=== PATIENT | male | born 1990 | race Caucasian/White ===

== ENCOUNTER 2025-02-03 13:24 | Outpatient (CLI) | payer OTHER, SELFPAY ==
[2025-02-03 14:08] LABS: Absolute Lymphocyte Count 1.48 X10^3/uL (0.83-4.51); Absolute Neutrophil Count 2.7 X10^3/uL (2.0-7.7); Basophil# 0.06 X10^3/uL; Basophil% 1.2 % (0-1); Eosinophil# 0.31 X10^3/uL; Eosinophils% 6.1 % (0-5); Hematocrit 35.1 % (40-54); Hemoglobin 11.8 g/dL (13.0-16.5); Lymphocyte # 1.48 X10^3/ul (0.83-4.51); Lymphocyte % 29.1 % (19-41); Mean Corp Hgb Conc 33.6 g/dL (32-36); Mean Corpuscular Hgb 31.1 pg (27.0-32.0); Mean Corpuscular Volume 92.4 fL (80-94); Mean Platelet Vol. 11.6 fl (6.2-12.0); Monocyte# 0.49 X10^3/uL; Monocyte% 9.6 % (0-10); NRBC Flagged by Analyzer 0 % (0-5); Neutrophil # 2.73 X10^3/uL (2.7-7.7); Neutrophil % 53.8 % (47-70); Platelet Count 243 K/mm3 (150-450); RBC Distribution Width CV 12.7 % (11.6-14.6); RBC Distribution Width SD 42.9 fl (35.1-43.9); White Blood Count 5.1 K/mm3 (4.4-11.0)
[2025-02-03 14:39] LABS: ALB/GLOB Ratio 1.9 RATIO (0.9-2.4); AST(SGOT) 17 U/L (<=37); Alanine Aminotransfer ALT/SGPT < 5 U/L (<=46); Albumin, Serum 4.1 g/dL (3.5-5.0); Alkaline Phosphatase 46 U/L (40-129); Anion Gap 9 (5-15); BUN 15 mg/dL (4-19); BUN/Creat Ratio 15.1 RATIO (10-20); Carbon Dioxide 25.5 mmol/L (21.0-32.0); Chloride 105 mmol/L (98-108); Creatinine, Serum 1.02 mg/dL (0.70-1.20); EST Glomerular Filtration Rate 98 (>60); Globulin 2.2 g/dL (2.2-4.2); Glucose 95 mg/dL (70-99); Potassium 4.3 mmol/L (3.3-5.1); Protein, Total 6.3 g/dL (5.9-8.4); Sodium Level 139 mmol/L (133-145)
[2025-02-03 22:06] LABS: Xtra Tube EP Lab EXTRA TUBE
== END 2025-02-03 23:59 | disposition home or self-care (01) ==
PROVIDERS: PCP Internal Medicine; Referring Provider Internal Medicine Infectious Disease; Visit Provider Internal Medicine Infectious Disease
DX: A49.02 Methicillin resistant Staphylococcus aureus infection, unspecified site (principal)
CPT/HCPCS: 36592; 80053; 85025; A4216

== ENCOUNTER 2025-02-10 10:18 | Outpatient (CLI) | payer OTHER, SELFPAY ==
[2025-02-10] MEDS: 0.9% NaCl PICC Flush IV (10:42)
[2025-02-10 11:03] LABS: Basophil# 0.03 X10^3/uL; Basophil% 0.6 % (0-1); Eosinophil# 0.12 X10^3/uL; Eosinophils% 2.4 % (0-5); Hematocrit 39.1 % (40-54); Hemoglobin 13.4 g/dL (13.0-16.5); Lymphocyte % 31.5 % (19-41); Mean Corp Hgb Conc 34.3 g/dL (32-36); Mean Corpuscular Hgb 31.4 pg (27.0-32.0); Mean Corpuscular Volume 91.6 fL (80-94); Mean Platelet Vol. 11.9 fl (6.2-12.0); Monocyte# 0.37 X10^3/uL; Monocyte% 7.3 % (0-10); NRBC Flagged by Analyzer 0 % (0-5); Neutrophil # 2.95 X10^3/uL (2.7-7.7); Platelet Count 250 K/mm3 (150-450); RBC Distribution Width CV 12.4 % (11.6-14.6); Red Blood Count 4.27 M/mm3 (4.6-6.2); White Blood Count 5.1 K/mm3 (4.4-11.0)
[2025-02-10 11:43] LABS: ALB/GLOB Ratio 1.7 RATIO (0.9-2.4); AST(SGOT) 16 U/L (<=37); Alanine Aminotransfer ALT/SGPT < 5 U/L (<=46); Albumin, Serum 4.4 g/dL (3.5-5.0); Alkaline Phosphatase 50 U/L (40-129); Anion Gap 10 (5-15); BUN 14 mg/dL (4-19); Calcium,Total 9.7 mg/dL (7.6-11.0); Carbon Dioxide 26.3 mmol/L (21.0-32.0); Chloride 102 mmol/L (98-108); Creatinine, Serum 0.96 mg/dL (0.70-1.20); EST Glomerular Filtration Rate 106 (>60); Globulin 2.6 g/dL (2.2-4.2); Glucose 122 mg/dL (70-99); Potassium 4.3 mmol/L (3.3-5.1); Sodium Level 138 mmol/L (133-145); Total Bilirubin 0.44 mg/dL (0.00-1.30)
[2025-02-10 18:56] LABS: Xtra Tube EP Lab EXTRA TUBE
--- OUTSIDE RECORDS SUMMARY | 2025-02-10 22:02 | XMS RPT_ITS | CCD ---
Author Organization [facility] Inform ion Partnership [facility] Care Team Providers Care Fiscal Manager Name Role Phone SAMUEL, NATALIE C Unavailable Unavaila ble SAMUEL, NATALIE C Unavailable Unavaila ble NINA FERNANDES Unavailable Unavailabl e Samuel DO, Natalie Unavailable Unavail able Samuel, Natalie C Unavailable Unavaila ble Physicians, [facility] Provide r Phan SOUZA, Dr. Forbes Primary Care Provider Dr. Rio Means MD Attending Provider Dr. Rio Means MD Referring Provider [phone] SALVATORE MAIER Other Provider Andrei Chisholm Primary Care Unavailable DOLLY DAMON Consulting Unavailable Rio Means Referring Unavailable Rio Means Attending Unavailable Andrei Chisholm Primary Care Unavailable Rio Means Referring Unavailable Rio Means Attending Unavailable DAVID CABAN Admitting Unavailable DAVID CABAN Attending Unavailable SALVATORE MAIER Consulting Unavailable SEDA BELLO Referring Unavailable MAIER, SALVATORE A Attending Unavailable MAIER, SALVATORE A Referring Unavailable MAIER, SALVATORE A Attending Unavailable MAIER, SALVATORE A Referring Unavailable SEDA BELLO Referring Unavailable SEDA BELLO D Referring Unavailable MAIER, SALVATORE A Attending Unavailable MAIER, SALVATORE A Admitting Unavailable MAIER, SALVATORE A Attending Unavailable JADA MEANS Consulting ZHANNA Maier Attending Unavailable MAIER, SALVATORE A Referring Unavailable Allergies Allergy Classification Reported Allergen(s) Allergy Type Date of Onset Reaction(s) Facility Opioid Agonists (1 source) Morphine Drug Allergy Hives [facility] Work Phone: (18 sources) amoxicillin; Translations: [AMOXICILLIN] Drug Allergy 6 [facility] Repository Comment on above: too young to remembe r (18 sources) morphine; Translations: [MORPHINE] Drug Allergy 1 [facility] (1 source) OTHER; Translations: [OTHER] Propensity to adverse reactions (disorder) 1 [facility] Medications Current Medications Medication Drug Class(es) Dates Sig (Normalized) Sig (Original) doxycycline hyclate 100 mg oral tablet (5 sources) Tetracycline-class Drug Start: 01-19-2025 End: 01-29-2025 take 1 tablet by mouth twice daily at mealtime doxycycline (VIBRA-TABS) 100 mg tablet Take 1 tablet by mouth two times a day with meals for 10 days. 20 tablet 01/19/2025 01/29/2025 Active gabapentin 300 mg oral capsule (13 sources) Anti-epileptic Agent Start: 12-14-2024 take 1 capsule by mouth once daily gabapentin (NEURONTIN) 300 mg capsule Take 1 capsule by mouth once daily for 5 doses. 5 capsule 12/14/2024 Active ibuprofen 800 mg oral tablet (14 sources) Nonsteroidal Anti-inflammatory Drug Start: 01-25-2025 take 1 tablet by mouth every eight hours as needed ibuprofen (MOTRIN) 800 mg tablet Take 1 tablet by mouth every 8 hours as needed for pain. 30 tablet 1 01/25/2025 Active take 1 tablet by stefani th every six hours as needed ibuprofen (MOTRIN IB) 200 mg tablet Take 200 mg by mouth every 6 hours as needed for pain. Last dose 01/22/25. Active multivit-min/ferrous fumarate (MULTI VITAMIN ORAL) (13 sources) multivit-min/martín darline fumarate (MULTI VITAMIN ORAL) Take by mouth. Active predniSONE 10 mg oral tablet (8 sources) Start: 2024 predniSONE (DELTASONE) 10 mg tablet Take 1 tablet by mouth once daily. TID x 3 days, BID x 3 days, Daily x 3 days. 18 tablet 01/07/2025 Active traMADol hydrochloride 100 mg oral tablet (1 source) Opioid Agonist take 1 tablet by mouth every six hours as needed traMADol 100 mg tablet Take 100 mg by mouth every 6 hours as needed for pain. Active Completed/Discontinued Medications Medication Drug Class(es) Dates Sig (Normalized) Sig (Original) [id number] 200 actuat albuterol 0.09 mg/actuat metered dose inhaler (1 source) beta2-Adrenergic Agonist Start: 07-28-2017 take 2 puff(s) by inhalation every four to six hours as needed ProAir HFA 108 (90 Base) MCG/ACT Inhalation Aerosol Solution INHALE 2 PUFFS EVERY 4-6 HOURS NEEDED. Quantity: 1 Refills: 0 [place] DONatalie Start : 28-Jul-2017 Active 8.5 GM Inhaler docusate sodium 50 mg / sennosides, fci 8.6 mg oral tablet (2 sources) Start: 12-14-2024 End: 12-23-2024 take 1 tablet by mouth once daily senna-docusate (SENNA-S) 8.6-50 mg per tablet Take 1 tablet by mouth once daily. 7 tablet 12/14/2024 12/23/2024 Discontinued Multivitamins TABS (1 source) Multivitamins TA BS Refills: 0 Active Problems Active Problems Problem Classification Problem Date Documented Date Episodic/Chronic Bacterial infection; unspecified site (1 source) Methicillin resistant Staphylococcus aureus infection, unspecified site; Translations: [Methicillin resistant Staphylococcus aureus infection, unspecified site] Onset: 02-06-2025 Episodic Complications of surgical procedures or medical care (2 sources) Postoperative wound infection; Translations: [Infection following a procedure, other surgical site, initial encounter] 01-20-2025 Episodic Fracture of upper limb (20 sources) Closed fracture of olecranon process of left ulna; Translations: [Displaced fracture of olecranon process without intraarticular extension of left ulna, initial encounter for closed fracture] Onset: 12-12-2024 12-13-2024 Episodic Joint disorders and dislocations; trauma-related (14 sources) Chondromalacia of patella; Translations: [Chondromalacia patellae, unspecified knee] Onset: 08-09-2006 12-17-2024 Chronic Other acquired deformities (1 source) Spondylolisthesis, lumbar region; Translations: [Anterolisthesis of lumbar spine] Onset: 12-12-2024 Episodic Other connective tissue disease (1 source) Hand pain; Translations: [Pain in limb] Episodic Other injuries and conditions due to external causes (14 sources) Traumatic injury; Translations: [Injury, unspecified, initial encounter] Onset: 12-12-2024 12-12-2024 Episodic Other lower respiratory disease (3 sources) Shortness of breath; Translations: [Cough] Onset: 07-28-2017 Episodic Other lower respiratory disease (1 source) Cough; Translations: [Cough] Episodic Other nervous system disorders (1 source) Skin sensation disturbance; Translations: [Disturbance of skin sensation] Episodic Other non-traumatic joint disorders (1 source) Pain in elbow; Translations: [Pain in left elbow] 02-07-2025 Episodic Other non-traumatic joint disorders (1 source) Effusion, unspecified knee; Translations: [Suprapatellar effusion of knee] Onset: 12-12-2024 Episodic Residual codes; unclassified (1 source) History finding; Translations: [Other specified conditions influencing health status] Episodic Residual codes; unclassified (1 source) History of operation on musculoskeletal system; Translations: [Other specified postprocedural states] 02-07-2025 Episodic Residual codes; unclassified (1 source) Other specified postprocedural states; Translations: [Status post surgery] Onset: 02-07-2025 Episodic Unclassified (2 sources) Cough / R05(ICD-10) Onset: 07-28-2017 Unclassified (2 sources) Shortness of breath / R06.02(ICD-10) Onset: 07-28-2017 Unclassified (2 sources) Pain in left hand / M79.642(ICD-10) Onset: 07-28-2017 Unclassified (2 sources) Unspecified disturbances of skin sensation / R20.9(ICD-10) Onset: 07-28-2017 Unclassified (2 sources) Pain in right hand / M79.641(ICD-10) Onset: 07-28-2017 Past or Other Problems Problem Classification Problem Date Documented Da te Episodic/Chronic Biliary tract disease (14 sources) Acute cholecystitis; Translations: [Acute cholecystitis] Onset: 01-15-2011 01-15-2011 Episodic Other nervous system disorders (1 source) Unspecified disturbances of skin sensation; Translations: [Unspecified disturbances of skin sensation] Onset: 07-28-2017 Episodic Other non-traumatic joint disorders (14 sources) Arthralgia of the pelvic region and thigh; Translations: [Pain in unspecified hip] Onset: 08-09-2006 12-17-2024 Episodic Other nutritional; endocrine; and metabolic disorders (14 sources) Body mass index 25-29 - overweight; Translations: [Overweight] Onset: 03-19-2014 03-19-2014 Episodic Spondylosis; intervertebral disc disorders; other back problems (14 sources) Low back pain; Translations: [Lumbago] Onset: 08-09-2006 12-17-2024 Episodic Suicide and intentional self-inflicted injury (1 source) Suicidal ideations; Translations: [Suicidal ideations] Onset: 10-21-2017 Episodic Unclassified (1 source) Pain in right hand; Translations: [Pain in right hand] Onset: 07-28-2017 Unclassified (1 source) Pain in left hand; Translations: [Pain in left hand] Onset: 07-28-2017 Unclassified (4 sources) Closed fracture of olecranon process of left ulna 12-23-2024 NEGATED: Highlighted row has not occurred!Residual codes; unclassified (1 source) Disease Episodic Results Test Name Value Interpretation Reference Range Facility [facility] 02-07-2025 CNOV Office Visit ([facility] ) DAVID MUNOZ ([id number]) 1990 M Date Time Provider Department 02/07/25 8:45 AM ZHANNA CHRISTY [facility] During your visit today, we recorded the following information about you: Pulse Weight Height 78/minute 89.8 kg 1.829 m Zhanna Christy APRN.CNP 02/07/2025 9:57 AM Signed SERVICE DATE: February 07, 2025 PCP: [facility] Subjective Patient ID: Davidjayne Munoz is a 35-year-old male presenting for follow-up of a left elbow wound. Left Elbow Wound: - Wound is healing well, but machine tender at times. - Not weight-bearing; moving the elbow more but avoiding lifting. - Concerned about previous infection. - Noticed finger tremors post-surgery; describes difficulty keeping fingers still. - Denies wound leakage. - Using long, [place] dressings, causing discomfort due to hair removal. - Girlfriend, a nurse, assists with wound care. -denies fever/chills Headaches: - Onset pre-infection; occurring every other day. Now less often, in temples. - Located above the temples and on the top of the head. - Alleviated with ibuprofen/tylenol. Chief Complaint Left Elbow - Post Op PAIN EVALUATION 02/07/2025 0831 Pain Level: 3 Pain Location: Elbow-Left Description: Tenderness Duration Amount of Time: 12 Duration Units: Days Frequency: Intermittent HPI Review of Systems ACTIVE PROBLEM LIST Chondromalacia of Patella PAIN LOW BACK Pain in Joint, Pelvic Region and Thigh Acute Cholecystitis Overweight (Bmi 25.0-29.9) Trauma Olecranon Fracture, Left, Closed, Initial Encounter Nondisplaced Fracture of Coronoid Process of Left Ulna, Initial Encounter for Closed Fracture Left Radial Head Fracture Preop Testing Closed Comminuted Fracture of Proximal End of Left Ulna, [place] PAST MEDICAL HISTORY Diagnosis Date History of blood clotting factor deficiency grandmother and mom have factor 5 Pure hypercholesterolemia no meds PAST SURGICAL HISTORY Procedure Laterality Date LAPS SURG CHOLECYSTECTOMY W/CHOLANGIOGRAPHY 01/14/2011 Normal IOC, Acute cholecystitis TREAT ULNAR FRACTURE Left 12/13/2024 FAMILY HISTORY Problem Relation Age of Onset Cancer Other uterine Cancer Other Diabetes Maternal Grandmother other (increased chol [Other]) Other mother Social History Tobacco Use Smoking status: Former Types: Cigarettes Smokeless tobacco: Current Types: Chew Tobacco comments: Quit smoking 2017. Now uses the [employer] nicotine pouches. Vaping Use Vaping status: Former Substance Use Topics Alcohol use: No Drug use: Never ALLERGIES Allergen Reactions Amoxicillin Rash Morphine Hives MEDICATIONS: traMADol 100 mg tablet Take 100 mg by mouth every 6 hours as needed for pain. ibuprofen (MOTRIN) 800 mg tablet Take 1 tablet by mouth every 8 hours as needed for pain. ibuprofen (MOTRIN IB) 200 mg tablet Take 200 mg by mouth every 6 hours as needed for pain. Last dose 01/22/25. predniSONE (DELTASONE) 10 mg tablet Take 1 tablet by mouth once daily. TID x 3 days, BID x 3 days, Daily x 3 days. (Patient not taking: Reported on 02/07/2025) multivit-min/ferrous fumarate (MULTI VITAMIN ORAL) Take by mouth. (Patient not taking: Reported on 02/07/2025) gabapentin (NEURONTIN) 300 mg capsule Take 1 capsule by mouth once daily for 5 doses. (Patient taking differently: Take 300 mg by mouth once daily. No longer on pacc call 01/22/25) Allergies, medications, past surgical history, family history and past medical history were reviewed per this encounter. Objective Ortho Exam Musculoskeletal: (+) elbow tenderness Skin: (-) forearm rash on exam, (+) bilateral arm pruritus with antibiotic infusion, (-) wound drainage Neurological: (+) finger tremor, (-) elbow tremor, (+) headaches - Musculoskeletal: - Elbow: Wound healing well, no signs of infection, mild tenderness noted. Assessment/Plan ASSESSMENT Diagnosis (Z98.890) Status post surgery (primary encounter diagnosis) Plan: XR ELBOW GENERAL 2V AP/LAT LEFT Office Visit on 02/07/25 XR ELBOW GENERAL 2V AP/LAT LEFT Procedures PLAN Assessment AND Plan Status post surgery Pain in left elbow Wound infection after surgery Status post open reduction and internal fixation (ORIF) of fracture 1. Status post surgery (Z98.890) 2. Wound infection after surgery (T81.49XA) 3. Ulna fracture (ORIF), left, closed - Surgical site healing well; area over the elbow, typically the last to heal due to frequent movement, is progressing satisfactorily. - Sutures removed; no signs of purulent discharge or significant edema/erythema. - No need for wound dressing unless exudate is present; advised to leave the wound open to air and avoid application of lotions, creams, or ointments. - Scheduled follow-up in 2 weeks to assess wound healing and discuss progression to weight-bearing activities. (more content not included)... Normal [facility] Absolute lymphocyte countOrd ered By: Rio Means on 02-03-2025 Lymphocytes Auto (Unsp spec) [#/Vol] 1.48 10*3/uL 0.83-4.51 [facility] Absolute neutrophil countOrd ered By: Rio Means on 06-16-2025 Neutrophils (Bld) [#/Vol] 2.7 10*3/uL 2.0-7.7 [facility] Anion gap in Serum or Plasma Ordered By: Rio Means on 02-03-2025 Anion gap [Moles/Vol] 9 mmol/L 5-15 [facility] Automated blood erythrocyte countOrdered By: Rio Means on 02-03-2025 RBC (Bld) [#/Vol] 3.80 10*6/uL Low 4.6-6.2 [facility] Comment on above: Performed By: #### L 100.0100, L500.4050 #### [facility] [address] [place], [place], [id number] Automated blood hematocrit ( percentage)Ordered By: Rio Means on 02-03-2025 Hematocrit (Bld) [Volume fraction] 35.1 % Low 40-54 [facility] Comment on above: Performed By: #### L 100.0100, L500.4050 #### [facility] [address] [place], [place], [id number] Automated lymphocyte count a s percentage of total leukocytesOrdered By: Rio Means on 02-03-2025 Lymphocytes/100 WBC Auto (Unsp spec) 29.1 % 19-41 [facility] BUN/creatinine ratioOrdered By: Rio Means on 02-03-2025 Urea nitrogen/Creatinine [Mass ratio] 15.1 mg/mg 10-20 [facility] Basophil percentageOrdered B y: Rio Means on 02-03-2025 Basophils/100 WBC (Bld) 1.2 % High 0-1 [facility] Comment on above: Performed By: #### L 100.0100, L500.4050 #### [facility] [address] [place], [place], [id number] Bilirubin, totalOrdered By: Rio Means on 02-03-2025 Bilirubin [Mass/Vol] 0.30 mg/dL Normal 0.00-1.30 [facility] Comment on above: Performed By: #### L 100.0100, L500.4050 #### [facility] [address] [place], [address] CBC W/Diff, Automatedon 01-19 Absolute Lymph 1.48 X10 3/uL Normal 0.83-4.51 [facility] Comment on above: Performed By: #### L 100.0100, L500.4050 #### [facility] [address] [place], [address] Absolute Neut 2.7 X10 3/uL Normal 2.0-7.7 [facility] Comment on above: Performed By: #### L 100.0100, L500.4050 #### [facility] [address] [place], [address] IG% 0.200 Normal 0.0-0.9 [facility] Comment on above: Result Comment: IG% - Immature Granulocytes (promyelocytes, myelocytes and metamyelocytes) > 1% indicates that a LEFT SHIFT is Present. Performed By: #### L 100.0100, L500.4050 #### [facility] [address] [place], [address] Lymphocytes/100 WBC (Bld) 29.1 % Normal 19-41 [facility] Comment on above: Performed By: #### L 100.0100, L500.4050 #### [facility] [address] [place], [address] Nucleated RBC (Bld) [#/Vol] 0 10*3/uL Normal 0-5 [facility] Comment on above: Performed By: #### L 100.0100, L500.4050 #### [facility] [address] [place], [address] RDW SD 42.9 fl Normal 35.1-43.9 [facility] Comment on above: Performed By: #### L 100.0100, L500.4050 #### [facility] [address] [place], [address] Carbon dioxide, total [Moles /volume] in Central venous bloodOrdered By: Rio Means on 02-03-2025 CO2 [Moles/Vol] 25.5 mmol/L Normal 21.0-32.0 [facility] Comment on above: Performed By: #### L 100.0100, L500.4050 #### [facility] [address] [place], [address] Chloride assayOrdered By: Cruz Means on 02-03-2025 Chloride [Moles/Vol] 105 mmol/L Normal 98-108 [facility] Comment on above: Performed By: #### L 100.0100, L500.4050 #### [facility] [address] [place], [address] Comprehensive Metabolic Prof ilon 02-03-2025 ALK PHOS 46 U/L Normal 40-129 [facility] Comment on above: Performed By: #### L 100.0100, L500.4050 #### [facility] [address] [place], [address] BUN/CRE 15.1 RATIO Normal 10-20 [facility] Comment on above: Performed By: #### L 100.0100, L500.4050 #### [facility] [address] [place], [address] GAP 9 Normal 5-15 [facility] Comment on above: Performed By: #### L 100.0100, L500.4050 #### [facility] [address] [place], [address] Potassium [Moles/Vol] 4.3 mmol/L Normal 3.3-5.1 [facility] Comment on above: Performed By: #### L 100.0100, L500.4050 #### [facility] [address] [place], [address] T PROT 6.3 g/dL Normal 5.9-8.4 [facility] Comment on above: Performed By: #### L 100.0100, L500.4050 #### [facility] [address] [place], [address] Comprehensive Metabolic Prof ilOrdered By: Rio Means on 02-03-2025 AST [Catalytic activity/Vol] 17 U/L Normal <=37 [facility] Comment on above: Performed By: #### L 100.0100, L500.4050 #### [facility] [address] [place], [address] Eosinophil percentageOrdered By: Rio Means on 02-03-2025 Eosinophils/100 WBC (Bld) 6.1 % High 0-5 [facility] Comment on above: Performed By: #### L 100.0100, L500.4050 #### [facility] [address] [place], [address] Erythrocyte distribution wid th ratioOrdered By: Rio Means on 02-03-2025 Erythrocyte distribution width (RBC) [Ratio] 12.7 % Normal 11.6-14.6 [facility] Comment on above: Performed By: #### L 100.0100, L500.4050 #### [facility] [address] [place], [address] Erythrocyte distribution wid th standard deviationOrdered By: Rio Means on 02-03-2025 Erythrocyte distribution width (RBC) [Ratio] 42.9 fl 35.1-43.9 [facility] Glomerular filtration rate ( GFR) estimation/1.73 sq m using serum, plasma, or whole bOrdered By: Rio Means on 02-03-2025 GFR/1.73 sq M.predicted among non-blacks MDRD (S/P/Bld) [Vol rate/Area] 98 mL/min/{1.73_m2} Normal >60 [facility] Comment on above: mL/min/1.73m2 CKD-EP I Creatinine Equation (2020) Result Comment: mL/m in/1.73m2 CKD-EPI Creatinine Equation (2020) Performed By: #### L 100.0100, L500.4050 #### [facility] [address] [place], [address] Hemoglobin measurementOrdere d By: Rio Means on 02-03-2025 Hemoglobin (Bld) [Mass/Vol] 11.8 g/dL Low 13.0-16.5 [facility] Comment on above: Performed By: #### L 100.0100, L500.4050 #### [facility] [address] [facility] [place], [address] Immature granulocytes/100 WB C Auto (Bld)Ordered By: Rio Means on 02-03-2025 Immature granulocytes/100 WBC (Bld) 0.200 % 0.0-0.9 [facility] Comment on above: IG% - Immature Granu locytes (promyelocytes, myelocytes and metamyelocytes) > 1% indicates that a LEFT SHIFT is Present. MCV (mean corpuscular volume ) determinationOrdered By: Rio Means on 02-03-2025 MCV (RBC) [Entitic vol] 92.4 fL Normal 80-94 [facility] Comment on above: Performed By: #### L 100.0100, L500.4050 #### [facility] [address] [place], [address] Mean corpuscular hemoglobin (MCH) determinationOrdered By: Rio Means on 02-03-2025 MCH (RBC) [Entitic mass] 31.1 pg Normal 27.0-32.0 [facility] Comment on above: Performed By: #### L 100.0100, L500.4050 #### [facility] [address] [place], [address] Mean corpuscular hemoglobin concentration (MCHC) determinationOrdered By: Rio Means on 02-03-2025 MCHC (RBC) [Mass/Vol] 33.6 g/dL Normal 32-36 [facility] Comment on above: Performed By: #### L 100.0100, L500.4050 #### [facility] [address] [place], [address] Mean platelet volume determi nationOrdered By: Rio Means on 02-03-2025 Platelet mean volume (Bld) [Entitic vol] 11.6 fL Normal 6.2-12.0 [facility] Comment on above: Performed By: #### L 100.0100, L500.4050 #### [facility] [address] [place], [address] Monocyte percentageOrdered B y: Rio Means on 02-03-2025 Monocytes/100 WBC (Bld) 9.6 % Normal 0-10 [facility] Comment on above: Performed By: #### L 100.0100, L500.4050 #### [facility] [address] [place], [address] Neutrophil percentageOrdered By: Rio Means on 02-03-2025 Neutrophils/100 WBC (Bld) 53.8 % Normal 47-70 [facility] Comment on above: Performed By: #### L 100.0100, L500.4050 #### [facility] [address] [place], [address] Nucleated red blood cell per centageOrdered By: Rio Means on 02-03-2025 Nucleated RBC/100 WBC (Bld) [Ratio] 0 % 0-5 [facility] Platelet countOrdered By: Cruz Means on 02-03-2025 Platelets (Bld) [#/Vol] 243 10*3/uL Normal 150-450 [facility] Comment on above: Performed By: #### L 100.0100, L500.4050 #### [facility] [address] [place], [address] Potassium measurement (mass/ volume)Ordered By: Rio Means on 02-03-2025 Potassium (Unsp spec) [Mass/Vol] 4.3 mmol/L 3.3-5.1 [facility] Serum creatinine measurement (mass/volume)Ordered By: Rio Means on 02-03-2025 Creatinine [Mass/Vol] 1.02 mg/dL Normal 0.70-1.20 [facility] Comment on above: Performed By: #### L 100.0100, L500.4050 #### [facility] [address] [place], [address] Serum globulin measurementOr dered By: Rio Means on 02-03-2025 Globulin (S) [Mass/Vol] 2.2 g/dL Normal 2.2-4.2 [facility] Comment on above: Performed By: #### L 100.0100, L500.4050 #### [facility] [address] [place], [address] Serum glucose measurement (m ass/volume)Ordered By: Rio Means on 02-03-2025 Glucose [Mass/Vol] 95 mg/dL Normal 70-99 [facility] Comment on above: Performed By: #### L 100.0100, L500.4050 #### [facility] [address] [place], [address] Serum or plasma alanine kamara otransferase (ALT) measurementOrdered By: Rio Means on 02-03-2025 ALT [Catalytic activity/Vol] U/L Normal <=46 [facility] Comment on above: Performed By: #### L 100.0100, L500.4050 #### [facility] [address] [place], [address] Serum or plasma albumin maikel urement (mass/volume)Ordered By: Rio Means on 02-03-2025 Albumin [Mass/Vol] 4.1 g/dL Normal 3.5-5.0 [facility] Comment on above: Performed By: #### L 100.0100, L500.4050 #### [facility] [address] [place], [address] Serum or plasma albumin/glob ulin mass ratioOrdered By: Rio Means on 02-03-2025 Albumin/Globulin [Mass ratio] 1.9 {ratio} Normal 0.9-2.4 [facility] Comment on above: Performed By: #### L 100.0100, L500.4050 #### [facility] [address] [place] [place], [address] Serum or plasma alkaline shamar sphatase measurementOrdered By: Rio Means on 02-03-2025 ALP [Catalytic activity/Vol] 46 U/L 40-129 [facility] Serum or plasma calcium maikel urement (mass/volume)Ordered By: Rio Means on 02-03-2025 Calcium [Mass/Vol] 9.0 mg/dL Normal 7.6-11.0 [facility] Comment on above: Performed By: #### L 100.0100, L500.4050 #### [facility] [address] [place], [address] Serum or plasma urea nitroge n measurement (mass/volume)Ordered By: Rio Means on 02-03-2025 Urea nitrogen [Mass/Vol] 15 mg/dL Normal 4-19 [facility] Comment on above: Performed By: #### L 100.0100, L500.4050 #### [facility] [address] [place], [address] Sodium levelOrdered By: Rio eMans on 02-03-2025 Sodium [Moles/Vol] 139 mmol/L Normal 133-145 [facility] Comment on above: Performed By: #### L 100.0100, L500.4050 #### [facility] [address] [place], [address] Total proteinOrdered By: Rosemarie cotter Clary on 02-03-2025 Protein [Mass/Vol] 6.3 g/dL 5.9-8.4 [facility] White blood cell (WBC) count Ordered By: Rio Clary on 02-03-2025 WBC (Bld) [#/Vol] 5.1 10*3/uL Normal 4.4-11.0 [facility] Comment on above: Performed By: #### L 100.0100, L500.4050 #### [facility] [address] [place], [place], [address] CNDSon 01-28-2025 [facility] HNO ID: [id number] Author: SALVATORE MAIER MD Service: Orthopaedic Surgery Author Type: Nurse Practitioner Type: Discharge Summary Filed: 01/28/2025 11:33 Note Text: Attestation signed by Salvatore Maier MD at 01/28/2025 11:33 AM Agree DISCHARGE SUMMARY PATIENT NAME: David Munoz ADMISSION DATE: 01/24/2025 DISCHARGE DATE: 01/28/2025 ATTENDING PHYSICIAN: Salvatore Maier MD Code Status: Prior Highest Readmission Risk Score: 7 The 30 day readmissions risk score is derived from an internally validated risk model which evaluates patient level characteristics, utilization history, medication orders and lab results up until the day of discharge. Patients with a score of 39 or above are considered highest risk for readmission. Specific patient level drivers will be listed at the bottom of the summary. CONSULTING TEAMS DURING HOSPITALIZATION: Treatment Team: Attending Provider: Salvatore Maier MD Consulting: Jada Means MD REASON FOR HOSPITALIZATION: Left elbow post operative infection. FINAL DIAGNOSIS: Left elbow IANDD Active Hospital Problems Diagnosis POA Closed comminuted fracture of proximal end of left ulna, sequela Yes Preop testing Unknown Resolved Hospital Problems No resolved problems to display. OPERATIONS DURING HOSPITALIZATION: Left elbow I AND D PROCEDURES DURING HOSPITALIZATION: No procedures performed HOSPITAL COURSE: Principal Problem: Closed comminuted fracture of proximal end of left ulna, sequela Active Problems: Preop testing Resolved Problems: * No resolved hospital problems. * PATIENT CONDITION AT DISCHARGE: Stable DISCHARGE DISPOSITION: Home with Self Care Discharge Physical Exam: VITAL SIGNS: BP 107/67 Pulse 68 Temp 36.6 ?C (97.8 ?F) Resp 18 Ht 182.9 cm (6') Wt 90.2 kg (198 lb 13.7 oz) SpO2 96% BMI 26.97 kg/m? GENERAL: Alert, no distress, cooperative SKIN: Skin color, texture, turgor normal. No rashes or lesions. EXTREMITIES: Extremities normal, no deformities, edema, clubbing or skin discoloration. Good capillary refill., No ulcers NEURO: Gait normal. Reflexes normal and symmetric. Sensation grossly intact, Cranial nerves II-XII intact PULSES: 2+ radial INFORMATION PROVIDED TO PATIENT: Symptoms of an Infection to Watch for Include: Fever Swelling Increase in Redness Pus WOUND/SURGICAL SITE CARE: Wound/Surgical Site Care Do not change or remove your dressing Keep your dressing clean and dry Wash your hands frequently, especially before touching your incision, after using restroom and before eating You may change your dressing daily beginning on: Day 7 You may change your dressing daily beginning on: Please remove wound vac dressing post op day 7 or when the wound vac battery dies, whichever comes first. You may change your dressing daily beginning on Post operative day 7 DIET: Resume your pre-hospital diet ACTIVITY: Lifting is restricted to: Non weight bearing left arm ALLERGIES Allergen Reactions Amoxicillin Rash Morphine Hives DISCHARGE MEDICATION: Medication List START taking these medications traMADol 50 mg tablet Commonly known as: ULTRAM Take 1 tablet by mouth every 6 hours as needed for pain for up to 7 days. CHANGE how you take these medications gabapentin 300 mg capsule Commonly known as: NEURONTIN Take 1 capsule by mouth once daily for 5 doses. What changed: additional instructions * MOTRIN IB 200 mg tablet Generic drug: ibuprofen What changed: Another medication with the same name was added. Make sure you understand how and when to take each. * ibuprofen 800 mg tablet Commonly known as: MOTRIN Take 1 tablet by mouth every 8 hours as needed for pain. What changed: You were already taking a medication with the same name, and this prescription was added. Make sure you understand how and when to take each. * This list has 2 medication(s) that are the same as other medications prescribed for you. Read the directions carefully, and ask your doctor or other care provider to review them with you. CONTINUE taking these medications doxycycline 100 mg tablet Commonly known as: vibra-tabs Take 1 tablet by mouth two times a day with meals for 10 days. MULTI VITAMIN ORAL predniSONE 10 mg tablet Commonly known as: DELTASONE Take 1 tablet by mouth once daily. TID x 3 days, BID x 3 days, Daily x 3 days. Where to Get Your Medications These medications were sent to [facility] [address] [place] [phone] [place] [id number] ibuprofen 800 mg tablet traMADol 50 mg tablet FUTURE APPOINTMENTS: Future Appointments Date Time Provider Department Center 02/07/2025 8:45 AM Zhanna Christy APRN. (more content not included)... [facility] CONSULT PROHitesh 2025 CONSULT PROG HNO ID: [id number] Author: SENIA ADKINS RPh Service: Pharmacy Author Type: Pharmacist Type: Consult Progress Note Filed: 2025 09:10 Note Text: PHARMACY VANCOMYCIN DOSING NOTE Patient Name: David Munoz Admission Date: 01/24/2025 Date of Consult: 2025 Time of Consult: 9:10 AM RECOMMENDATIONS/PLAN: Pharmacy consulted for vancomycin dosing for David Munoz, a 35 year old male. Vancomycin therapy has been discontinued. Vancomycin level(s) have been discontinued: Not Applicable. The pharmacy vancomycin dosing service will sign off. Thank you for allowing us to participate in this patient's care. Please contact pharmacy if there are questions. Senia Adkins [facility] ESR Westergren method (Bld) [Velocity]on 01-26-2025 ESR (Bld) [Velocity] 16 mm/h High 0-15 [facility] Comment on above: Order Comment: Speci men Type: BLOOD SPECIMEN Ordering Facility: [facility] Address: [address] [place], [place] [address] [address] Performed By: #### 2 4323-8, 3040-3, 5643-2 #### [facility] CLIA [id number] [address] [place] [address] [place] ANES POSTPROC EVALon 025 ANES POSTPROC EVAL HNO ID: [id number] Author: LAURIE HOLLY DO Service: Anesthesiology Author Type: Anesthesiologist Type: Anesthesia Postprocedure Evaluation Filed: 01/25/2025 06:45 Note Text: POST ANESTHESIA EVALUATION NOTE : 1990 Procedure Summary Date: 01/24/25 Room / Location: OR 01 / OR Anesthesia Start: 1618 Anesthesia Stop: 1718 Procedure: INCISION AND DRAINAGE POST OP INFECTION UPPER EXTREMITY (Left: Elbow) Diagnosis: Olecranon fracture, left, closed, initial encounter (Olecranon fracture, left, closed, initial encounter [S52.022A]) Surgeons: Salvatore Maier MD Responsible Provider: Laurie Holly DO Anesthesia Type: general ASA Status: 2 Anesthesia Type: general Airway Type: LMA Last Vitals Vitals Value Taken Time BP 99/50 01/25/25 0307 Temp 36.8 ?C (98.2 ?F) 01/25/25 0307 HR SpO2 61 01/24/25 1818 Resp 16 01/25/25 0307 SpO2 96 % 01/25/25 0307 Vitals shown include unfiled device data. Post Anesthesia Patient Status Patient Evaluation: PACU. PACU/ICU Patient Condition: stable. Anticipated Disposition: inpatient floor planned admission. Neurological Status: aware and responsive. Pulmonary Status: breathing comfortably on room air Airway Control: returned to baseline unsupported. Cardiovascular Status: stable. Pain Management: clinically adequate - multimodal analgesia pain management approach Postoperative Hydration: acceptable. Intraoperative Events: no significant anesthesia events Recommendation: continue current plan of care. Anesthesia Observations No Documentation SIGNATURE: Laurie Holly DO PATIENT NAME: David Munoz DATE: January 25, 2025 TIME: 6:45 AM CSN: [id number] [facility] CONSULTon 01-25-2025 CONSULT HNO ID: [id number] Author: JADA MEANS MD Service: Infectious Disease Author Type: Physician Type: Consults Filed: 01/25/2025 11:28 Note Text: INFECTIOUS DISEASE INITIAL CONSULT NOTE SERVICE DATE: 01/25/2025 SERVICE TIME: 11:24 AM REASON FOR CONSULT: Postop left olecranon fracture orthopedic repair with infection Subjective Patient is seen at the request of Salvatore Davis MD for my opinion regarding postop infection left elbow. My final recommendations will be communicated back to the requesting physician by way of copy of this note or shared electronic medical record. HPI: David Munoz who is a 34 year old male suffered a traumatic fall with a left olecranon fracture in late November and underwent surgical repair of the left olecranon fracture on December 13. Patient did well postop until roughly 10 days ago when he noted increasing swelling at the surgical site and then noted drainage. Patient did have low-grade fever late last week. Noted purulent drainage that prompted administration of oral antibiotic therapy. Patient was taken to the operating room yesterday for surgical IANDD of the left elbow surgical site. Operative note reviewed. Currently on parenteral vancomycin. Does not recall the name of the oral antibiotic that he received for his girlfriend who is a nurse will easily know and the patient is reaching out to her. PAST MEDICAL HISTORY Diagnosis Date History of blood clotting factor deficiency grandmother and mom have factor 5 Pure hypercholesterolemia no meds PAST SURGICAL HISTORY Procedure Laterality Date LAPS SURG CHOLECYSTECTOMY W/CHOLANGIOGRAPHY 01/14/2011 Normal IOC, Acute cholecystitis TREAT ULNAR FRACTURE Left 12/13/2024 Social History Tobacco Use Smoking status: Former Types: Cigarettes Smokeless tobacco: Current Types: Chew Tobacco comments: Quit smoking 2017. Now uses the [employer] nicotine pouches. Vaping Use Vaping status: Former Substance Use Topics Alcohol use: No Drug use: Never FAMILY HISTORY Problem Relation Age of Onset Cancer Other uterine Cancer Other Diabetes Maternal Grandmother other (increased chol [Other]) Other mother Immunization History Administered Date(s) Administered Haemophilus influenzae b (HbOC) vaccine, 4-dose series (HIBTITER) 1990 05/23/1991 06/12/1993 04/12/1995 diphtheria tetanus pertussis (DTaP) vaccine, pediatric (INFANRIX) 1990 1990 1990 06/12/1993 04/12/1995 measles mumps rubella (MMR) vaccine (M-M-R II, PRIORIX) 05/23/1991 poliovirus (OPV) vaccine, trivalent, live, oral (ORIMUNE) 1990 1990 06/12/1993 04/12/1995 tuberculin skin test (TST-PPD), purified protein derivative, intradermal 05/23/1991 Current Facility-Administered Medications Medication Dose Route Frequency vancomycin iv piggyback 1 g in D5W 200 mL (VANCOCIN) 1 g INTRAVENOUS q 12 HR gabapentin 300 mg cap(s) (NEURONTIN) 300 mg ORAL DAILY pkjzmfe-sduyccayr-ayjxplh D3 500 mg-5 mcg (200 unit) 2 tablet 2 tablet ORAL BID lactated ringers iv infusion 75 mL/hr INTRAVENOUS CONTINUOUS traMADol 50 mg tab(s) (ULTRAM) 50 mg ORAL q 6 H PRN ondansetron (PF) 4 mg injection (ZOFRAN) 4 mg INTRAVENOUS q 6 H PRN ibuprofen 800 mg tab(s) (MOTRIN) 800 mg ORAL q 8 H PRN HYDROmorphone (PF) 0.5 mg injection (DILAUDID) 0.5 mg INTRAVENOUS q 4 H PRN Active Antimicrobials (From admission, onward) Start Stop 01/25/25 0830 vancomycin iv piggyback 1 g in D5W 200 mL (VANCOCIN) 1 g, INTRAVENOUS, EVERY 12 HOURS -- ALLERGIES Allergen Reactions Amoxicillin Rash Morphine Hives REVIEW OF SYSTEMS: See HPI As stated in history of present illness others negative Objective PHYSICAL EXAM: BP 109/64 Pulse 56 Temp (Src) 98.1 (Oral) Resp 16 Ht 6' 0 (1.83m) Wt 198 lb 13.7 oz (90.2kg) SpO2 98% BMI 26.96 kg/(m2). O2 Therapy: Room Air Alert responsive does not appear toxic head and neck exams unremarkable lungs are clear heart exam S1-S2 abdomen soft nontender. Left arm postop dressings are in place Lines, Drains, and Airways Line Duration Peripheral 01/24/25 1452 Right Antecubital 20 Gauge <1 day DATA: Diagnostic tests reviewed for today's visit: CBC, Coags, BMP, Mg, Phos Liver Function, Amylase, AND Lipase Impression/Recommendations David Munoz is a 34 year old male postop left olecranon fracture repair infection. Status post surgical IANDD of the left elbow. Will closely follow the intraoperative culture data and continue parenteral antimicrobial therapy at this time. Empirically on parenteral vancomycin. The patient will provide me with the name of the oral antibiotic that he took shortly before his surgery this week. Please feel free to call or page us with concerns or questions. Thank you for allowing us to partake in the care of your patient. SIGNATURE: Jada Means MD PATIENT NAME: David Munoz DATE: January 25 (more content not included)... [facility] ANES PRE-OPon 01-24-2025 ANES PRE-OP HNO ID: [id number] Author: DENNIS BOLAND DO Service: Anesthesiology Author Type: Anesthesiologist Type: Anesthesia Preprocedure Evaluation Filed: 01/24/2025 14:30 Note Text: ANESTHESIOLOGY DAY OF SURGERY NOTE : 1990 Procedure Information Date/Time: 01/24/25 1530 Procedure: INCISION AND DRAINAGE POST OP INFECTION UPPER EXTREMITY (Left: Elbow) Location: OR 01 / MR OR Surgeons: Salvatore Maier MD Estimated body mass index is 26.97 kg/m? as calculated from the following: Height as of this encounter: 182.9 cm (6'). Weight as of this encounter: 90.2 kg (198 lb 13.7 oz). Diagnosis: Olecranon fracture, left, closed, initial encounter [S52.022A] Pre-op diagnosis: Olecranon fracture, left, closed, initial encounter [S52.022A] Location: OR 01 / MR OR Surgeons: Salvatore Maier MD Most recent hematocrit and potassium results: Hematocrit 41.3 12/13/2024 Potassium 4.2 12/13/2024 Hemoglobin (g/dL) Date Value 12/13/2024 14.6 10/21/2017 16.7 Hematocrit (%) Date Value 12/13/2024 41.3 10/21/2017 48.8 WBC (k/uL) Date Value 12/13/2024 7.40 10/21/2017 8.60 Platelet Count (k/uL) Date Value 12/13/2024 210 10/21/2017 287 CMP: Glucose 103 12/13/2024 BUN 18 12/13/2024 Creatinine 0.97 12/13/2024 Sodium 136 12/13/2024 Potassium 4.2 12/13/2024 Chloride 105 12/13/2024 CO2 26 12/13/2024 Protein, Total 6.7 12/12/2024 Albumin 4.2 12/12/2024 Calcium 9.3 12/13/2024 Alkaline Phosphatase 48 12/12/2024 Bilirubin, Total 0.7 12/12/2024 AST 26 12/12/2024 ALT 16 12/12/2024 34yo male, exsmoker, chews tobacco. PMH: last OR 11/2024, HLD (no meds) History Comments Pure hypercholesterolemia no meds History of blood clotting factor deficiency grandmother and mom have factor 5 Relevant Problems No relevant active problems Surgical History Current as of 01/24/25 142 LAPS SURG CHOLECYSTECTOMY W/CHOLANGIOGRAPHY TREAT ULNAR FRACTURE left 12/13/2024 Substance History Current as of 01/24/25 1424 Smoking Status: Former Smokeless Tobacco Status: Current Comments: Quit smoking 2016. Now uses the [employer] nicotine pouches. Alcohol use: No Drug use: Never I - PHYSICAL EVALUATION AIRWAY Patient intubated: No. Tracheostomy tube not present Mallampati: I. TM distance: >3 FB. Neck ROM: full ROM without neurological symptoms. Mouth opening: adequate. Short neck: no. Thick neck: no Johnston present: yes Lip Bite Test: I Microretrognathia/Micronagthi a/Recessed Chin: No DENTAL Dental findings: teeth intact. Additional exam findings: yes. CARDIOVASCULAR Rhythm: regular PULMONARY Breath sounds clear to auscultation. II - ANESTHESIA PLAN ASA Score: 2 Anesthetic Plan: general Airway type: LMA The patient is not a current smoker. NPO Status: adequate Anesthetic plan additional comments: The patient admitted to chewing tobacco.. Beta Alex Monitoring Plan Monitoring plan: standard ASA. Post Procedure Analgesic Plan Postoperative analgesic plan: multimodal analgesia. Informed Consent Anesthetic risks, benefits, alternatives, personnel and consent discussed: yes. Patient / Responsible Republican agrees to proceed: yes Patient / Surrogate agrees to blood products: blood products not planned Discussed the possibility of lip / dental damage: yes Vitals Value Taken Time BP 129/61 01/24/25 1417 Pulse 63 01/24/25 1418 Resp 18 01/24/25 1414 Temp 36.6 ?C (97.9 ?F) 01/24/25 1414 SpO2 100 % 01/24/25 1418 Vitals shown include unfiled device data. Facility-Administered Medications as of 01/24/2025 Medication Dose Route Frequency lidocaine 10 mg/mL (1 %) 2 mg injection (XYLOCAINE) 0.2 mL INTRADERMAL PRN NaCl 0.9% iv infusion 30 mL/hr INTRAVENOUS CONTINUOUS NaCl 0.9% iv flush bag 20 mL INTRAVENOUS PRN Outpatient Medications as of 01/24/2025 Medication Sig doxycycline (VIBRA-TABS) 100 mg tablet Take 1 tablet by mouth two times a day with meals for 10 days. predniSONE (DELTASONE) 10 mg tablet Take 1 tablet by mouth once daily. TID x 3 days, BID x 3 days, Daily x 3 days. multivit-min/ferrous fumarate (MULTI VITAMIN ORAL) Take by mouth. ibuprofen (MOTRIN IB) 200 mg tablet Take 200 mg by mouth every 6 hours as needed for pain. Last dose 01/22/25. gabapentin (NEURONTIN) 300 mg capsule Take 1 capsule by mouth once daily for 5 doses. (Patient taking differently: Take 300 mg by mouth once daily. No longer on pacc call 01/22/25) I have interviewed and examined the patient. I have reviewed the medical record and/or the pre-anesthesia evaluation, pertinent labs, and test results. This contains updated information obtained within 48 hours of Surgery/Procedure. SIGNATURE: Dennis Boland DO PATIENT NAME: David Munoz DATE: January 24, 2025 TIME: 2:22 PM CSN: [id number] [facility] Bacteria Spec Anaerobe Culto n 01-24-2025 Bacteria identified Anaer cx Nom (Unsp spec) Negative [facility] Comment on above: Performed By: #### 2 4323-8, 3040-3, 5643-2 #### [facility] CLIA [id number] [address] [place] [address] Bacteria identified Anaer cx Nom (Unsp spec) Negative [facility] Comment on above: Performed By: #### 2 4323-8, 3040-3, 5643-2 #### [facility] CLIA [id number] [address] [place] [address] [place] Bacteria Wnd Culton 01-25-20 25 Bacteria identified Cx Nom (Wound) ORGANISM ID: 1 Many Staphylococcus aureus Refer to specimen collected on 01/24/2025 04:31 PM GRAM STAIN: Moderate Polymorphonuclear leukocytes Few Gram positive cocci [facility] Comment on above: Performed By: #### 2 4323-8, 3040-3, 5643-2 #### [facility] CLIA [id number] [address] [place] [address] [place] Bacteria identified Cx Nom (Wound) ORGANISM ID: 1 Few Staphylococcus aureus GRAM STAIN: Moderate Polymorphonuclear leukocytes Rare Gram positive cocci ORGANISM ID: 1 (STAPHYLOCOCCUS AUREUS) --- ANTIBIOTIC INTERPRETATION FAITH STATUS REFERENCE RANGE --- Oxacillin S <=0.25 F Susceptible <=2 , Intermediate >2 , Resistant >2 Oxacillin-susceptible staphylococci are susceptible to other penicilllinase-stable penicillins, beta-lactam/beta-lactamase inhibitor combinations, anti-staphylococcal cephems, and carbapenems. Gentamicin S <=2 F Susceptible <=4 , Intermediate >4 , Resistant >8 Erythromycin R >4 F Susceptible <=0.5 , Intermediate >.5 , Resistant >4 Clindamycin R <=0.5 F This isolate is presumed to be resistant based on detection of inducible Clindamycin resistance. Clindamycin may still be effective in some patients. Trimeth sulfameth S <=1 F Vancomycin S 1 F Susceptible <=2 , Intermediate >2 , Resistant >=16 Rifampin S <=0.5 F Susceptible <=1 , Intermediate >1 , Resistant >2 Rifampin should not be used alone for antimicrobial therapy. Doxycycline S <=0.5 F Susceptible <=4 , Intermediate >4 , Resistant >8 [facility] Comment on above: Performed By: #### 2 4323-8, 3040-3, 5643-2 #### [facility] CLIA [id number] [address] [place] [address] OF [facility] HISTORY PHYSICALon HISTORY PHYSICAL HNO ID: [id number] Author: SALVATORE MAIER MD Service: Orthopaedic Surgery Author Type: Physician Type: H&P Filed: 01/24/2025 15:53 Note Text: UPDATED HISTORY AND PHYSICAL EXAMINATION SERVICE DATE: 01/24/2025 SERVICE TIME: 3:53 PM PHYSICAL EXAM MUST BE COMPLETED ON ADMISSION The History and Physical (completed in the past 30 days) has been reviewed and the patient has been examined. The contents accurately reflect the patient's condition with the following additions or revisions since the HANDP was completed. Examination indicates no changes. This HANDP can be found in the Electronic Medical Record dated 01/20/25. Heart RRR Lungs NLB SIGNATURE: Salvatore Maier MD PATIENT NAME: David Munoz DATE: 01/24/2025 TIME: 3:53 PM [facility] OPERATIVE NOon 01-24-2025 OPERATIVE NO HNO ID: [id number] Author: SALVATORE MAIER MD Service: Orthopaedic Surgery Author Type: Physician Type: Operative Report Filed: 01/28/2025 13:24 Note Text: ORTHOPAEDIC OPERATIVE REPORT PATIENT NAME: David Munoz Surgery/Procedure Date: 01/24/2025 Incision/Procedure Start Time: 4:30 PM Incision Close/Procedure End Time: 5:04 PM Surgeon(s) and Tail Puller(s): Surgeons and Role: * Salvatore Maier MD - Primary Physician Tail Puller: Nayana Pires PA-C Shale Miner: Destinee Dempsey SA PRE-OPERATIVE DIAGNOSIS: Left elbow surgical site infection POST-OPERATIVE DIAGNOSIS: Left elbow surgical site infection SURGICAL PROCEDURE(S): Open excisional and incisional debridement left elbow surgical site infection down to bone and hardware, application incisional wound VAC Anesthesia: General Implantable Devices: None Complications: None Specimens: Culture swabs x 2 Estimated Blood Loss: 20 mls OPERATIVE INDICATIONS: Patient is a 34-year-old male who initially sustained a left proximal ulna fracture as well as a left radial head fracture and coronoid fracture after falling from scaffolding almost 6 weeks ago. His postoperative course was uneventful until approximately 10 days ago when he started to notice increased redness and drainage from his incision. I did evaluate him in office and placed him on oral antibiotics but he continued to have drainage. I discussed the risk of the above procedure with the patient including bleeding, infection, damage to surround structures, anesthetic complications, the patient elected to proceed. OPERATIVE PROCEDURE: The patient was met in the preoperative holding area where his left elbow was marked. A preoperative huddle was performed. He was taken the operative room suite and transferred to the operating room table in the supine position. He was succumbed to general anesthesia. His left arm was prepped and draped in standard fashion. All bony prominences were well-padded. A preoperative timeout was performed. I began by making a longitudinal incision centered over the previous incision. There was some thin yellow discharge which was coming from a small sinus tract in the middle aspect of the incision. After making incision, I was able to easily track down to the plate. Deep cultures were taken at this time and antibiotics were started. I then continued my dissection through fascia. The plate and screws were all intact and the fracture was stable. At this time, I used a curette and a rongeur to remove any old suture and debride any necrotic tissue. There was no gross purulence encountered. I did make sure that all loculations were open. Next, using Aricept and saline, I performed an irrigation debridement. Once I was happy with the amount of irrigated fluid, final hemostasis was obtained. I did closed the deep fascia with 0 Vicryl suture. Skin was closed with 2-0 Monocryl suture followed by interrupted 3-0 nylon suture. An incisional wound VAC was applied. The patient was awoken fromanesthesia and transferred to recovery in stable condition POST-OPERATIVE PLAN: - Infectious disease consult for antibiotic recommendations: Likely antibiotics for 6 weeks - Follow-up cultures - Nonweightbearing left upper extremity - Wound VAC for 7 days - Discharge home postoperative day 1 versus 2 I/primary surgeon/proceduralist performed the procedure with assistance. There were no qualified residents available to assist in the case. Nayana Pires PA-C was the airplane first officer. Under the supervision of the attending surgeon, she assisted during the entire operation and her involvement included: Positioning the patient, prepping the surgical site, draping the surgical field, retraction during the approach for optimal exposure, assistance during the critical steps of the procedure. SIGNATURE: Salvatore Maier MD DATE: January 24, 2025 TIME: 5:42 PM [facility] CNOVon 01-20-2025 CNOV Office Visit (ORMMMB ) DAVID MUNOZ ([id number]) 1990 M Date Time Provider Department 01/20/25 10:00 AM [facility] During your visit today, we recorded the following information about you: Pulse Weight Height 87/minute 90.3 kg 1.829 m Salvatore Maier MD 01/20/2025 11:23 AM Signed [facility] Operative Scheduling Details Diagnosis: (S52.022A) Olecranon fracture, left, closed, initial encounter (primary encounter diagnosis) Procedure: Incision and drainage left elbow postoperative wound infection OR Time Needed: 1 hours Location: [x] [facility] [] [facility] Equipment Request: Culture swabs, cystoscopy tubing, basic Ortho set [] Mini-C-arm [] Large C-arm Anesthesia: General Post op appointment: 2 weeks Inpatient stay: STO Pre Testing Needed: No Physical Therapy: No Time Frame for scheduling: Specific date: 01/24/25 to follow elective cases Salvatore Maier MD 01/20/2025 11:23 AM Signed Reason for Visit/Chief Complaint: Routine Post-Op Visit Date of Surgery: 12/13/24 Surgery Performed: ORIF ulnar fracture proximal end History of Present Illness: Patient presents for evaluation status post the above procedure. He is now 5 weeks out from surgery. He started to notice drainage from the posterior aspect of his incision last week. He states that it begins with purulent drainage and then becomes more serous. Over the past few days, he has started to notice some fevers and chills and a headache. I did speak with him on the phone yesterday and placed him on oral doxycycline. He states that his drainage has slowly began to improve since starting the antibiotics. His range of motion is improved from prior visit. Physical Exam Left elbow: Incision with multiple areas of purulent drainage. There is surrounding erythema and fluctuance extending down into the mid forearm. I am able to express purulent drainage from the incision. The patient has range of motion from 20 degrees short of full extension to 110 degrees of flexion. Imagin views left elbow personally reviewed demonstrating stable appearance of hardware with no acute abnormalities. There is interval callus formation Assessment: S/p above stated procedure, with postoperative wound infection Plan: 1) Pain control-Tylenol/ibuprofen 2) continue with oral doxycycline 3) I discussed treatment options with the patient. Appears he has a postoperative infection. Did discuss open incision and drainage with culture and postoperative admission for infectious disease consult. I will plan on retaining the hardware as his fracture is not fully healed yet. I discussed the risk including bleeding, recurrent infection, and he elected to proceed. Consent was obtained in office today. We will plan on surgery this week 4) Cmitli-githdjs-evkudzbh with nonweightbearing. Salvatore Maier MD 01/20/2025 11:22 AM Allergies As of Date: 01/20/2025 Noted Allergy Reaction AMOXICILLIN 09/28/2005 2 - Rash MORPHINE 01/20/2011 4 - Hives Date Reviewed: 01/20/2025 Reviewed by: Salvatore Maier MD - Fully Assessed Reason for Visit: Established Patient [175] Primary Visit Diagnosis:Olecranon fracture, left, closed, initial encounter [S52.022A] Other Visit Diagnosis:Wound infection after surgery [T81.49XA] Order(s):XR ELBOW GENERAL 2V AP/LAT LEFT [[id number]] Order #: [id number] FUTURE doxycycline (VIBRA-TABS) 100 mg tabletTake 1 tablet by mouth two times a day with meals for 10 days.Disp: 20 tabletRfl: 0 Prescriptions as of 01/20/2025 - doxycycline (VIBRA-TABS) 100 mg tablet Take 1 tablet by mouth two times a day with meals for 10 days. - predniSONE (DELTASONE) 10 mg tablet Take 1 tablet by mouth once daily. TID x 3 days, BID x 3 days, Daily x 3 days. - multivit-min/ferrous fumarate (MULTI VITAMIN ORAL) Take by mouth. - ibuprofen (MOTRIN IB) 200 mg tablet Take 200 mg by mouth every 6 hours as needed. - gabapentin (NEURONTIN) 300 mg capsule Take 1 capsule by mouth once daily for 5 doses. 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 Encounter Status:Closed by SALVATORE MAIER on 01/20/25 [facility] Leeann 01-20-2025 [facility] Telephone ([facility]) DAVID MUNOZ ([id number]) 1990 M Date Time Provider Department 01/20/25 SALVATORE MAIER During your visit today, we recorded the following information about you: Luisa Appiah LPN 01/20/2025 1:14 PM Signed Scheduled IANDD Lt elbow postoperative wound infection on 01/24/25 @ [facility]. POV is scheduled on 02/07/25 @ 8:45 am with [place]ao [facility] [place] Instructions and surgery guide were given to patient at today's office visit. All questions were answered at that time. Luisa Appiah LPN Allergies As of Date: 01/20/2025 Noted Allergy Reaction AMOXICILLIN 09/28/2005 2 - Rash MORPHINE 01/20/2011 4 - Hives Date Reviewed: 01/20/2025 Reviewed by: Salvatore Maier MD - Fully Assessed Reason for Visit: Preparations For Surgery [898] Prescriptions as of 01/20/2025 - doxycycline (VIBRA-TABS) 100 mg tablet Take 1 tablet by mouth two times a day with meals for 10 days. - predniSONE (DELTASONE) 10 mg tablet Take 1 tablet by mouth once daily. TID x 3 days, BID x 3 days, Daily x 3 days. - multivit-min/ferrous fumarate (MULTI VITAMIN ORAL) Take by mouth. - ibuprofen (MOTRIN IB) 200 mg tablet Take 200 mg by mouth every 6 hours as needed. - gabapentin (NEURONTIN) 300 mg capsule Take 1 capsule by mouth once daily for 5 doses. 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] 08/09/2006 PAIN LOW BACK [M54.50] 08/09/2006 JOINT PAIN-PELVIS [M25.559] 08/09/2006 Acute cholecystitis [K81.0] 01/15/2011 Overweight (BMI 25.0-29.9) [E66.3] 03/19/2014 Trauma [T14.90XA] 12/12/2024 Olecranon fracture, left, closed, initial encou*12/13/2024 Nondisplaced fracture of coronoid process of le*12/13/2024 Left radial head fracture [S52.122A] 12/13/2024 Encounter Status:Closed by LUISA APPIAH on 01/20/25 [facility] CNPN Telephone ([facility]) DAVID MUNOZ ([id number]) 1990 M Date Time Provider Department 01/20/25 SALVATORE MAIER [facility] During your visit today, we recorded the following information about you: Allergies As of Date: 01/20/2025 Noted Allergy Reaction AMOXICILLIN 09/28/2005 2 - Rash MORPHINE 01/20/2011 4 - Hives Date Reviewed: 01/20/2025 Reviewed by: Salvatore Maier MD - Fully Assessed Prescriptions as of 01/29/2025 - ibuprofen (MOTRIN) 800 mg tablet Take 1 tablet by mouth every 8 hours as needed for pain. - traMADol (ULTRAM) 50 mg tablet Take 1 tablet by mouth every 6 hours as needed for pain for up to 7 days. - doxycycline (VIBRA-TABS) 100 mg tablet Take 1 tablet by mouth two times a day with meals for 10 days. - predniSONE (DELTASONE) 10 mg tablet Take 1 tablet by mouth once daily. TID x 3 days, BID x 3 days, Daily x 3 days. - multivit-min/ferrous fumarate (MULTI VITAMIN ORAL) Take by mouth. - ibuprofen (MOTRIN IB) 200 mg tablet Take 200 mg by mouth every 6 hours as needed for pain. Last dose 01/22/25. - gabapentin (NEURONTIN) 300 mg capsule Take 1 capsule by mouth once daily for 5 doses. 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] 08/09/2006 PAIN LOW BACK [M54.50] 08/09/2006 JOINT PAIN-PELVIS [M25.559] 08/09/2006 Acute cholecystitis [K81.0] 01/15/2011 Overweight (BMI 25.0-29.9) [E66.3] 03/19/2014 Trauma [T14.90XA] 12/12/2024 Olecranon fracture, left, closed, initial encou*12/13/2024 Nondisplaced fracture of coronoid process of le*12/13/2024 Left radial head fracture [S52.122A] 12/13/2024 Encounter Status:Closed by LUISA APPIAH on 01/29/25 [facility] XR ELBOW 2V AP/LAT LTon 06- XR ELBOW 2V AP/LAT LT * * *Final Report* * * DATE OF EXAM: Jan 20 2025 9:28AM RHX 5322 - XR ELBOW 2V AP/LAT LT / PROCEDURE REASON: Olecranon fracture, left, closed, initial encounter * * * * Physician Interpretation * * * * XR ELBOW 2V AP/LAT LT Ordering Physician: SEDA BELLO Clinical Statement: Olecranon fracture, closed. Follow-up surgery. Comparison 01/06/2025 FINDINGS: Redemonstration of postoperative changes status post screw and plate fixation of olecranon fracture. There is increased sclerosis at the fracture site. Nondisplaced radial head fracture. There is soft tissue swelling around the elbow. No visible joint effusion. IMPRESSION: Redemonstration of postoperative changes status post olecranon fracture fixation. No hardware complication or change in alignment. Radial head fracture as shown previously. Soft tissue swelling. Photostat Operator Helper: PSCB Transcribe Date/Time: Jan 22 2025 6:16A Dictated by : SYLVIA KUMAR MD This examination was interpreted and the report reviewed and electronically signed by: SYLVIA KUMAR MD on Jan 22 2025 6:18AM EST [id number] [facility] DAVID [facility]UN[facility] ([id number]) 1990 M Date Time Provider Department 01/17/25 [facility]ATORE MAIER [facility] During your visit today, we recorded the following information about you: Dona Fairbanks MA 01/17/2025 10:13 AM Signed Pt reminded of appointment on 01/20/25 and to have xrays completed prior to the day of his appointment. Pt was given hours and locations to have this completed. Pt verbalized understanding of instructions. Dona Fairbanks MA January 17, 2025 10:13 AM Allergies As of Date: 01/17/2025 Noted Allergy Reaction AMOXICILLIN 09/28/2005 2 - Rash MORPHINE 01/20/2011 4 - Hives Date Reviewed: 01/06/2025 Reviewed by: Salvatore Maier MD - Fully Assessed Reason for Visit: Appointment [186] Cmt: Lanie remind for 01-20-25 Prescriptions as of 01/17/2025 - predniSONE (DELTASONE) 10 mg tablet Take 1 tablet by mouth once daily. TID x 3 days, BID x 3 days, Daily x 3 days. - multivit-min/ferrous fumarate (MULTI VITAMIN ORAL) Take by mouth. - ibuprofen (MOTRIN IB) 200 mg tablet Take 200 mg by mouth every 6 hours as needed. - gabapentin (NEURONTIN) 300 mg capsule Take 1 capsule by mouth once daily for 5 doses. 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] 08/09/2006 PAIN LOW BACK [M54.50] 08/09/2006 JOINT PAIN-PELVIS [M25.559] 08/09/2006 Acute cholecystitis [K81.0] 01/15/2011 Overweight (BMI 25.0-29.9) [E66.3] 03/19/2014 Trauma [T14.90XA] 12/12/2024 Olecranon fracture, left, closed, initial encou*12/13/2024 Nondisplaced fracture of coronoid process of le*12/13/2024 Left radial head fracture [S52.122A] 12/13/2024 Encounter Status:Closed by DONA FAIRBANKS on 01/17/25 [facility] Leeann 01-07-2025 CNPN Telephone ([facility]) DAVID MUNOZ ([id number]) 1990 M Date Time Provider Department 01/07/25 SALVATORE MAIER [facility] During your visit today, we recorded the following information about you: Alexandra Andino LPN 01/07/2025 1:22 PM Signed Pt called in stating you discussed prescribing a steroid with him yesterday at his appt and nothing was sent in. Were you still planning on prescribing this? He would like it sent to the [facility]. Alexandra Andino LPN January 07, 2025 1:21 PM Alexandra Andino LPN 01/07/2025 3:23 PM Signed No worries! Pt notified. Thank you! Allergies As of Date: 01/07/2025 Noted Allergy Reaction AMOXICILLIN 09/28/2005 2 - Rash MORPHINE 01/20/2011 4 - Hives Date Reviewed: 01/06/2025 Reviewed by: Salvatore Maier MD - Fully Assessed Reason for Visit: Patient Question [7842] Cmt: Steroid Prescriptions as of 01/07/2025 - predniSONE (DELTASONE) 10 mg tablet Take 1 tablet by mouth once daily. TID x 3 days, BID x 3 days, Daily x 3 days. - multivit-min/ferrous fumarate (MULTI VITAMIN ORAL) Take by mouth. - ibuprofen (MOTRIN IB) 200 mg tablet Take 200 mg by mouth every 6 hours as needed. - gabapentin (NEURONTIN) 300 mg capsule Take 1 capsule by mouth once daily for 5 doses. 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] 08/09/2006 PAIN LOW BACK [M54.50] 08/09/2006 JOINT PAIN-PELVIS [M25.559] 08/09/2006 Acute cholecystitis [K81.0] 01/15/2011 Overweight (BMI 25.0-29.9) [E66.3] 03/19/2014 Trauma [T14.90XA] 12/12/2024 Olecranon fracture, left, closed, initial encou*12/13/2024 Nondisplaced fracture of coronoid process of le*12/13/2024 Left radial head fracture [S52.122A] 12/13/2024 Encounter Status:Closed by ALEXANDRA ANDINO on 01/07/25 [facility] CNOVon 01-06-2025 CN Office Visit (ORMB ) DAVID MUNOZ ([id number]) 1990 M Date Time Provider Department 01/06/25 11:15 AM SALVATORE MAIER [facility] During your visit today, we recorded the following information about you: Pulse Weight Height 82/minute 90.3 kg 1.829 m Salvatore Maier MD 01/06/2025 12:04 PM Signed Reason for Visit/Chief Complaint: Routine Post-Op Visit Date of Surgery: 12/13/24 Surgery Performed: ORIF ulnar fracture proximal end History of Present Illness: Patient presents 3 weeks status post the above procedure. He states that he felt a pop a few days ago and had some increased pain over his triceps region. He has been wearing his hinged elbow brace and been compliant with nonweightbearing. He has been trying to do range of motion exercises on his own. Physical Exam Left elbow: Incision healing well with no signs of erythema or drainage. Range of motion 30 degrees short of full extension to 80 degrees of flexion. His triceps appears intact and he does have strength with resisted elbow extension Imagin views left elbow personally reviewed demonstrating stable appearance of hardware with no acute abnormalities. Assessment: S/p above stated procedure, doing well Plan: 1) Pain control- Continue pain medications as prescribed. Risks of medications discussed 2) PT-okay to start physical therapy. Order placed today. 3) Immobilization-hinged elbow brace. Range of motion unlimited. 4) Weight-bearing- NWB 5) Follow-up- Patient to follow up in 2 weeks. Salvatore Maier MD 01/06/2025 12:03 PM Salvatore Maier MD 01/07/2025 1:26 PM Signed Addended by: SALVATORE MAIER on: 01/07/2025 01:26 PM Modules accepted: Orders Salvatore Maier MD 01/07/2025 1:27 PM Signed Addended by: SALVATORE MAIER on: 01/07/2025 01:27 PM Modules accepted: Orders Referring Provider: SALVATORE MAIER [[id number]] Allergies As of Date: 01/06/2025 Noted Allergy Reaction AMOXICILLIN 09/28/2005 2 - Rash MORPHINE 01/20/2011 4 - Hives Date Reviewed: 01/06/2025 Reviewed by: Salvatore Maier MD - Fully Assessed Reason for Visit: Post Op [174] Primary Visit Diagnosis:Olecranon fracture, left, closed, initial encounter [S52.022A] Order(s):XR ELBOW GENERAL 2V AP/LAT LEFT [[id number]] Order #: [id number] FUTURE CONSULT TO PHYSICAL THERAPY [9032] Order #: [id number]: 1 FUTURE predniSONE (DELTASONE) 10 mg tabletTake 1 tablet by mouth once daily. TID x 3 days, BID x 3 days, Daily x 3 days.Disp: 18 tabletRfl: 0 Prescriptions as of 01/07/2025 - predniSONE (DELTASONE) 10 mg tablet Take 1 tablet by mouth once daily. TID x 3 days, BID x 3 days, Daily x 3 days. - multivit-min/ferrous fumarate (MULTI VITAMIN ORAL) Take by mouth. - ibuprofen (MOTRIN IB) 200 mg tablet Take 200 mg by mouth every 6 hours as needed. - gabapentin (NEURONTIN) 300 mg capsule Take 1 capsule by mouth once daily for 5 doses. 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 TID x 3 days, BID x 3 days, Daily x 3 days. PREDNISONE 10 MG TABLET 21 t* 0 01/07/2025 01/07/2025 Route: ORAL Sig: Take 1 tablet by mouth once daily. TID x 3 days, BID x 3 days, Daily x 3 days. PREDNISONE 10 MG TABLET 18 t* 0 01/07/2025 Route: ORAL Sig: Take 1 tablet by mouth once daily. TID x 3 days, BID x 3 days, Daily x 3 days. Medications Discontinued During This Encounter Prescriptions - predniSONE (DELTASONE) 10 mg tablet (Discontinued) Take 1 tablet by mouth once daily. TID x 3 days, BID x 3 days, Daily x 3 days. - predniSONE (DELTASONE) 10 mg tablet (Discontinued) Take 1 tablet by mouth once daily. TID x 3 days, BID x 3 days, Daily x 3 days. Disposition: Return in about 2 weeks (around 01/20/2025). Follow-up and Disposition History for Encounter Date Provider Department Center 01/06/2025 [id number]-UTNESALVATORE MAIER [facility] Mitch Souza [facility] Encounter Status:Closed by SALVATORE MAIER on 01/06/25 [facility] XR ELBOW 2V AP/LAT LTon 05- XR ELBOW 2V AP/LAT LT * * *Final Report* * * DATE OF EXAM: Jan 06 2025 9:48AM RHX 5322 - XR ELBOW 2V AP/LAT LT / PROCEDURE REASON: Olecranon fracture, left, closed, initial encounter * * * * Physician Interpretation * * * * XR ELBOW 2V AP/LAT LT Ordering Physician: SEDA BELLO Clinical Statement: Olecranon fracture. Comparison 12/23/2024 FINDINGS: Redemonstration of screw and plate fixation of olecranon fracture. The hardware is intact and similarly positioned. Essentially nondisplaced fracture of the radial head. No change in alignment. Joint effusion and soft tissue swelling. Interval removal of skin александр. IMPRESSION: No hardware complication status post screw and plate fixation olecranon fracture. No change in alignment. Redemonstration of radial head fracture. Soft tissue swelling and joint effusion. Photostat Operator Helper: CHRISTINE Transcribe Date/Time: Jan 08 2025 6:24A Dictated by : SYLVIA KUMAR MD This examination was interpreted and the report reviewed and electronically signed by: SYLVIA KUMAR MD on Jan 08 2025 6:26AM EST [id number] [facility] 01-02-2025 [facility] DAVID [facility]UN[facility] ([id number]) 1990 M IPA Date Time Provider Department 01/02/25 SALVATORE MAIER [facility] During your visit today, we recorded the following information about you: Dona Fairbanks MA 01/02/2025 2:33 PM Signed Pt reminded of appointment on 01/06/25 and to have xrays completed prior to the day of his appointment. Pt was given hours and locations to have this completed. Pt verbalized understanding of instructions. Dona Fairbanks MA January 02, 2025 2:33 PM Allergies As of Date: 01/02/2025 Noted Allergy Reaction AMOXICILLIN 09/28/2005 2 - Rash MORPHINE 01/20/2011 4 - Hives Date Reviewed: 12/23/2024 Reviewed by: Salvatore Maier MD - Fully Assessed Reason for Visit: Appointment [186] Cmt: Xray remind for 5--25 Prescriptions as of 01/02/2025 - multivit-min/ferrous fumarate (MULTI VITAMIN ORAL) Take by mouth. - ibuprofen (MOTRIN IB) 200 mg tablet Take 200 mg by mouth every 6 hours as needed. - gabapentin (NEURONTIN) 300 mg capsule Take 1 capsule by mouth once daily for 5 doses. 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] 08/09/2006 PAIN LOW BACK [M54.50] 08/09/2006 JOINT PAIN-PELVIS [M25.559] 08/09/2006 Acute cholecystitis [K81.0] 01/15/2011 Overweight (BMI 25.0-29.9) [E66.3] 03/19/2014 Trauma [T14.90XA] 12/12/2024 Olecranon fracture, left, closed, initial encou*12/13/2024 Nondisplaced fracture of coronoid process of le*12/13/2024 Left radial head fracture [S52.122A] 12/13/2024 Encounter Status:Closed by DONA FAIRBANKS on 01/02/25 [facility] CNOVon 12-23-2024 CNOV Office Visit ([facility] ) DAVID MUNOZ ([id number]) 1990 M Date Time Provider Department 12/23/24 10:00 AM SALVATORE MAIER [facility] During your visit today, we recorded the following information about you: Pulse Weight Height 88/minute 90.3 kg 1.829 m Savlatore Maier MD 12/23/2024 1:03 PM Signed Reason for Visit/Chief Complaint: Routine Post-Op Visit Date of Surgery: 12/13/24 Surgery Performed: ORIF ulnar fracture proximal end History of Present Illness: Patient is status post above-stated procedure. Overall doing well. Denies any sensorimotor changes or wound issues. Pain controlled. Patient is compliant with sling. No other complaints at this time Physical Exam Left elbow: Splint removed. Александр removed. Painless range of motion 20 to 90 degrees. No erythema or drainage. Sensation intact to light touch over the radial, median, ulnar nerve distribution. 2+ radial pulse. Imagin views left elbow personally reviewed demonstrating stable appearance of hardware with no acute abnormalities. Assessment: S/p above stated procedure, doing well Plan: 1) Pain control- Continue pain medications as prescribed. Risks of medications discussed 2) PT- None at this time per our instruction. 3) Immobilization-hinged elbow brace applied. Range of motion from 30 to 90 degrees. 4) Weight-bearing- NWB 5) Follow-up- Patient to follow up in 2 weeks. Salvatore Maier MD 12/23/2024 1:03 PM Dona Fairbanks MA 12/23/2024 1:03 PM Signed ACT ROM left arm brace applied to arm/elbow after gauze and coban were applied per instruction by provider. Pt tolerated well. Care instruction and education were given at this time with verbal understanding from the patient. Pt had no further questions at this time. Dona Fairbanks MA Referring Provider: SALVATORE MAIER [[id number]] Allergies As of Date: 12/23/2024 Noted Allergy Reaction AMOXICILLIN 09/28/2005 2 - Rash MORPHINE 01/20/2011 4 - Hives Date Reviewed: 12/23/2024 Reviewed by: Salvatore Maier MD - Fully Assessed Reason for Visit: Post Op [174] Primary Visit Diagnosis:Olecranon fracture, left, closed, initial encounter [S52.022A] Order(s):XR ELBOW GENERAL 2V AP/LAT LEFT [[id number]] Order #: [id number] FUTURE Prescriptions as of 12/23/2024 - multivit-min/ferrous fumarate (MULTI VITAMIN ORAL) Take by mouth. - ibuprofen (MOTRIN IB) 200 mg tablet Take 200 mg by mouth every 6 hours as needed. - gabapentin (NEURONTIN) 300 mg capsule Take 1 capsule by mouth once daily for 5 doses. 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 Follow-up and Disposition History for Encounter Date Provider Department Center 12/23/2024 [id number]-RLADSALVATORE MAIER Md [facility] Encounter Status:Closed by SALVATORE MAIER on 12/23/24 [facility] XR ELBOW 2V AP/LAT LTon 05-0 XR ELBOW 2V AP/LAT LT * * *Final Report* * * DATE OF EXAM: Dec 23 2024 9:32AM RHX 5322 - XR ELBOW 2V AP/LAT LT / PROCEDURE REASON: Olecranon fracture, left, closed, initial encounter * * * * Physician Interpretation * * * * LEFT ELBOW 3 VIEWS: Clinical Statement: Olecranon fracture, left, closed, initial encounter. Comparison: Left elbow 12/12/2024. Result: There are postsurgical changes with plate fixation of the olecranon fracture with a vertical row of skin александр posteriorly. There is good alignment at the fracture site with residual fracture lucencies visible extending to the articular surface on the lateral view. Longitudinal fracture again shown through the anterior margin of the radial head extending into the neck with anatomic alignment. The joint spaces are maintained. No new fracture identified. There is residual posterior soft tissue swelling which appears improved. IMPRESSION: See result. Photostat Operator Helper: CHRISTINE Transcribe Date/Time: Dec 25 2024 11:21A Dictated by : TOÑO GRANT MD This examination was interpreted and the report reviewed and electronically signed by: TOÑO GRANT MD on Dec 25 2024 11:25AM EST [id number] [facility] DAVID MUNOZ ([id number]) 1990 M Date Time Provider Department 12/20/24 SALVATORE MAIER [facility] During your visit today, we recorded the following information about you: Dona Fairbanks MA 12/20/2024 12:27 PM Signed Pt reminded of appointment on +12/23/24 and to have xrays completed prior to the day of his appointment. Pt was given hours and locations to have this completed. Pt verbalized understanding of instructions. Dona Fairbanks MA December 20, 2024 12:27 PM Allergies As of Date: 12/20/2024 Noted Allergy Reaction AMOXICILLIN 09/28/2005 2 - Rash MORPHINE 01/20/2011 4 - Hives Date Reviewed: 12/14/2024 Reviewed by: Ced Levy, JORDAN - Fully Assessed Reason for Visit: Appointment [186] Cmt: Xray remind Prescriptions as of 12/20/2024 - gabapentin (NEURONTIN) 300 mg capsule Take 1 capsule by mouth once daily for 5 doses. - senna-docusate (SENNA-S) 8.6-50 mg per tablet Take 1 tablet by mouth once daily. Problem List As Of Date 12/20/2024 Noted Resolved CHONDROMALACIA PATELLAE [M22.40] 08/09/2006 PAIN LOW BACK [M54.50] 08/09/2006 JOINT PAIN-PELVIS [M25.559] 08/09/2006 Acute cholecystitis [K81.0] 01/15/2011 Overweight (BMI 25.0-29.9) [E66.3] 03/19/2014 Trauma [T14.90XA] 12/12/2024 Olecranon fracture, left, closed, initial encou*12/13/2024 Nondisplaced fracture of coronoid process of le*12/13/2024 Left radial head fracture [S52.122A] 12/13/2024 Encounter Status:Closed [facility] [employer] [facility] ([employer]) DAVID MUNOZ ([id number]) 1990 M Date Time Provider Department 12/16/24 SALVATORE MAIER [facility] During your visit today, we recorded the following information about you: Mary Rose 12/16/2024 9:38 AM Signed Called patient and scheduled postop appointment with Dr. Salvatore Maier on 12/23/24 at 10:00 a.m. in [address] of [address] Medical Office Building at [facility]. Patient given detailed parking/location directions. Mailed appointment reminder to patient as well. Patient given office number if he needs to contact us. Allergies As of Date: 12/16/2024 Noted Allergy Reaction AMOXICILLIN 09/28/2005 2 - Rash MORPHINE 01/20/2011 4 - Hives Date Reviewed: 12/14/2024 Reviewed by: Ced Levy, RN - Fully Assessed Reason for Visit: Appointment [186] Cmt: SCHEDULE POSTOP APPOINTMENT WITH DR. MAIER Prescriptions as of 12/16/2024 - gabapentin (NEURONTIN) 300 mg capsule Take 1 capsule by mouth once daily for 5 doses. - oxyCODONE IR (ROXICODONE) 5 mg immediate release tablet Take 1 tablet by mouth every 6 hours as needed for up to 3 days. - senna-docusate (SENNA-S) 8.6-50 mg per tablet Take 1 tablet by mouth once daily. 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 HNO ID: [id number] Author: BARRINGTON CMAPOS MD Service: General Surgery Author Type: Physician Type: Discharge Summary Filed: 12/14/2024 08:32 Note Text: DISCHARGE NOTE (Patient Admitted Less than 48 Hours) SERVICE DATE: 12/14/2024 SERVICE TIME: 8:30 AM ADMISSION DATE: 12/12/2024 DISCHARGE DISPOSITION: Home with Self Care Discharge Physical Exam: VITAL SIGNS: BP 121/59 Pulse 74 Temp 36.8 ?C (98.2 ?F) (Oral) Resp 16 Ht 182.9 cm (6') Wt 90.7 kg (199 lb 15.3 oz) SpO2 99% BMI 27.12 kg/m? GENERAL: Alert, no distress, cooperative SKIN: Skin color, texture, turgor normal. No rashes or lesions. LUNGS: No respiratory distress on room air ABDOMEN: Soft, nontender EXTREMITIES: Left upper extremity dressing clean dry and intact, left hand range of motion intact NEURO: Gait normal. Reflexes normal and symmetric. Sensation grossly intact, Cranial nerves II-XII intact DIET: Regular ACTIVITY AFTER DISCHARGE: Nonweightbearing left upper extremity FOLLOW UP CARE REQUIRED: Follow-up with orthopedic surgery DISCHARGE MEDICATIONS: Medication List START taking these medications gabapentin 300 mg capsule Commonly known as: NEURONTIN Take 1 capsule by mouth once daily for 5 doses. oxyCODONE IR 5 mg immediate release tablet Commonly known as: ROXICODONE Take 1 tablet by mouth every 6 hours as needed for up to 3 days. senna-docusate 8.6-50 mg per tablet Commonly known as: SENNA-S Take 1 tablet by mouth once daily. Where to Get Your Medications These medications were sent to [facility] [address] [place] [id number] - [address] [place] [address] - [phone] [place] [address] gabapentin 300 mg capsule oxyCODONE IR 5 mg immediate release tablet senna-docusate 8.6-50 mg per tablet FINAL DIAGNOSIS: ACTIVE PROBLEM LIST Chondromalacia of Patella PAIN LOW BACK Pain in Joint, Pelvic Region and Thigh Acute Cholecystitis Overweight (Bmi 25.0-29.9) Trauma Olecranon Fracture, Left, Closed, Initial Encounter Nondisplaced Fracture of Coronoid Process of Left Ulna, Initial Encounter for Closed Fracture Left Radial Head Fracture Plan of care discussed with Provider, RN, Patient SIGNATURE: Barrington Campos MD PATIENT NAME: David Munoz DATE: December 14, 2024 TIME: 8:30 AM [facility] ANES POSTPROC EVALon 025 ANES POSTPROC EVAL HNO ID: [id number] Author: MICHAEL LEWIS DO Service: ? Author Type: Anesthesiologist Type: Anesthesia Postprocedure Evaluation Filed: 12/13/2024 15:12 Note Text: POST ANESTHESIA EVALUATION NOTE : 1990 Procedure Summary Date: 12/13/24 Room / Location: MR OR 01 / MR OR Anesthesia Start: 1143 Anesthesia Stop: 1446 Procedure: OPEN REDUCTION ULNAR FRACTURE PROXIMAL END W/ INTERNAL FIXATION WHEN PREFORMED (Left: Elbow) Diagnosis: Closed fracture of olecranon process of left ulna, initial encounter (Closed fracture of olecranon process of left ulna, initial encounter [S52.022A]) Surgeons: Salvatore Maier MD Responsible Provider: Michael Lewis DO Anesthesia Type: general ASA Status: 2 Anesthesia Type: general Airway Type: ETT Last Vitals Vitals Value Taken Time BP 115/66 12/13/24 1500 Temp 36.6 ?C (97.9 ?F) 12/13/24 1457 Pulse 53 12/13/24 1510 Resp 12 12/13/24 1457 SpO2 99 % 12/13/24 1510 Vitals shown include unfiled device data. Post Anesthesia Patient Status Patient Evaluation: PACU. PACU/ICU Patient Condition: stable. Anticipated Disposition: inpatient floor planned admission. Neurological Status: aware and responsive. Pulmonary Status: breathing comfortably on room air Airway Control: returned to baseline unsupported. Cardiovascular Status: stable. Pain Management: clinically adequate Postoperative Hydration: acceptable. Intraoperative Events: no significant anesthesia events Post Operative Nausea/Vomiting Status: no significant post operative nausea or vomiting Recommendation: continue current plan of care. Anesthesia Observations No Documentation SIGNATURE: Michael Lewis DO PATIENT NAME: David Munoz DATE: December 13, 2024 TIME: 3:12 PM CSN: [id number] [facility] ANES PRE-OPon 12-13-2024 ANES PRE-OP HNO ID: [id number] Author: MICHAEL LEWIS DO Service: ? Author Type: Anesthesiologist Type: Anesthesia Preprocedure Evaluation Filed: 12/13/2024 10:43 Note Text: ANESTHESIOLOGY DAY OF SURGERY NOTE : 1990 Procedure Information Date/Time: 12/13/24 1130 Procedure: OPEN REDUCTION ULNAR FRACTURE PROXIMAL END W/ INTERNAL FIXATION WHEN PREFORMED (Left: Elbow) Location: MR OR 01 / OR Surgeons: Salvatore Maier MD Estimated body mass index is 27.12 kg/m? as calculated from the following: Height as of this encounter: 182.9 cm (6'). Weight as of this encounter: 90.7 kg (199 lb 15.3 oz). Most recent hematocrit and potassium results: Hematocrit 41.3 12/13/2024 Potassium 4.2 12/13/2024 Relevant Problems No relevant active problems I - PHYSICAL EVALUATION AIRWAY Patient intubated: No. Tracheostomy tube not present Mallampati: II. TM distance: <3 FB. Neck ROM: full ROM without neurological symptoms. Mouth opening: adequate. Short neck: no. Thick neck: no Additional exam findings: no II - ANESTHESIA PLAN ASA Score: 2 Anesthetic Plan: general Airway type: ETT The patient is not a current smoker. NPO Status: adequate Beta Alex Administration of chronic beta alex medication planned. Monitoring Plan Post Procedure Analgesic Plan Informed Consent Anesthetic risks, benefits, alternatives, personnel and consent discussed: yes. Patient / Responsible Republican agrees to proceed: yes Patient / Surrogate agrees to blood products: Yes DNR status not reviewed with patient and/or family prior to surgery. Significant changes in the patient condition since the History and Physical, not otherwise documented in primary service progress note: no. No vitals data found for the desired time range. Facility-Administered Medications as of 12/13/2024 Medication Dose Route Frequency senna-docusate 8.6-50 mg 1 tablet (SENNA-S) 1 tablet ORAL BID iv contrast (radiology procedure) INTRAVENOUS DIRECTED PRN iv contrast (radiology procedure) INTRAVENOUS DIRECTED PRN [COMPLETED] acetaminophen 1,000 mg tab(s) (TYLENOL) 1,000 mg ORAL ONCE [COMPLETED] oxyCODONE IR 5 mg tab(s) (ROXICODONE) 5 mg ORAL ONCE NaCl 0.9% iv flush bag 20 mL INTRAVENOUS PRN [COMPLETED] HYDROmorphone (PF) 0.5 mg injection (DILAUDID) 0.5 mg INTRAVENOUS ONCE [COMPLETED] ondansetron (PF) 4 mg injection (ZOFRAN) 4 mg INTRAVENOUS ONCE lactated ringers iv infusion 100 mL/hr INTRAVENOUS CONTINUOUS acetaminophen 1,000 mg tab(s) (TYLENOL) 1,000 mg ORAL q 6 H keTORolac 15 mg injection (Toradol) 15 mg INTRAVENOUS q 6 H methocarbamol 1,000 mg tab(s) (ROBAXIN) 1,000 mg ORAL QID gabapentin 300 mg cap(s) (NEURONTIN) 300 mg ORAL DAILY ondansetron (PF) 4 mg injection (ZOFRAN) 4 mg INTRAVENOUS q 6 H PRN lidocaine 4 % 1 patch (SALONPAS) 1 patch TRANSDERMAL DAILY [COMPLETED] ondansetron (PF) 4 mg injection (ZOFRAN) 4 mg INTRAVENOUS ONCE prochlorperazine 10 mg tab(s) (COMPAZINE) 10 mg ORAL q 6 H PRN lidocaine patch - REMOVE OTHER AT BEDTIME And lidocaine - VERIFY PATCH OTHER q 8 H No current outpatient medications on file as of 12/13/2024. I have interviewed and examined the patient. I have reviewed the medical record and/or the pre-anesthesia evaluation, pertinent labs, and test results. This contains updated information obtained within 48 hours of Surgery/Procedure. SIGNATURE: Michael Lewis DO PATIENT NAME: David Munoz DATE: December 13, 2024 TIME: 10:42 AM CSN: [id number] Normal [facility] Basic metabolic 2000 panelon 12-13-2024 Anion gap [Moles/Vol] 5 mmol/L Normal 5-16 [facility] Comment on above: Order Comment: Speci men Type: BLOOD SPECIMEN Ordering Facility: [facility] Address: [address] [place] [address] Performed By: #### L [id number], TSCR #### [facility] CLIA [id number] [address] [place] [address] [place] Calcium [Mass/Vol] 9.3 mg/dL Normal 8.5-10.5 [facility] Comment on above: Order Comment: Speci men Type: BLOOD SPECIMEN Ordering Facility: [facility] Address: [address] [place] [address] Performed By: #### L [id number], TSCR #### [facility] CLIA [id number] [address] [place] [address] [place] Chloride [Moles/Vol] 105 mmol/L Normal 98-107 [facility] Comment on above: Order Comment: Speci men Type: BLOOD SPECIMEN Ordering Facility: [facility] Address: [address] [place] [address] Performed By: #### L [id number], TSCR #### [facility] CLIA [id number] [address] [place] [address] [place] CO2 [Moles/Vol] 26 mmol/L Normal 21-32 [facility] Comment on above: Order Comment: Speci men Type: BLOOD SPECIMEN Ordering Facility: [facility] Address: [address] [place], [place] [id number] Performed By: #### L [id number], TSCR #### [facility] CLIA [id number] [address] [place] [address] [place] Creatinine [Mass/Vol] 0.97 mg/dL Normal 0.50-1.40 [facility] Comment on above: Order Comment: Specran oshea Type: BLOOD SPECIMEN Ordering Facility: [facility] Address: [address] [place] [address] Result Comment: Rose Marie ents receiving either N-Acetylcysteine (NAC) or Metamizole prior to venipuncture, may have falsely depressed results. Performed By: #### L [id number], TSCR #### [facility] CLIA [id number] [address] [place] [address] Creatinine and Glomerular filtration rate.predicted panel (S/P/Bld) 105 mL/min/1.73m??? Normal >=60 [facility] Comment on above: Order Comment: Oziel oshea Type: BLOOD SPECIMEN Ordering Facility: [facility] Address: [address] [place] [address] Result Comment: Nayeli mated Glomerular Filtration Rate (eGFR) is calculated using the 2020 CKD-EPI creatinine equation. This equation utilizes serum creatinine, sex, and age as parameters. The creatinine assay has traceable calibration to isotope dilution-mass spectrometry. Refer to KDIGO guidelines for clinical interpretation. In patients with unstable renal function, e.g. those with acute kidney injury, the eGFR may not accurately reflect actual GFR. Performed By: #### L [id number], TSCR #### [facility] CLIA [id number] [address] [place] [address] [place] Glucose [Mass/Vol] 103 mg/dL High 70-100 [facility] Comment on above: Order Comment: Oziel oshea Type: BLOOD SPECIMEN Ordering Facility: [facility] Address: [address] [place] [address] Result Comment: The [place] [employer] (ADA) provides guidance for cutoff values for fasting glucose and random glucose. The ADA defines fasting as no caloric intake for at least 8 hours. Fasting plasma glucose results between 100 to 125 mg/dL indicate increased risk for diabetes (prediabetes). Fasting plasma glucose results greater than or equal to 126 mg/dL meet the criteria for diagnosis of diabetes. In the absence of unequivocal hyperglycemia, results should be confirmed by repeat testing. In a patient with classic symptoms of hyperglycemia or hyperglycemic crisis, random plasma glucose results greater than or equal to 200 mg/dL meet the criteria for diagnosis of diabetes. Reference: Standards of Medical Care in Diabetes 2016, [place] [employer]. Diabetes Care. 2016.39(Suppl 1). Results may be falsely elevated after the administration of Sulfapyridine. Results may be falsely depressed after the administration of Sulfasalazine. Performed By: #### L [id number], TSCR #### [facility] CLIA [id number] [address] [place] [address] [place] Potassium [Moles/Vol] 4.2 mmol/L Normal 3.5-5.1 [facility] Comment on above: Order Comment: Oziel oshea Type: BLOOD SPECIMEN Ordering Facility: [facility] Address: [address] [place] [address] Performed By: #### L [id number], TSCR #### [facility] CLIA [id number] [address] [place] [address] [place] Sodium [Moles/Vol] 136 mmol/L Normal 136-145 [facility] Comment on above: Order Comment: Oziel oshea Type: BLOOD SPECIMEN Ordering Facility: [facility] Address: [address] [place] [address] Performed By: #### L [id number], TSCR #### [facility] CLIA [id number] [address] [place] [address] [place] Urea nitrogen [Mass/Vol] 18 mg/dL Normal 7-26 [facility] Comment on above: Order Comment: Oziel oshea Type: BLOOD SPECIMEN Ordering Facility: [facility] Address: [address] [place] [address] Performed By: #### L [id number], TSCR #### [facility] CLIA [id number] [address] [place] [address] [place] CBC panel Auto (Bld)on 12-13 Erythrocyte distribution width (RBC) [Ratio] 12.1 % Normal 11.5-15.0 [facility] Comment on above: Order Comment: Speci men Type: BLOOD SPECIMEN Ordering Facility: [facility] Address: [address] [place] [address] Performed By: #### L [id number], TSCR #### [facility] CLIA [id number] [address] [place] [address] Hematocrit (Bld) [Volume fraction] 41.3 % Normal 39.0-51.0 [facility] Comment on above: Order Comment: Speci men Type: BLOOD SPECIMEN Ordering Facility: [facility] Address: [address] [place] [address] Performed By: #### L [id number], TSCR #### [facility] CLIA [id number] [address] [place] [address] Hemoglobin (Bld) [Mass/Vol] 14.6 g/dL Normal 13.0-17.0 [facility] Comment on above: Order Comment: Speci men Type: BLOOD SPECIMEN Ordering Facility: [facility] Address: [address] [place] [address] Performed By: #### L [id number], TSCR #### [facility] CLIA [id number] [address] [place] [address] MCH (RBC) [Entitic mass] 32.3 pg Normal 26.0-34.0 [facility] Comment on above: Order Comment: Speci men Type: BLOOD SPECIMEN Ordering Facility: [facility] Address: [address] [place] [address] Performed By: #### L [id number], TSCR #### [facility] CLIA [id number] [address] [place] [address] STATES [place] [facility] MCHC (RBC) [Mass/Vol] 35.4 g/dL Normal 30.5-36.0 [facility] Comment on above: Order Comment: Speci men Type: BLOOD SPECIMEN Ordering Facility: [facility] Address: [address] [place] [address] Performed By: #### L [id number], TSCR #### [facility] CLIA [id number] [address] [place] [address] [place] MCV (RBC) [Entitic vol] 91.4 fL Normal 80.0-100.0 [facility] Comment on above: Order Comment: Speci men Type: BLOOD SPECIMEN Ordering Facility: [facility] Address: [address] [place] [address] Performed By: #### L [id number], TSCR #### [facility] CLIA [id number] [address] [place] [address] [place] Nucleated RBC (Bld) [#/Vol] 10*3/uL Normal <0.01 [facility] Comment on above: Order Comment: Speci men Type: BLOOD SPECIMEN Ordering Facility: [facility] Address: [address] [place] [address] Performed By: #### L [id number], TSCR #### [facility] CLIA [id number] [address] [place] [address] [place] Platelet mean volume (Bld) [Entitic vol] 12.3 fL Normal 9.0-12.7 [facility] Comment on above: Order Comment: Speci men Type: BLOOD SPECIMEN Ordering Facility: [facility] Address: [address] [place] [address] Performed By: #### L [id number], TSCR #### [facility] CLIA [id number] [address] [place] [address] [place] Platelets (Bld) [#/Vol] 210 10*3/uL Normal 150-400 [facility] Comment on above: Order Comment: Speci men Type: BLOOD SPECIMEN Ordering Facility: [facility] Address: [address] [place] [address] Performed By: #### L [id number], TSCR #### [facility] CLIA [id number] [address] [place] [address] [place] RBC (Bld) [#/Vol] 4.52 10*6/uL Normal 4.20-6.00 [facility] Comment on above: Order Comment: Speci men Type: BLOOD SPECIMEN Ordering Facility: [facility] Address: [address] [place] [address] Performed By: #### L [id number], TSCR #### [facility] CLIA [id number] [address] [place] [address] WBC (Bld) [#/Vol] 7.40 10*3/uL Normal 3.70-11.00 [facility] Comment on above: Order Comment: Speci men Type: BLOOD SPECIMEN Ordering Facility: [facility] Address: [address] [place] [address] Performed By: #### L [id number], TSCR #### [facility] CLIA [id number] [address] [place] [address] CONSULTon 12-13-2024 CONSULT HNO ID: [id number] Author: SALVATORE MAIER MD Service: Orthopaedic Surgery Author Type: Physician Type: Consults Filed: 12/13/2024 15:44 Note Text: ORTHOPAEDIC SURGERY CONSULT Pt: DAVID MUNOZ Date of consultation: 12/13/2024 Consulting Physician: Salvatore Maier MD Reason for consultation: Left elbow injury HPI: 34 year old male presenting today after falling off scaffolding onto his left elbow. He presented to the emergency department as a trauma and was found to have a comminuted displaced olecranon fracture with a nondisplaced comminuted radial head fracture and a coronoid fracture. the patient was mated to the trauma service and orthopedic surgery was consulted. He is right-hand dominant. Denies any prior history of left elbow issues. Denies any numbness or tingling. PAST MEDICAL HISTORY Diagnosis Date Pure hypercholesterolemia PAST SURGICAL HISTORY Procedure Laterality Date LAPS SURG CHOLECYSTECTOMY W/CHOLANGIOGRAPHY 01/14/11 Normal IOC, Acute cholecystitis NONE Allergies: Amoxicillin and Morphine Current Facility-Administered Medications Medication Dose Route Frequency [Transfer Hold] senna-docusate 8.6-50 mg 1 tablet (SENNA-S) 1 tablet ORAL BID fentaNYL 50 mcg/mL 50 mcg injection (SUBLIMAZE) 50 mcg INTRAVENOUS q 10 MIN PRN HYDROmorphone 0.2 mg injection (DILAUDID) 0.2 mg INTRAVENOUS q 5 MIN PRN [Transfer Hold] iv contrast (radiology procedure) INTRAVENOUS DIRECTED PRN [Transfer Hold] iv contrast (radiology procedure) INTRAVENOUS DIRECTED PRN [Transfer Hold] NaCl 0.9% iv flush bag 20 mL INTRAVENOUS PRN lactated ringers iv infusion 100 mL/hr INTRAVENOUS CONTINUOUS [Transfer Hold] acetaminophen 1,000 mg tab(s) (TYLENOL) 1,000 mg ORAL q 6 H [Transfer Hold] keTORolac 15 mg injection (Toradol) 15 mg INTRAVENOUS q 6 H [Transfer Hold] methocarbamol 1,000 mg tab(s) (ROBAXIN) 1,000 mg ORAL QID [Transfer Hold] gabapentin 300 mg cap(s) (NEURONTIN) 300 mg ORAL DAILY [Transfer Hold] ondansetron (PF) 4 mg injection (ZOFRAN) 4 mg INTRAVENOUS q 6 H PRN [Transfer Hold] lidocaine 4 % 1 patch (SALONPAS) 1 patch TRANSDERMAL DAILY [Transfer Hold] prochlorperazine 10 mg tab(s) (COMPAZINE) 10 mg ORAL q 6 H PRN [Transfer Hold] lidocaine patch - REMOVE OTHER AT BEDTIME And [Transfer Hold] lidocaine - VERIFY PATCH OTHER q 8 H FH: Non-contributory. Negative for any bleeding or clotting disorders. Social Hx: None ROS: 10 pt ROS neg except in HPI O: Vitals: BP 117/63 Pulse 67 Temp 36.6 ?C (97.9 ?F) (Temporal) Resp 20 Ht 182.9 cm (6') Wt 90.7 kg (199 lb 15.3 oz) SpO2 97% BMI 27.12 kg/m? Labs: Recent Labs 12/13/24 0600 12/12/24 1644 NA 136 136 K 4.2 3.1* CHLOR 105 105 CO2 26 23 BUN 18 21 CREAT 0.97 1.11 GLUC 103* 89 ANION 5 8 CA 9.3 9.8 ALB -- 4.2 AST -- 26 ALT -- 16 ALKPHOS -- 48 TBILI -- 0.7 WBC 7.40 9.97 HB 14.6 14.8 HCT 41.3 40.7 PLT 210 241 INR -- 1.2 Physical exam: General: AANDO x 3; NAD. Cooperative throughout entire interview Extremities: Left upper extremity: Inspection of left upper extremity demonstrates significant swelling and ecchymosis. No open wounds or abrasions. Tenderness palpation over the left elbow. Inability to straighten elbow. Sensation intact to light touch over the radial, median, ulnar nerve distribution. 2+ radial pulse. 5 out of 5 strength with AIN, PIN, ulnar nerve motor function. Imaging: Multiple views of left elbow personally reviewed demonstrating a comminuted fracture of the olecranon with significant displacement, a nondisplaced coronoid fracture and a nondisplaced radial head fracture A/P: 34 year old male with left olecranon fracture, radial head fracture, coronoid fracture status post fall - Trauma primary - N.p.o. - Plan for surgery today for open reduction internal fixation of his left olecranon fracture. Discussed the risk of the above procedure with patient including stiffness, malunion, nonunion, anesthetic complications, damage to structures, the patient like to proceed. Consent was obtained. Salvatore Maier MD 12:42 PM December 13, 2024 [facility] HISTORY PHYSICALon HISTORY PHYSICAL HNO ID: [id number] Author: DAVID CABAN MD Service: Trauma Author Type: Physician Type: H&P Filed: 12/16/2024 15:38 Note Text: Attending Note I have personally performed a face to face assessment of the patient and have reviewed the COLEEN note and agree with the documentation with my additions below. I performed a substantive portion of the visit including, but not limited to, the history, review of systems, and physical exam. The medical decision making for the patient was performed as a team with my supervision. Patient fell 6ft landing on his left elbow. Patient will go to the OR with the orthopedic team. Plan for admission to the trauma team. Will give pain pathway. 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 Patient denies losing consciousness or taking blood thinners. He was having neck, back, left arm and right knee pain on arrival to the ED. Imaging was obtained and he has a left ulnar olecranon fracture, intra-articular fracture of the left radial head, and nondisplaced fracture of the coronoid process. ALLERGIES Allergen Reactions Amoxicillin Rash Morphine Hives Immunization History Administered Date(s) Administered Haemophilus influenzae b (HbOC) vaccine, 4-dose series (HIBTITER) 1990 05/23/1991 06/12/1993 04/12/1995 diphtheria tetanus pertussis (DTaP) vaccine, pediatric (INFANRIX) 1990 1990 1990 06/12/1993 04/12/1995 measles mumps rubella (MMR) vaccine (M-M-R II, PRIORIX) 05/23/1991 poliovirus (OPV) vaccine, trivalent, live, oral (ORIMUNE) 1990 1990 06/12/1993 04/12/1995 tuberculin skin test (TST-PPD), purified protein derivative, intradermal 05/23/1991 PAST MEDICAL HISTORY Diagnosis Date Pure hypercholesterolemia PAST SURGICAL HISTORY Procedure Laterality Date LAP CHOLECYSTECT/CHOLANGIOGRAPHY 01/14/11 Normal IOC, Acute cholecystitis NONE Social History Tobacco Use Smoking status: Former Types: Cigars Smokeless tobacco: Never Substance Use Topics Alcohol use: No Review of Systems Review of Systems Cardiovascular: Negative for chest pain. Gastrointestinal: Negative for abdominal pain. Musculoskeletal: Positive for joint pain. Neurological: Negative for loss of consciousness. All other systems reviewed and are negative. OBJECTIVE: Objective VITALS: BP 111/58 Pulse 53 Temp (Src) 98.2 (Oral) Resp 16 Ht 6' 0 (1.83m) Wt 199 lb 15.3 oz (90.7kg) SpO2 99% BMI 27.11 kg/(m2). O2 Therapy: Room Air Temp (24hrs), Av.7 ?C (98.1 ?F), Min:36.4 ?C (97.5 ?F), Max:37.1 ?C (98.7 ?F) O2 Therapy: Room Air General: Well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 structures/fracture: No evidence of a lytic or blastic process in the visualized spine. No evidence of acute or chronic fracture. Cervical soft tissues: The paraspinal soft tissues planes are maintained. Degenerative changes: Moderate degenerative disc disease at C6-7 with disc height loss, degenerative endplate changes, and osteophytes. Associated mild to moderate canal stenosis at this level. IMPRESSION: No acute intracranial process. Heterogeneous opacification of the left anterior ethmoid, maxillary, and frontal sinuses compatible with likely chronic sinusitis. No evidence of an acute cervical spine fracture. Moderate degenerative disc disease at C6-7 with associated mild to moderate canal stenosis at this level. Photostat Operator Helper: CHRISTINE Transcribe Date/Time: Dec 12 2024 8:15P Dictated by : VIN CABRAL MD This examination was interpreted and the report reviewed and electronically signed by: VIN CABRAL MD on Dec 12 2024 8:32PM EST [id number] Normal [facility] CT CERVICAL SPINE WO IVCONon 12-12-2024 CT CERVICAL SPINE WO IVCON * * *Final Report* * * DATE OF EXAM: Dec 12 2024 6:53PM [facility] 0505 - CT CERVICAL SPINE WO IVCON / PROCEDURE REASON: Fall from height, neck pain, evaluate for traumatic injury * * * * Physician Interpretation * * * * EXAMINATION: CT BRAIN WO IVCON, CT CERVICAL SPINE WO IVCON CLINICAL HISTORY: From 6+ feet off of scaffolding landing on the left side -LOC +Neck and Back pain, Left arm pain, right knee pain. -Thinner. +C-collar TECHNIQUE: Serial axial unenhanced images were obtained from the vertex to the foramen magnum. Spiral, high resolution axial unenhanced images were obtained from the skull base to the cervicothoracic junction with sagittal and coronal planar reconstructions. Dose-Length Product (DLP): 1154.42 mGy*cm. CT Dose Reduction Employed: Automated exposure control(AEC) and iterative recon COMPARISON: None. RESULT: Plasterer Journeyman (topogram) images: No additional findings. BRAIN: Acute change: No evidence of an acute contusion or other acute parenchymal process. Hemorrhage: No evidence of acute intracranial hemorrhage. Mass lesion / Mass effect: There is no evidence of an intracranial mass or extraaxial fluid collection. No significant mass effect. Chronic change: None apparent. Parenchyma: There is no significant volume loss. The brain parenchyma is otherwise within normal limits for age. Ventricles: The ventricles are within normal limits of size and configuration for age. Paranasal sinuses and skull base: Near complete opacification of the left frontal sinus and complete opacification of the left maxillary sinus and anterior ethmoid air cells, and maxillary wall cortical thickening, suggesting chronic process. The skull base and visualized extracranial soft tissues are grossly normal. CERVICAL: Counting reference: Craniocervical junction. Anatomic Variants: None. Alignment: Alignment is anatomic. Craniocervical junction: Craniocervical junction is normal. Osseous structures/fracture: No evidence of a lytic or blastic process in the visualized spine. No evidence of acute or chronic fracture. Cervical soft tissues: The paraspinal soft tissues planes are maintained. Degenerative changes: Moderate degenerative disc disease at C6-7 with disc height loss, degenerative endplate changes, and osteophytes. Associated mild to moderate canal stenosis at this level. IMPRESSION: No acute intracranial process. Heterogeneous opacification of the left anterior ethmoid, maxillary, and frontal sinuses compatible with likely chronic sinusitis. No evidence of an acute cervical spine fracture. Moderate degenerative disc disease at C6-7 with associated mild to moderate canal stenosis at this level. Photostat Operator Helper: CHRISTINE Transcribe Date/Time: Dec 12 2024 8:15P Dictated by : VIN CABRAL MD This examination was interpreted and the report reviewed and electronically signed by: VIN CABRAL MD on Dec 12 2024 8:32PM EST [id number] [facility] CT CHEST W IVCONon 5 CT CHEST W IVCON * * *Final Report* * * DATE OF EXAM: Dec 12 2024 6:53PM [facility] 0539 - CT CHEST W IVCON / PROCEDURE REASON: Chest trauma, blunt * * * * Physician Interpretation * * * * EXAM: CT ABD/PEL W IVCON, CT CHEST W IVCON INDICATION: Fall from height, low back pain, evaluate for trauma Fall from height, low back pain, evaluate for trauma (accession [id number]), Chest trauma, blunt, Fall from height, low back pain, evaluate for trauma (accession [id number]) COMPARISON: None. CT Radiation dose: Integrated Dose-length product (DLP) for this visit = 1373.52 mGy*cm. CT Dose Reduction Employed: Automated exposure control(AEC) and iterative recon TECHNIQUE: Chest, abdomen and pelvis were scanned utilizing a multidetector helical scanner from the lung apex to the pubic symphysis. Coronal and sagittal reformations were obtained. CT low dose techniques were utilized, as applicable. Contrast: IV: 97 ml of Omnipaque 350 : ml of FINDINGS: Limitations: None. Evaluation for thromboembolic disease: Study is not designed specifically to evaluate the pulmonary arteries, no large or central embolism. Lines, tubes, and devices: None. Lung parenchyma, pleura, and airways: No evidence to suggest contusion. No pneumothorax. No pleural fluid. Lower neck, lymph nodes, and mediastinum: No pathologically enlarged nodes. Unremarkable thyroid gland. Moderate air in the esophagus. Small hiatus hernia. Heart, pericardium, and thoracic vessels: Normal heart size and aortic caliber. No pericardial effusion. No coronary calcifications are seen noting the study is not optimized for that evaluation. Thoracic aorta and great vessels of the arch with no evidence suspicious for acute traumatic injury and no other pathology seen. Liver: No mass. Biliary/Gallbladder: Gallbladder is not clearly identified.. No biliary ductal dilatation. Spleen: Unremarkable. Pancreas: Unremarkable. Adrenals: No mass. Kidneys: No suspicious mass. No hydronephrosis. Vasculature: Unremarkable aorta. Hepatic veins and portal venous system no pathology seen. Celiac and SMA with mild arcuate narrowing of the celiac origin. ANUSHA patent. GI Tract: Small hiatus hernia. GI tract otherwise no dilation or wall thickening, no evidence of acute findings. The appendix is clearly seen and is normal. Pelvis: Bladder mildly distended. Bladder otherwise unremarkable. No specific pathology of the prostate. Mesentery/Peritoneum/Retroper itoneum: No free air or fluid Lymph Nodes: No lymphadenopathy. Bones and soft tissues: No suspicious bone lesions. No acute findings. Incidental bilateral pars defects vertebra L4. Trace anterolisthesis L4-5. Some mild endplate changes. Well-corticated finding coronal image 22 associated with the posterior elements of L4. Plasterer Journeyman (topogram) images: No topogram is available at this time. IMPRESSION: Chest- No pneumothorax. No fractures. No evidence of traumatic aortic injury. No acute findings. Abdomen-no pneumoperitoneum. No findings suspicious for acute traumatic injury of the parenchymal organs. No findings suspicious for acute vascular injury. No large body wall hematomas. No acute fractures of the lumbar spine or bony pelvis. Incidental note of bilateral pars defects L4 which is a chronic finding. Slight anterolisthesis of L4-5 which is of unknown chronicity, no available prior. Photostat Operator Helper: [facility] Transcribe Date/Time: Dec 12 2024 7:02P Dictated by : RACHNA CHAVEZ MD This examination was interpreted and the report reviewed and electronically signed by: RACHNA CHAVEZ MD on Dec 12 2024 7:24PM EST [id number] Normal [facility] CT ELBOW WO CONTRAST LTon CT ELBOW WO CONTRAST LT * * *Final Report* * * DATE OF EXAM: Dec 12 2024 11:15PM [facility] 0069 - CT ELBOW WO CONTRAST LT / PROCEDURE REASON: Fracture, elbow * * * * Physician Interpretation * * * * EXAMINATION: CT ELBOW WO CONTRAST LT CLINICAL HISTORY: Fracture, elbow Technique: CT ELBOW WO CONTRAST LT Comparison: Radiographs performed the same day. No prior CT comparison. RESULT: Significantly displaced and comminuted fracture of the olecranon, with up to 3.8 cm distraction. Mildly comminuted radial head fracture with no significant displacement of fracture fragments. Nondisplaced fracture of the coronoid process. The distal humerus is intact. Prominent surrounding hematoma. Prominent joint effusion. Small focus of air within the joint and overlying soft tissue injury may suggest an open fracture. IMPRESSION: Comminuted fractures of the olecranon and radial head and nondisplaced fracture of the coronoid process as detailed. Photostat Operator Helper: [facility] Transcribe Date/Time: Dec 13 2024 2:06A Dictated by : JUSTICE EDGAR MD This examination was interpreted and the report reviewed and electronically signed by: JUSTICE EDGAR MD on Dec 13 2024 2:39AM EST [id number] Normal [facility] Comprehensive metabolic 2000 panelon 12-12-2024 Albumin [Mass/Vol] 4.2 g/dL Normal 3.2-5.0 [facility] Comment on above: Order Comment: Speci men Type: BLOOD SPECIMEN Ordering Facility: [facility] Address: [address] [id number] Performed By: #### 2 4323-8, 3040-3, 5643-2 #### [facility] CLIA [id number] [address] [place] [address] [place] ALP [Catalytic activity/Vol] 48 U/L Normal 45-117 [facility] Comment on above: Order Comment: Speci men Type: BLOOD SPECIMEN Ordering Facility: [facility] Address: [address] [place] [address] Performed By: #### 2 4323-8, 3040-3, 5643-2 #### [facility] CLIA [id number] [address] [place] [address] [place] ALT [Catalytic activity/Vol] 16 U/L Normal 13-61 [facility] Comment on above: Order Comment: Speci men Type: BLOOD SPECIMEN Ordering Facility: [facility] Address: [address] [place] [address] Result Comment: Resu lts may be falsely depressed after the administration of Sulfasalazine and/or Sulfapyridine. Performed By: #### 2 4323-8, 3040-3, 5643-2 #### [facility] CLIA [id number] [address] [place] [address] [place] Anion gap [Moles/Vol] 8 mmol/L Normal 5-16 [facility] Comment on above: Order Comment: Speci men Type: BLOOD SPECIMEN Ordering Facility: [facility] Address: [address] [place] [address] Performed By: #### 2 4323-8, 3040-3, 5643-2 #### [facility] CLIA [id number] [address] [place] [address] [place] AST [Catalytic activity/Vol] 26 U/L Normal 8-34 [facility] Comment on above: Order Comment: Speci men Type: BLOOD SPECIMEN Ordering Facility: [facility] Address: [address] [place] [address] Result Comment: Resu lts may be falsely depressed after the administration of Sulfasalazine and/or Sulfapyridine. Performed By: #### 2 4323-8, 3040-3, 5643-2 #### [facility] CLIA [id number] [address] [place], [place] [address] [place] Bilirubin [Mass/Vol] 0.7 mg/dL Normal 0.2-1.0 [facility] Comment on above: Order Comment: Speci men Type: BLOOD SPECIMEN Ordering Facility: [facility] Address: [address] [id number] Performed By: #### 2 4323-8, 0-3, 5643-2 #### [facility] CLIA [id number] [address] [place] [address] [place] Calcium [Mass/Vol] 9.8 mg/dL Normal 8.5-10.5 [facility] Comment on above: Order Comment: Speci men Type: BLOOD SPECIMEN Ordering Facility: [facility] Address: [address] [id number] Performed By: #### 2 4323-8, 0-3, 5643-2 #### [facility] CLIA [id number] [address] [place] [address] [place] Chloride [Moles/Vol] 105 mmol/L Normal 98-107 [facility] Comment on above: Order Comment: Speci men Type: BLOOD SPECIMEN Ordering Facility: [facility] Address: [address] [id number] Performed By: #### 2 4323-8, 0-3, 5643-2 #### [facility] CLIA [id number] [address] [place], [place] [address] [place] CO2 [Moles/Vol] 23 mmol/L Normal 21-32 [facility] Comment on above: Order Comment: Speci men Type: BLOOD SPECIMEN Ordering Facility: [facility] Address: [address] [place] [address] Performed By: #### 2 4323-8, 3040-3, 5643-2 #### [facility] CLIA [id number] [address] [place] [address] [place] Creatinine [Mass/Vol] 1.11 mg/dL Normal 0.50-1.40 [facility] Comment on above: Order Comment: Oziel oshea Type: BLOOD SPECIMEN Ordering Facility: [facility] Address: [address] [place] [address] Result Comment: Rose Marie ents receiving either N-Acetylcysteine (NAC) or Metamizole prior to venipuncture, may have falsely depressed results. Performed By: #### 2 4323-8, 304-3, 5643-2 #### [facility] CLIA [id number] [address] [place], [place] [address] [facility] [place] Creatinine and Glomerular filtration rate.predicted panel (S/P/Bld) 89 mL/min/1.73m??? Normal >=60 [facility] Comment on above: Order Comment: Oziel oshea Type: BLOOD SPECIMEN Ordering Facility: [facility] Address: [address] [place] [address] Result Comment: Nayeli mated Glomerular Filtration Rate (eGFR) is calculated using the 2020 CKD-EPI creatinine equation. This equation utilizes serum creatinine, sex, and age as parameters. The creatinine assay has traceable calibration to isotope dilution-mass spectrometry. Refer to KDIGO guidelines for clinical interpretation. In patients with unstable renal function, e.g. those with acute kidney injury, the eGFR may not accurately reflect actual GFR. Performed By: #### 2 4323-8, 3040-3, 5643-2 #### [facility] CLIA [id number] [address] [place], [place] [address] [place] Glucose [Mass/Vol] 89 mg/dL Normal 70-100 [facility] Comment on above: Order Comment: Oziel oshea Type: BLOOD SPECIMEN Ordering Facility: [facility] Address: [address] [place] [address] Result Comment: The [place] [employer] (ADA) provides guidance for cutoff values for fasting glucose and random glucose. The ADA defines fasting as no caloric intake for at least 8 hours. Fasting plasma glucose results between 100 to 125 mg/dL indicate increased risk for diabetes (prediabetes). Fasting plasma glucose results greater than or equal to 126 mg/dL meet the criteria for diagnosis of diabetes. In the absence of unequivocal hyperglycemia, results should be confirmed by repeat testing. In a patient with classic symptoms of hyperglycemia or hyperglycemic crisis, random plasma glucose results greater than or equal to 200 mg/dL meet the criteria for diagnosis of diabetes. Reference: Standards of Medical Care in Diabetes 2016, [place] [employer]. Diabetes Care. 2016.39(Suppl 1). Results may be falsely elevated after the administration of Sulfapyridine. Results may be falsely depressed after the administration of Sulfasalazine. Performed By: #### 2 4323-8, 3040-3, 5643-2 #### [facility] CLIA [id number] [address] [place] [address] [place] Potassium [Moles/Vol] 3.1 mmol/L Low 3.5-5.1 [facility] Comment on above: Order Comment: Oziel oshea Type: BLOOD SPECIMEN Ordering Facility: [facility] Address: [address] [place] [address] Performed By: #### 2 4323-8, 3040-3, 5643-2 #### [facility] CLIA [id number] [address] [place] [address] [place] Protein [Mass/Vol] 6.7 g/dL Normal 6.0-8.5 [facility] Comment on above: Order Comment: Oziel oshea Type: BLOOD SPECIMEN [facility] [facility] Address: [address] [place] [address] Performed By: #### 2 4323-8, 3040-3, 5643-2 #### [facility] CLIA [id number] [address] [place] [address] [place] Sodium [Moles/Vol] 136 mmol/L Normal 136-145 [facility] Comment on above: Order Comment: Oziel oshea Type: BLOOD SPECIMEN Ordering Facility: [facility] Address: [address] [id number] Performed By: #### 2 4323-8, 3040-3, 5643-2 #### [facility] CLIA [id number] [address] [place] [address] [facility] Urea nitrogen [Mass/Vol] 21 mg/dL Normal 03-15 [facility] Comment on above: Order Comment: Speci men Type: BLOOD SPECIMEN Ordering Facility: [facility] Address: [address] [place] [address] Performed By: #### 2 4323-8, 3040-3, 5643-2 #### [facility] CLIA [id number] [facility] [place] [id number] [facility] ED NOTEon 12-12-2024 ED NOTE HNO ID: [id number] Author: JEWELL SANCHEZ, JORDAN Service: Emergency Medicine Author Type: Registered Nurse Type: ED Notes Filed: 12/12/2024 23:40 Note Text: Pt c/o nausea with vomiting while this RN was in the room. Dr Caban contacted [facility] ED NOTE HNO ID: [id number] Author: ILEANA COBOS RN Service: ? Author Type: Registered Nurse Type: ED Notes Filed: 12/12/2024 23:23 Note Text: Pt does not want medication [facility] ED NOTE HNO ID: [id number] Author: ILEANA COBOS RN Service: ? Author Type: Registered Nurse Type: ED Notes Filed: 12/12/2024 23:03 Note Text: Pt ccollar in place [facility] ED PROV NOTEon 12-12-2024 ED PROV NOTE HNO ID: [id number] Author: PRIMITIVO REEVES MD Service: ? Author Type: Physician Type: ED Provider Notes Filed: 12/12/2024 23:26 Note Text: ED Provider Note Patient Name: David Munoz : 1990 SERVICE DATE: 12/12/24 CHIEF COMPLAINT Patient presents with: Fall: Fall from 6+ feet off of scaffolding landing on the left side -LOC +Neck and Back pain Left arm pain, right knee pain. -Thinner. +C-collar Fall from height HISTORY David Munoz is a 34 year old male with PMH per EMR including hyperlipidemia, denies antiplatelet or anticoagulation medication use, presents with concern for fall from height. Patient reports today at work he was on a scaffold, he was looking up and missed his footing causing him to fall 6 feet, striking his left side and left arm against the ground, he endorses pain in his left arm throughout, left hip, right knee, neck, and low back, denies loss of consciousness, denies intoxicating substance use, denies pain or injury elsewhere including the head, chest, abdomen or pelvis, or extremities otherwise. PAST MEDICAL HISTORY: as per HPI SOCIAL HISTORY: Per EMR former tobacco use REVIEW OF SYSTEMS Pertinent positive and negatives as per HPI. PHYSICAL EXAM Vitals [12/12/24 1633] BP Pulse Temp Temp src Resp SpO2 Weight Height 142/80 79 37.1 ?C (98.7 ?F) Oral 20 100 % 90.7 kg (200 lb) 1.829 m (6') Gen: alert, no acute distress Eye: normal conjunctiva, pupils 4 mm, symmetrical, equally reactive Neck: Cervical collar in place HEENT: No visible facial trauma, no scalp contusion, no scalp tenderness Respiratory: nonlabored respiration, bilateral breath sounds present, no chest wall tenderness Cardiovascular: Normal rate, regular rhythm, bilateral radial pulses palpable, bilateral DP pulses palpable, peripheral extremities warm and well-perfused throughout including left hand Gastrointestinal: Soft, nondistended, nontender Musculoskeletal: RUE: No tenderness or deformity LUE: Left arm in sling, diffuse tenderness throughout the left upper extremity more localized to the left elbow and humerus with swelling, skin intact, no palpable bony deformity throughout RLE: Mild tenderness throughout the right knee without palpable deformity or wound, patient tolerates patient is able to flex and extend the right knee without limitation, no swelling tenderness or deformity elsewhere throughout the right lower extremity LLE: No tenderness or deformity throughout including the left hip Back: No mild tenderness to palpation across the low back, no localizing tenderness throughout the midline thoracic or lumbar spine no step-offs or deformities Neurologic: GCS 15, alert and oriented, nonslurred speech, answering questions appropriately, wiggles left fingers, left wrist flexion and extension intact, sensation intact throughout the left hand, right hand manager pharmaceutical strength full, bilateral hip flexion and extension full strength, bilateral knee flexion extension full-strength, bilateral ankle plantarflexion and dorsiflexion full strength, wiggles toes bilaterally, sensation intact bilateral feet Left Hand Okay sign, opposition of distal phalanx of thumb and index finger, motor intact Thumb IP extension, motor intact Abduction of fingers, motor intact Palmar web space between thumb and index finger, sensation intact Dorsal web space between thumb and index finger, sensation intact Web space between pinky and ring finger, sensation intact MEDICAL DECISION MAKING Symptoms: Denied Differential Diagnoses - See MDM below Management Management of the patient was discussed with:admitting team and admitting team Medications iv contrast (radiology procedure) (has no administration in time range) iv contrast (radiology procedure) (has no administration in time range) NaCl 0.9% iv flush bag (has no administration in time range) acetaminophen 1,000 mg tab(s) (TYLENOL) (1,000 mg ORAL Given 12/12/241648) oxyCODONE IR 5 mg tab(s) (ROXICODONE) (5 mg ORAL Given 12/12/241648) David Munoz is a 34 year old male who presents as above, fall from 6 foot height, arrives afebrile hypertensive otherwise reassuring vitals, cervical collar in place, presentation concerning for traumatic injury including C-spine, L-spine, left upper extremity predominantly the left elbow, left hip, and right knee, discussed with patient, will obtain workup to evaluate for traumatic injuries including CT head and cervical spine, chest admitted pelvis, left arm x-rays, right knee x-ray, left hip x-ray, labs, will treat with Tylenol, oxycodone. Labs obtained, interpreted by me, notable for potassium 3.1 -will replete orally, creatinine 1.11, unremarkable LFTs, ethanol level negative, UDS negative, no leukocytosis, hemoglobin within normal limits CT head per radiologist interpretation no acute intracranial process, heterogenous opacification of the left (more content not included)... Normal [facility] Ethanol [Mass/Vol] mg/dL Normal <0.010 [facility] Comment on above: Order Comment: Speci men Type: BLOOD SPECIMEN Ordering Facility: [facility] Address: [address] [place], [place] [id number] Performed By: #### 2 4323-8, 3040-3, 5643-2 #### [facility] CLIA [id number] [address] [place], [place] [id number] [place] Lipase SerPl-cCncon 12-13-19 25 Lipase [Catalytic activity/Vol] 34 U/L Normal 12-60 [facility] Comment on above: Order Comment: Oziel oshea Type: BLOOD SPECIMEN Ordering Facility: [facility] Address: [address] [place] [address] Performed By: #### 2 4323-8, 3040-3, 5643-2 #### [facility] CLIA [id number] [address] [place] [address] [place] PT panel Coag (PPP)on 2024 INR Coag (PPP) [Relative time] 1.2 {INR} Normal 0.9-1.3 [facility] Comment on above: Order Comment: Oziel oshea Type: BLOOD SPECIMEN Ordering Facility: [facility] Address: [address] [place] [address] Result Comment: Miri min K Antagonist (VKA) Therapeutic Range: INR 2 to 3 (Target INR of 2.5) Note: For patients treated with VKA drugs, such as warfarin, the [employer] 2012 Guideline recommends a therapeutic INR range of 2 to 3 (target INR of 2.5). This recommendation includes high-risk patients with antiphospholipid syndrome with previous arterial or venous thromboembolism, current-generation mechanical or bioprosthetic aortic heart valve replacement. Note: Patients with mechanical aortic valve replacement and additional risk factors for thromboembolic events (atrial fibrillation, previous thromboembolism, LV dysfunction, hypercoagulable conditions) or an older generation mechanical AVR (i.e., ball in-Cage) or any mechanical MVR should have a INR therapeutic range of 2.5 to 3.5 (target INR of 3). Jay GH, et al. Chest 2012, 141:7S-47S Lenard RA et al. JACC 2017, 70: 252-289 Performed By: #### 3 4528-0, 15955-3 #### [facility] CLIA [id number] [address] [place], [place] [address] [place] PT Coag (PPP) [Time] 12.5 s Normal 9.7-13.0 [facility] Comment on above: Order Comment: Speci men Type: BLOOD SPECIMEN Ordering Facility: [facility] Address: [address] [place] [address] Performed By: #### 3 4528-0, 70702-1 #### [facility] CLIA [id number] [address] [place] [address] [place] TOXICOLOGY SCREEN, ROUTINE U RINEon 12-12-2024 Amphetamines Confirm (U) [Mass/Vol] Negative Normal Negative [facility] Comment on above: Order Comment: Speci men Type: BLOOD SPECIMEN Ordering Facility: [facility] Address: [address] [place] [address] Result Comment: Cuto ff threshold at 1000 ng/mL. Performed By: #### L [id number], TSCR #### [facility] CLIA [id number] [address] [place] [address] [place] BARBITURATES, URINE Negative Normal Negative [facility] Comment on above: Order Comment: Speci men Type: BLOOD SPECIMEN Ordering Facility: [facility] Address: [address] [place] [address] Result Comment: Cuto ff threshold at 200 ng/mL. Performed By: #### L [id number], TSCR #### [facility] CLIA [id number] [address] [place] [address] [place] BENZODIAZEPINES, UR Negative Normal Negative [facility] Comment on above: Order Comment: Speci men Type: BLOOD SPECIMEN Ordering Facility: [facility] Address: [address] [place] [address] Result Comment: Cuto ff threshold at 200 ng/mL. Performed By: #### L [id number], TSCR #### [facility] CLIA [id number] [address] [place] [address] [place] Cannabinoids Screen Ql (U) Negative Normal Negative [facility] Comment on above: Order Comment: Speci men Type: BLOOD SPECIMEN Ordering Facility: [facility] Address: [address] [place] [address] Result Comment: Cuto ff threshold at 50 ng/mL. Performed By: #### L [id number], TSCR #### [facility] CLIA [id number] [address] [place] [address] [place] Cocaine Ql (U) Negative Normal Negative [facility] Comment on above: Order Comment: Speci men Type: BLOOD SPECIMEN Ordering Facility: [facility] Address: [address] [place] [address] Result Comment: Cuto ff threshold at 300 ng/mL. Performed By: #### L [id number], TSCR #### [facility] CLIA [id number] [address] [place] [address] [place] Opiates Screen Ql (U) Negative Normal Negative [facility] Comment on above: Order Comment: Speci men Type: BLOOD SPECIMEN Ordering Facility: [facility] Address: [address] [place] [address] Result Comment: Cuto ff threshold at 300 ng/mL. Performed By: #### L [id number], TSCR #### [facility] CLIA [id number] [address] [place] [address] [place] Phencyclidine Ql (U) Negative Normal Negative [facility] Comment on above: Order Comment: Speci men Type: BLOOD SPECIMEN Ordering Facility: [facility] Address: [address] [place] [address] Result Comment: Cuto ff threshold at 25 ng/mL. Performed By: #### L [id number], TSCR #### [facility] CLIA [id number] [address] [place] [address] [place] TYPE + SCREENon 12-12-2024 ABO A Normal [facility] Comment on above: Order Comment: Speci men Type: BLOOD SPECIMEN Ordering Facility: [facility] Address: [address] [place] [address] Performed By: #### L [id number], TSCR #### [facility] CLIA [id number] [address] [place] [address] [place] Rh Nom (Bld) Positive Normal [facility] Comment on above: Order Comment: Speci men Type: BLOOD SPECIMEN Ordering Facility: [facility] Address: [address] [place] [id number] Performed By: #### L [id number], TSCR #### [facility] CLIA [id number] [address] [place] [address] TYPE AND SCREEN EXPIRATION 12/15/2024 23:59 Normal [facility] Comment on above: Order Comment: Speci men Type: BLOOD SPECIMEN Ordering Facility: [facility] Address: [address] [place] [id number] Performed By: #### L [id number], TSCR #### [facility] CLIA [id number] [address] [place], [place] [id number] [facility] XR ELBOW 2V AP/LAT LTon 11-20 XR ELBOW 2V AP/LAT LT * * *Final Report* * * DATE OF EXAM: Dec 12 2024 5:47PM [id number] 5322 - XR ELBOW 2V AP/LAT LT / PROCEDURE REASON: Elbow trauma, no prior imaging * * * * Physician Interpretation * * * * EXAMINATION: XR KNEE 4V AP/LAT/OBLS RT, XR ELBOW 2V AP/LAT LT, XR HUMERUS 2V AP/LAT LT, XR HIP 3V PELV+ AP/LAT LT, XR FOREARM 2V AP/LAT LT, XR HAND 3V PA/LAT/OBL LT CLINICAL HISTORY: Trauma (accession [id number]), Elbow trauma, no prior imaging (accession [id number]), Trauma (accession [id number]), Hip pain, acute, fx suspected, initial exam (accession [id number]), Trauma (accession [id number]), Trauma (accession [id number]), fall off of ladder, left-sided pain, back pain, left arm pain, right knee pain Comparison: None RESULT: RIGHT KNEE XRAY: Small suprapatellar joint effusion. No fracture visualized. No malalignment. LEFT HIP XRAY: No acute fracture or malalignment. Chronic appearing linear calcification inferior to the left iliac. LEFT HAND XRAY: Evaluation limited by positioning. Fingers incompletely in field of view. No acute fracture. LEFT ELBOW/FOREARM/HUMERUS XRAY: Acute comminuted fracture of the proximal ulna with approximately 3 cm distraction of the olecranon. Acute, comminuted, intra-articular fracture of the proximal radius. Large elbow joint effusion. No acute fracture of the proximal left humerus. No acute fracture of the distal left forearm. IMPRESSION: RIGHT KNEE XRAY: Small suprapatellar joint effusion without fracture visualized. If there is ongoing right knee pain, consider follow-up MRI. LEFT HIP XRAY: No acute fracture or dislocation of the left hip. LEFT HAND XRAY: Exam of the left hand is limited by positioning and incomplete visualization of the fingers in field of view. No acute fracture of the visualized bones. LEFT ELBOW/FOREARM/HUMERUS XRAY: 1. Acute comminuted and displaced left ulnar olecranon fracture. 2. Acute, comminuted intra-articular fracture of the radial head. 3. No acute fractures of the distal forearm or proximal humerus. Photostat Operator Helper: [facility] Transcribe Date/Time: Dec 12 2024 6:24P Dictated by : TRISTIN DOBSON MD This examination was interpreted and the report reviewed and electronically signed by: TRISTIN DOBSON MD on Dec 12 2024 6:34PM EST [id number] [facility] XR FOREARM 2V AP/LAT LTon XR FOREARM 2V AP/LAT LT * * *Final Report* * * DATE OF EXAM: Dec 12 2024 5:47PM [id number] [id number] - XR FOREARM 2V AP/LAT LT / PROCEDURE REASON: Trauma * * * * Physician Interpretation * * * * EXAMINATION: XR KNEE 4V AP/LAT/OBLS RT, XR ELBOW 2V AP/LAT LT, XR HUMERUS 2V AP/LAT LT, XR HIP 3V PELV+ AP/LAT LT, XR FOREARM 2V AP/LAT LT, XR HAND 3V PA/LAT/OBL LT CLINICAL HISTORY: Trauma (accession [id number]), Elbow trauma, no prior imaging (accession [id number]), Trauma (accession [id number]), Hip pain, acute, fx suspected, initial exam (accession [id number]), Trauma (accession [id number]), Trauma (accession [id number]), fall off of ladder, left-sided pain, back pain, left arm pain, right knee pain Comparison: None RESULT: RIGHT KNEE XRAY: Small suprapatellar joint effusion. No fracture visualized. No malalignment. LEFT HIP XRAY: No acute fracture or malalignment. Chronic appearing linear calcification inferior to the left iliac. LEFT HAND XRAY: Evaluation limited by positioning. Fingers incompletely in field of view. No acute fracture. LEFT ELBOW/FOREARM/HUMERUS XRAY: Acute comminuted fracture of the proximal ulna with approximately 3 cm distraction of the olecranon. Acute, comminuted, intra-articular fracture of the proximal radius. Large elbow joint effusion. No acute fracture of the proximal left humerus. No acute fracture of the distal left forearm. IMPRESSION: RIGHT KNEE XRAY: Small suprapatellar joint effusion without fracture visualized. If there is ongoing right knee pain, consider follow-up MRI. LEFT HIP XRAY: No acute fracture or dislocation of the left hip. LEFT HAND XRAY: Exam of the left hand is limited by positioning and incomplete visualization of the fingers in field of view. No acute fracture of the visualized bones. LEFT ELBOW/FOREARM/HUMERUS XRAY: 1. Acute comminuted and displaced left ulnar olecranon fracture. 2. Acute, comminuted intra-articular fracture of the radial head. 3. No acute fractures of the distal forearm or proximal humerus. Photostat Operator Helper: CHRISTINE Transcribe Date/Time: Dec 12 2024 6:24P Dictated by : TRISTIN DOBSON MD This examination was interpreted and the report reviewed and electronically signed by: TRISTIN DOBSON MD on Dec 12 2024 6:34PM EST [id number] [facility] XR HAND 3V PA/LAT/OBL LTon 0 12-12-2024 XR HAND 3V PA/LAT/OBL LT * * *Final Report* * * DATE OF EXAM: Dec 12 2024 5:47PM [id number] 5345 - XR HAND 3V PA/LAT/OBL LT / PROCEDURE REASON: Trauma * * * * Physician Interpretation * * * * EXAMINATION: XR KNEE 4V AP/LAT/OBLS RT, XR ELBOW 2V AP/LAT LT, XR HUMERUS 2V AP/LAT LT, XR HIP 3V PELV+ AP/LAT LT, XR FOREARM 2V AP/LAT LT, XR HAND 3V PA/LAT/OBL LT CLINICAL HISTORY: Trauma (accession [id number]), Elbow trauma, no prior imaging (accession [id number]), Trauma (accession [id number]), Hip pain, acute, fx suspected, initial exam (accession [id number]), Trauma (accession [id number]), Trauma (accession [id number]), fall off of ladder, left-sided pain, back pain, left arm pain, right knee pain Comparison: None RESULT: RIGHT KNEE XRAY: Small suprapatellar joint effusion. No fracture visualized. No malalignment. LEFT HIP XRAY: No acute fracture or malalignment. Chronic appearing linear calcification inferior to the left iliac. LEFT HAND XRAY: Evaluation limited by positioning. Fingers incompletely in field of view. No acute fracture. LEFT ELBOW/FOREARM/HUMERUS XRAY: Acute comminuted fracture of the proximal ulna with approximately 3 cm distraction of the olecranon. Acute, comminuted, intra-articular fracture of the proximal radius. Large elbow joint effusion. No acute fracture of the proximal left humerus. No acute fracture of the distal left forearm. IMPRESSION: RIGHT KNEE XRAY: Small suprapatellar joint effusion without fracture visualized. If there is ongoing right knee pain, consider follow-up MRI. LEFT HIP XRAY: No acute fracture or dislocation of the left hip. LEFT HAND XRAY: Exam of the left hand is limited by positioning and incomplete visualization of the fingers in field of view. No acute fracture of the visualized bones. LEFT ELBOW/FOREARM/HUMERUS XRAY: 1. Acute comminuted and displaced left ulnar olecranon fracture. 2. Acute, comminuted intra-articular fracture of the radial head. 3. No acute fractures of the distal forearm or proximal humerus. Photostat Operator Helper: P[facility] Transcribe Date/Time: Dec 12 2024 6:24P Dictated by : TRISTIN DOBSON MD This examination was interpreted and the report reviewed and electronically signed by: TRISTIN DOBSON MD on Dec 12 2024 6:34PM EST [id number] [facility] XR HIP 3V PELV+ AP/LAT LTon 12-12-2024 XR HIP 3V PELV+ AP/LAT LT * * *Final Report* * * DATE OF EXAM: Dec 12 2024 5:47PM [id number] [id number] - XR HIP 3V PELV+ AP/LAT LT / PROCEDURE REASON: Hip pain, acute, fx suspected, initial exam * * * * Physician Interpretation * * * * EXAMINATION: XR KNEE 4V AP/LAT/OBLS RT, XR ELBOW 2V AP/LAT LT, XR HUMERUS 2V AP/LAT LT, XR HIP 3V PELV+ AP/LAT LT, XR FOREARM 2V AP/LAT LT, XR HAND 3V PA/LAT/OBL LT CLINICAL HISTORY: Trauma (accession [id number]), Elbow trauma, no prior imaging (accession [id number]), Trauma (accession [id number]), Hip pain, acute, fx suspected, initial exam (accession [id number]), Trauma (accession [id number]), Trauma (accession [id number]), fall off of ladder, left-sided pain, back pain, left arm pain, right knee pain Comparison: None RESULT: RIGHT KNEE XRAY: Small suprapatellar joint effusion. No fracture visualized. No malalignment. LEFT HIP XRAY: No acute fracture or malalignment. Chronic appearing linear calcification inferior to the left iliac. LEFT HAND XRAY: Evaluation limited by positioning. Fingers incompletely in field of view. No acute fracture. LEFT ELBOW/FOREARM/HUMERUS XRAY: Acute comminuted fracture of the proximal ulna with approximately 3 cm distraction of the olecranon. Acute, comminuted, intra-articular fracture of the proximal radius. Large elbow joint effusion. No acute fracture of the proximal left humerus. No acute fracture of the distal left forearm. IMPRESSION: RIGHT KNEE XRAY: Small suprapatellar joint effusion without fracture visualized. If there is ongoing right knee pain, consider follow-up MRI. LEFT HIP XRAY: No acute fracture or dislocation of the left hip. LEFT HAND XRAY: Exam of the left hand is limited by positioning and incomplete visualization of the fingers in field of view. No acute fracture of the visualized bones. LEFT ELBOW/FOREARM/HUMERUS XRAY: 1. Acute comminuted and displaced left ulnar olecranon fracture. 2. Acute, comminuted intra-articular fracture of the radial head. 3. No acute fractures of the distal forearm or proximal humerus. Photostat Operator Helper: PSC[employer] Transcribe Date/Time: Dec 12 2024 6:24P Dictated by : TRISTIN DOBSON MD This examination was interpreted and the report reviewed and electronically signed by: TRISTIN DOBSON MD on Dec 12 2024 6:34PM EST [id number] [facility] XR HUMERUS 2V AP/LAT LTon XR HUMERUS 2V AP/LAT LT * * *Final Report* * * DATE OF EXAM: Dec 12 2024 5:47PM [id number] [id number] - XR HUMERUS 2V AP/LAT LT / PROCEDURE REASON: Trauma * * * * Physician Interpretation * * * * EXAMINATION: XR KNEE 4V AP/LAT/OBLS RT, XR ELBOW 2V AP/LAT LT, XR HUMERUS 2V AP/LAT LT, XR HIP 3V PELV+ AP/LAT LT, XR FOREARM 2V AP/LAT LT, XR HAND 3V PA/LAT/OBL LT CLINICAL HISTORY: Trauma (accession [id number]), Elbow trauma, no prior imaging (accession [id number]), Trauma (accession [id number]), Hip pain, acute, fx suspected, initial exam (accession [id number]), Trauma (accession [id number]), Trauma (accession [id number]), fall off of ladder, left-sided pain, back pain, left arm pain, right knee pain Comparison: None RESULT: RIGHT KNEE XRAY: Small suprapatellar joint effusion. No fracture visualized. No malalignment. LEFT HIP XRAY: No acute fracture or malalignment. Chronic appearing linear calcification inferior to the left iliac. LEFT HAND XRAY: Evaluation limited by positioning. Fingers incompletely in field of view. No acute fracture. LEFT ELBOW/FOREARM/HUMERUS XRAY: Acute comminuted fracture of the proximal ulna with approximately 3 cm distraction of the olecranon. Acute, comminuted, intra-articular fracture of the proximal radius. Large elbow joint effusion. No acute fracture of the proximal left humerus. No acute fracture of the distal left forearm. IMPRESSION: RIGHT KNEE XRAY: Small suprapatellar joint effusion without fracture visualized. If there is ongoing right knee pain, consider follow-up MRI. LEFT HIP XRAY: No acute fracture or dislocation of the left hip. LEFT HAND XRAY: Exam of the left hand is limited by positioning and incomplete visualization of the fingers in field of view. No acute fracture of the visualized bones. LEFT ELBOW/FOREARM/HUMERUS XRAY: 1. Acute comminuted and displaced left ulnar olecranon fracture. 2. Acute, comminuted intra-articular fracture of the radial head. 3. No acute fractures of the distal forearm or proximal humerus. Photostat Operator Helper: CHRISTINE Transcribe Date/Time: Dec 12 2024 6:24P Dictated by : TRISTIN DOBSON MD This examination was interpreted and the report reviewed and electronically signed by: TRISTIN DOBSON MD on Dec 12 2024 6:34PM EST [id number] [facility] XR KNEE 4V AP/LAT/OBLS RTon 12-12-2024 XR KNEE 4V AP/LAT/OBLS RT * * *Final Report* * * DATE OF EXAM: Dec 12 2024 5:47PM RHX [id number] - XR KNEE 4V AP/LAT/OBLS RT / PROCEDURE REASON: Trauma * * * * Physician Interpretation * * * * EXAMINATION: XR KNEE 4V AP/LAT/OBLS RT, XR ELBOW 2V AP/LAT LT, XR HUMERUS 2V AP/LAT LT, XR HIP 3V PELV+ AP/LAT LT, XR FOREARM 2V AP/LAT LT, XR HAND 3V PA/LAT/OBL LT CLINICAL HISTORY: Trauma (accession [id number]), Elbow trauma, no prior imaging (accession [id number]), Trauma (accession [id number]), Hip pain, acute, fx suspected, initial exam (accession [id number]), Trauma (accession [id number]), Trauma (accession [id number]), fall off of ladder, left-sided pain, back pain, left arm pain, right knee pain Comparison: None RESULT: RIGHT KNEE XRAY: Small suprapatellar joint effusion. No fracture visualized. No malalignment. LEFT HIP XRAY: No acute fracture or malalignment. Chronic appearing linear calcification inferior to the left iliac. LEFT HAND XRAY: Evaluation limited by positioning. Fingers incompletely in field of view. No acute fracture. LEFT ELBOW/FOREARM/HUMERUS XRAY: Acute comminuted fracture of the proximal ulna with approximately 3 cm distraction of the olecranon. Acute, comminuted, intra-articular fracture of the proximal radius. Large elbow joint effusion. No acute fracture of the proximal left humerus. No acute fracture of the distal left forearm. IMPRESSION: RIGHT KNEE XRAY: Small suprapatellar joint effusion without fracture visualized. If there is ongoing right knee pain, consider follow-up MRI. LEFT HIP XRAY: No acute fracture or dislocation of the left hip. LEFT HAND XRAY: Exam of the left hand is limited by positioning and incomplete visualization of the fingers in field of view. No acute fracture of the visualized bones. LEFT ELBOW/FOREARM/HUMERUS XRAY: 1. Acute comminuted and displaced left ulnar olecranon fracture. 2. Acute, comminuted intra-articular fracture of the radial head. 3. No acute fractures of the distal forearm or proximal humerus. Photostat Operator Helper: [facility]ITALNoreen Transcribe Date/Time: Dec 12 2024 6:24P Dictated by : TRISTIN DOBSON MD This examination was interpreted and the report reviewed and electronically signed by: TRISTIN DOBSON MD on Dec 12 2024 6:34PM EST [id number] Normal [facility] aPTT PPPon 12-12-2024 aPTT Coag (PPP) [Time] 26.1 s Normal 23.0-32.4 [facility] Comment on above: Order Comment: Speci men Type: BLOOD SPECIMEN Ordering Facility: [facility] Address: [address] [place], [place] [address] Performed By: #### 3 4528-0, 06666-9 #### [facility] CLIA [id number] [address] [place] [address] [place] CBC and Differentialon 10-21 Abs Baso 0.03 k/uL Normal <0.11 [facility] Comment on above: Performed By: #### C BCDIF ALCO, CMP ####[facility] [address] [place] [phone] Abs [place] 0.71 k/uL Normal <0.87 [facility] Comment on above: Performed By: #### C BCDIF, ALCO, CMP ####[facility] [address] [place], [place] [phone] Abs Neut 5.44 k/uL Normal 1.45-7.50 [facility] Comment on above: Performed By: #### C BCDIF, ALCO, CMP ####[facility] [address] [place] [address] Basophils/100 WBC Auto (Bld) 0.3 % Normal [facility] Comment on above: Performed By: #### C BCDIF, ALCO, CMP ####[facility] [address] [place] [address] Eosinophils 0.32 10*3/uL Normal <0.46 [facility] Comment on above: Performed By: #### C BCDIF, ALCO, CMP ####[facility] [address] [place] [address] Eosinophils/100 leukocytes 3.7 % Normal [facility] Comment on above: Performed By: #### C BCDIF, ALCO, CMP ####[place] [address] Erythrocyte distribution width Auto Ratio (RBC) 12.3 % Normal 11.5-15.0 [facility] Comment on above: Performed By: #### C BCDIF, ALCO, CMP ####[facility] [address] [place] [address] Erythrocytes (RBC) 5.39 10*6/uL Normal 4.20-6.00 [facility] Comment on above: Performed By: #### C BCDIF, ALCO, CMP ####[facility] [address] [place] [address] Hematocrit (HCT) 48.8 % Normal 39.0-51.0 [facility] Comment on above: Performed By: #### C BCDIF, ALCO, CMP ####[facility] [address] [place] [address] Hemoglobin mass conc (Bld) 16.7 g/dL Normal 13.0-17.0 [facility] Comment on above: Performed By: #### C BCDIF, ALCO, CMP ####[facility] [address] [place] [address] Lymphocytes 2.10 10*3/uL Normal 1.00-4.00 [facility] Comment on above: Performed By: #### C BCDIF, ALCO, CMP ####[facility] [address] [place] [address] Lymphocytes/100 leukocytes 24.4 % Normal [facility] Comment on above: Performed By: #### C BCERICF ALCO, CMP ####[facility] [address] [place] [address] MCH 31.0 pG Normal 26.0-34.0 [facility] Comment on above: Performed By: #### C BCERICF ALCO, CMP ####[facility] [address] [place] [address] MCHC mass conc (RBC) 34.2 g/dL Normal 30.5-36.0 [facility] Comment on above: Performed By: #### C BCERICF ALCO, CMP ####[place] [address] MCV 90.5 fL Normal 80.0-100.0 [facility] Comment on above: Performed By: #### C BCERICF ALCO, CMP ####[place] [address] Monocytes/100 leukocytes 8.3 % Normal [facility] Comment on above: Performed By: #### C BCMACK ALCO, CMP ####[place] [address] Neutrophils/100 WBC Auto (Bld) 63.3 % Normal [facility] Comment on above: Performed By: #### C BCERICF ALCO, CMP ####[place] [address] Platelet mean volume (PMV) 11.1 fL Normal 9.0-12.7 [facility] Comment on above: Performed By: #### C BCDIF, ALCO, CMP ####[facility] [address] [place] [address] Platelets 287 10*3/uL Normal 150-400 [facility] Comment on above: Performed By: #### C BCDIF, ALCO, CMP ####[facility] [address] [place] [address] WBC (Leukocytes) 8.60 10*3/uL Normal 3.70-11.00 [facility] Comment on above: Performed By: #### C BCDIF, ALCO, CMP ####[facility] [address] [place] [address] Comp Metabolic Panelon 10-21 Alanine aminotransferase (ALT) 20 U/L Normal 10-54 [facility] Comment on above: Performed By: #### C BCDIF, ALCO, CMP ####[facility] [address] [place] [address] Albumin 4.7 g/dL Normal 3.9-4.9 [facility] Comment on above: Performed By: #### C BCDIF, ALCO, CMP ####[facility] [address] [place] [address] Alkaline phosphatase (ALP) 56 U/L Normal 36-108 [facility] Comment on above: Performed By: #### C BCDIF, ALCO, CMP ####[facility] [address] [place] [address] Anion gap 10 mmol/L Normal 9-18 [facility] Comment on above: Performed By: #### C BCDIF, ALCO, CMP ####[facility] [address] [place] [address] Aspartate aminotransferase (AST) 20 U/L Normal 14-40 [facility] Comment on above: Performed By: #### C BCDIF, ALCO, CMP ####[facility] [address] [place] [address] Bilirubin (total) 0.6 mg/dL Normal 0.2-1.3 [facility] Comment on above: Performed By: #### C BCDIF, ALCO, CMP ####[facility] [address] [place] [address] Calcium 9.5 mg/dL Normal 8.5-10.2 [facility] Comment on above: Performed By: #### C BCDIF, ALCO, CMP ####[facility] [address] [place] [address] Chloride 100 mmol/L Normal 97-105 [facility] Comment on above: Performed By: #### C BCDIF, ALCO, CMP ####[facility] [address] [place] [address] CO2 28 mmol/L Normal 22-30 [facility] Comment on above: Performed By: #### C JUDIT CEDILLO CMP ####[facility] [address] [place] [address] Creatinine 1.04 mg/dL Normal 0.73-1.22 [facility] Comment on above: Performed By: #### C MARISELFJUDIT, CMP ####[facility] [address] [place] [address] eGFR (non-black) mL/min/{1.73_m2} Normal [facility] Comment on above: Result Comment: eGFR (Estimated GFR) Units of measure: mL/min/1.73 meters squaredeGFR is derived from the reexpressed MDRD Study equation using the following parameters: serum creatinine, age, gender and race. The creatinine assay has been calibrated to be traceable to IDMS.An eGFR <60 mL/min/1.73m2 for >3 months is consistent with chronic kidney disease. Refer to KDOQI guidelines for clinical interpretation.In patients with unstable renal function, e.g. those with acute kidney injury, the eGFR may not accurately reflect actual GFR. Performed By: #### C JUDIT CEDILLO CMP ####[facility] [address] [place] [address] Glucose mass conc 99 mg/dL Normal 74-99 [facility] Comment on above: Result Comment: The [place] [employer] (ADA) provides guidance for cutoff values for fasting glucose and random glucose. The ADA defines fasting as no caloric intake for at least 8 hours. Fasting plasma glucose results between 100 to 125 mg/dL indicate increased risk for diabetes (prediabetes).Fasting plasma glucose results greater than or equal to 126 mg/dL meet the criteria for diagnosis of diabetes. In the absence of unequivocal hyperglycemia, results should be confirmed by repeat testing. In a patient with classic symptoms of hyperglycemia or hyperglycemic crisis, random plasma glucose results greater than or equal to 200 mg/dL meet the criteria for diagnosis of diabetes.Reference: Standards of Medical Care in Diabetes 2016, [place] [employer]. Diabetes Care. 2016.39(Suppl 1). Performed By: #### C MARISELFUJDIT, CMP ####[facility] [address] Potassium molar conc 4.3 mmol/L Normal 3.7-5.1 [facility] Comment on above: Performed By: #### C BCDIF, ALCO, CMP ####[facility] [address] [place] [address] Protein 7.0 g/dL Normal 6.3-8.0 [facility] Comment on above: Performed By: #### C BCDIF, ALCO, CMP ####[facility] [address] [place] [address] Sodium 138 mmol/L Normal 136-144 [facility] Comment on above: Performed By: #### C BCDIF, ALCO, CMP ####[facility] [address] [place] [address] Urea nitrogen 9 mg/dL Normal 9-24 [facility] Comment on above: Performed By: #### C BCDIF, ALCO, CMP ####[facility] [address] [place] [address] ED NOTEon 10-21-2017 ED NOTE HNO ID: [id number] Author: Zhanna SorensonRn) JORDAN Cedeño Service: (none) Author Type: Registered Nurse Type: ED Notes Filed: 10/21/2017 7:12 PM Note Text: Received pt report from Debby ORTEGA, assumed care of pt [facility] ED NOTE HNO ID: [id number] Author: Debby (Rn) JORDAN Horner Service: (none) Author Type: Registered Nurse Type: ED Notes Filed: 10/21/2017 7:02 PM Note Text: AP completed assessment. Awaiting plan. [facility] ED NOTE HNO ID: [id number] thor: Debby (Rn) SEAN Hornerervice: (none)Author Type: Registered NurseType: ED NotesFiled: 10/21/2017 6:15 PMNote Text: Mother of patient called for update. Awaiting AP eval. Mother states,you better not make him walk home. Advised mother that AP will directthe discharge plan. Mother raised her voice stating [facility] you make him walk 4 miles home. You promised to get him a ride home. Advised mother again that Iunderstand her concern and that we do not have any discharge plan at thistime. Advised her that the caregivers (Nestor,myself) did not advise herthat the hospital would provide a ride home. Nestor updated on above. [facility] ED NOTE HNO ID: [id number] Author: Debby SorensonRn) JORDAN Horner Service: (none) Author Type: Registered Nurse Type: ED Notes Filed: 10/21/2017 5:19 PM Note Text: Offered dinner tray, refused [facility] ED NOTE HNO ID: [id number] thor: Debby (Rn) SEAN Hornerervice: (none)Author Type: Registered NurseType: ED NotesFiled: 10/21/2017 3:49 PMNote Text: Mother at bedside. Arguing, patient demanded mother to leave. Escortedmother to Nestor WARNER to provide details of today's situation. [facility] ED NOTE HNO ID: [id number] thor: Debby SorensonRn) SEAN Hornerervice: (none)Author Type: Registered NurseType: ED NotesFiled: 10/21/2017 3:44 PMNote Text: Patient to ED 7 under pink slip/ law enforcement for verbal threat toshoot himself with a firearm he recently purchased. Patient iscooperative to staff. Denies the verbal threat and denies purchasing anew firearm. States mother of his 18 mo old child will not accommodateroutine visits for him to see child. This escalated to an argument on thephone resulting in the girlfriend and mother concerned that he would harmhimself. [facility] ED NOTE HNO ID: [id number] Author: Debby (Rn) Evens, JORDAN Service: (none) Author Type: Registered Nurse Type: ED Notes Filed: 10/21/2017 2:57 PM Note Text: Nestor PA at bedside. Patients belongings, clothing placed in secured locker. [facility] ED PROV NOTEon 10-21-2017 ED PROV NOTE HNO ID: [id number] thor: ISAMAR Nixonervice: Emergency MedicineAuthor Type: PhysicianType: ED Provider NotesFiled: 10/21/2017 8:17 PMNote Text:ED Provider NotePatient Name: David MunozMRN: [id number] DATE: 10/21/17HistoryPatient presents with:Suicidal Ideation: ex girl friend called police and sts that he issuicidal and has a gun. pt sts i do have gun at house, and we have beenfighting, but not suicidal. denies any hx psych or depression in past.HPI Comments: 27 year old healthy male presents to the emergencydepartment with police for suicidal ideation. According to police report,patient's mom called the captain cannery tender because she believed the patient wassuicidal. Police state, that the girlfriend texted the mom and said thepatient was suicidal and has access to guns at home. Mom tried to callthe patient but he would not answer her phone calls therefore she calledthe captain cannery tender on him Patient denies any suicidal homicidal ideation. He doesmention that he does have access to guns at home but he has never had anythoughts of hurting himself or others. Patient denies any pain. Momstates that he had a similar episode about a couple months ago when hequit his job and since then he has been more depressed. patient himselfDenies any history of depression, anxiety or any psychiatric disorders inthe past. He states that over the last couple months he and his ex gfhave been having arguments due to his 18 months child and today they gotinto another argument. Mom states that the patient went to his ex gfhouse this past Monday and took the guns out of her house and into hishouse.History provided by: Patient and medical recordsPAST MEDICAL HISTORYDiagnosis Date- Pure hypercholesterolemiaPAST SURGICAL HISTORYProcedure Laterality Date- LAP CHOLECYSTECT/CHOLANGIOGRAPHY 01/14/11 Normal IOC, Acute cholecystitis- NONEFAMILY HISTORYProblem Relation Age of Onset- Cancer Other uterine- Cancer Other- Diabetes Maternal Grandmother- increased chol [Other] [OTHER] Other motherSocial HistorySocial History Main Topics- Smoking status: Former Smoker Types: Cigars- Smokeless tobacco: Never Used- Alcohol use No- Drug use: Not on file- Sexual activity: Not on fileALLERGIESAllergen Reactions- Amoxicillin Rash- Morphine Hives- Raw Shrimp [Other] Swelling, GI Upset, ItchingReview of SystemsConstitutional: Negative for chills and fever.HENT: Negative for congestion and sore throat.Eyes: Negative for photophobia and visual disturbance.Respiratory: Negative for cough and shortness of breath.Cardiovascular: Negative for chest pain and palpitations.Gastrointestinal : Negative for abdominal pain and blood in stool.Genitourinary: Negative for dysuria and hematuria.Musculoskeletal: Negative for neck pain and neck stiffness.Skin: Negative for color change.Neurological: Negative for dizziness and headaches.Psychiatric/Behavio ral: Positive for suicidal ideas. Negative foragitation and confusion.Physical ExamBP 135/78 Pulse 78 Temp (Src) 97.9 (Oral) Resp 16 Wt 190 lb(86.2kg) SpO2 98%Physical ExamConstitutional: He is oriented to person, place, and time. He appearswell-developed.HENT:He ad: Normocephalic.Eyes: Conjunctivae are normal.Neck: Normal range of motion.Cardiovascular: Normal rate.Pulmonary/Chest: Effort normal and breath sounds normal.Abdominal: Soft. Bowel sounds are normal.Musculoskeletal: Normal range of motion.Neurological: He is alert and oriented to person, place, and time.Skin: Skin is warm and dry.Psychiatric: He has a normal mood and affect. His speech is normal andbehavior is normal. Thought content normal.Diagnostic TestingED Labs Ordered and ReviewedTOX SCREEN ROUT UR - Abnormal; Notable for the following: Result Value Ref Range Amphetamines Preliminary positive. (*) Negative All other components within normal limitsALCOHOL/ETHANOL BLDCBC + DIFFCOMP METABOLIC PANELURINALYSISProceduresMedi markel Decision Making / ED CourseED CourseThe medical record is reviewed.Triage note is reviewed and incorporated.The nursing note is reviewed and consistent with patient's history andphysical exam findings. The vital signs were reviewed the the vital signsare : BP 135/78 Pulse 78 Temp 36.6 ?C (97.9 ?F) (Oral) Resp 16 Wt86.2 kg (190 lb) SpO2 98% BMI 25.95 kg/m2ECG directly visualized and independently interpreted by me and attendingphysician showed : nsr, rate of 71, no stemiMDM:This is a well-appearing male w who presents to the ED with a chiefcomplaint of suicidal ideations who is, afebrile , hemodynamicallystable, in no acute distress patient . Based on patient's pmh, chiefcomplaint and physical exam findings, differential diagnoses includeelectrolyte imbalance vs alcohol intoxication, vs infection.Labs and imaging studies reveal cbc,cmp, ethanol all within normal limitsua within normal limits , urine tox with positive for amphetamines patient is medically cleared. A/P will evaluate him.A/P evaluated the patient and she does not think that admission isnecessary at this time and feels safe discharging the patient home.I spoke to mom, and she will go home and remove the guns from his house.Went back to evaluate the patient and he is not suicidal or homicidal . Hesays there is a lot of things in his life that he cares about to killshimself. He will be dischargedAt this time, based on the patient's history, physical exam findings, labresults and clinical picture , the most likely diagnosis is suicidalideatoinsPt educated on the most common causes of suicidal ideationsPt instructed to follow up with PCP in 1-2 daysDischarge care instructions, medications, follow up instructions, andreasons to return to the ED immediately, such as worsening of symptoms orany new symptoms, were provided verbally and in writing to patient(patient guardian / customer support representative), who verbalized understanding.The attending who evaluated and managed this patient was Dr. Stein note was partially generated using Adenyo voice recognition system,and there may be some incorrect words, spellings, and punctuation thatwere not noted in checking the note before savingEncounter Diagnosis ICD-10-CM1. Suicidal ideations R45.851(R45.851) Suicidal ideations (primary encounter diagnosis)Comment: acutePlan: dc see pcp rest see A/P , return to ed if sx worsenPlanThe Patient was DISCHARGED: Counseled patient and family regarding labresults AND suspected diagnosis AND need for follow-up. Discharged home withverbal and written instructions. They were instructed to return as neededfor persistent or worsening symptoms or any new concerns.Condition at time of disposition: stableSIGNATURE: Ken Rhoades (Dwight Zepeda10/21/17 1932Patient was discussed with the ALANA and alternative paths. I agree withtheir assessment and plans. I did attempt to see the patient however hewas arguing with his mother at the time.Nina Fernandes MD10/21/172016 Normal [facility] Ethanolon 10-21-2017 Ethanol mg/dL Normal <11 [facility] Comment on above: Performed By: #### C BCDIF, ALCO, CMP ####[facility] [address] [place] [address] Toxicology Screen,Uron 10-21 Amphetamines, Urine Positive Critically abnormal Negative [facility] Comment on above: Result Comment: Cuto ff threshold at 1000 ng/mL. Performed By: #### U Jamir, UTOX2 ####[facility] [address] [place] [address] Barbiturates, Urine Negative Normal Negative [facility] Comment on above: Result Comment: Cuto ff threshold at 200 ng/mL. Performed By: #### U Jamir UTOX2 ####[facility] [address] [place] [address] Benzodiazepines, Ur Negative Normal Negative [facility] Comment on above: Result Comment: Cuto ff threshold at 200 ng/mL. Performed By: #### U Jamir, UTOX2 ####[facility] [address] [place] [address] Cannabinoids, Urine Negative Normal Negative [facility] Comment on above: Result Comment: Cuto ff threshold at 50 ng/mL. Performed By: #### U Jamir, UTOX2 ####[facility] [address] [place] [address] Cocaine, Urine Negative Normal Negative [facility] Comment on above: Result Comment: Cuto ff threshold at 300 ng/mL. Performed By: #### U Jamir, UTOX2 ####[facility] [address] [place] [address] Opiates, Urine Negative Normal Negative [facility] Comment on above: Result Comment: Cuto ff threshold at 300 ng/mL. Performed By: #### U A, UTOX2 ####[facility] [address] [place] [address] Oxycodone, Urine Negative Normal Negative [facility] Comment on above: Result Comment: Cuto ff threshold at 100 ng/mL.Comment:Immunoassay screen only. Cross reactivity with other substances can occur with immunoassay screening. Detection of any drug(s) in this urine toxicology panel is presumptive only. These tests are for medical purposes only and should not be used for compliance monitoring, legal, or forensic use.In clinical settings, confirmatory testing is at the practitioner's discretion [1]. If clinically indicated, confirmation by high specificity, quantitative methodology may be requested on the same specimen through Client Services ([phone]) if contacted within 48 hours of initial testing.[1]Substance Abuse and Mental Health Services Administration (2012). Clinical Drug Testing in Primary Care Technical Assistance Publication Series 32. Department of Health and Human Services, [place], p.10. Performed By: #### U A, UTOX2 ####[place] [address] Phencyclidine, Urine Negative Normal Negative [facility] Comment on above: Result Comment: Cuto ff threshold at 25 ng/mL. Performed By: #### U A UTOX2 ####[place] [address] Urinalysison 10-21-2017 Bilirubin, Urine Negative Normal Negative [facility] Comment on above: Performed By: #### U A UTOX2 ####[place] [address] Hemoglobin mass conc (Bld) Negative Normal Negative [facility] Comment on above: Performed By: #### U A UTOX2 ####[place] [address] Leukest Negative Normal Negative [facility] Comment on above: Performed By: #### U A, UTOX2 ####[place] [address] pH of blood 6.5 [pH] Normal 5.0-8.0 [facility] Comment on above: Performed By: #### U A, UTOX2 ####[place] [address] Protein, Urine Negative Normal Negative [facility] Comment on above: Performed By: #### U A, UTOX2 ####[place] [address] Specific [place], Ur 1.020 Normal 1.001-1 .02 9 [facility] Comment on above: Performed By: #### U A UTOX2 ####[facility] [id number] [place] [address] Urine, clarity Clear Normal Clear [facility] Comment on above: Performed By: #### U A, UTOX2 ####[facility] [address] [place] [address] Urine, color Yellow Normal Yellow [facility] Comment on above: Performed By: #### U A, UTOX2 ####[facility] [id number] [place] [address] Urine, glucose presence Negative Normal Negative [facility] Comment on above: Performed By: #### U A, UTOX2 ####[facility] [id number] [place] [address] Urine, ketones presence Negative Normal Negative [facility] Comment on above: Performed By: #### U A, UTOX2 ####[facility] [id number] [place] [address] Urine, nitrite presence Negative Normal Negative [facility] Comment on above: Performed By: #### U A, UTOX2 ####[facility] [address] [place] [address] Urine, urobilinogen 1 Normal 0.2-1.0 [facility] Comment on above: Performed By: #### U A, UTOX2 ####[facility] [id number] [place] [address] CHEST 2 VIEW PA AND LATon CHEST 2 VIEW PA AND LAT Name: DAVID MUNOZ STUDY: CHEST 2 VIEW PA AND LAT; 07/28/2017 11:30 am INDICATION:Signs/Symptoms: cough, shortness of breath, hand and finger pain. COMPARISON:None. ORDERING CLINICIAN:NATALIE BAKER FINDINGS: CARDIOMEDIASTINAL SILHOUETTE:Cardiomediastinal silhouette is normal in size and configuration. LUNGS:No focal infiltrates or effusions are identified. ABDOMEN:No remarkable upper abdominal findings. BONES:No acute osseous changes. IMPRESSION:1. No evidence of acute cardiopulmonary process.Electronically signed by: SALLY MCDONALD MD Normal [facility] HAND, MIN 3 VIEWSon 07-28-20 17 HAND, MIN 3 VIEWS Name: DAVID MUNOZ STUDY:BN HAND; MIN 3 VIEWS; 07/28/2017 11:30 am INDICATION:Signs/Symptoms: cough, shortness of breath, hand and finger pain. COMPARISON:None. ORDERING CLINICIAN:NATALIE BAKER FINDINGS:Bilateral hand series for total of 6 views demonstrates normalalignment without evidence of fracture or subluxation. The softtissues and osseous structures appear normal. There are no lytic orsclerotic lesions identified. IMPRESSION:Normal bilateral hand series. Electronically signed by: MARLEN CALLAHAN, DO Normal [facility] Vital Signs Date Time Vital Sign Value Performing Clinician Josette hansen 02-07-2025 08:30-0400 Body height 182.9 cm Zhanna Christy APRN.C SCRAP DROP CRANE OPERATOR Work Phone: [facility] 02-07-2025 08:30-0400 Body mass index (BMI) [Ratio] 26.85 kg/m2 Zhanna Christy APRN.AIRCRAFT PNEUDRAULIC SYSTEMS MECHANIC Work Phone: [facility] 02-07-2025 08:30-0400 Body weight 89.81 kg Zhanna Christy APRNKearaC SCRAP DROP CRANE OPERATOR Work Phone: [facility] 02-07-2025 08:30-0400 Heart rate 78 /min Zhanna Christy APRN.C SCRAP DROP CRANE OPERATOR Work Phone: [facility] 02-07-2025 08:30-0400 SaO2% (BldA) [Mass fraction] 98 % Zhanna Christy APRN.AIRCRAFT PNEUDRAULIC SYSTEMS MECHANIC Work Phone: [facility] 01-20-2025 09:37-0400 Body height 182.9 cm Salvatore Maier MD Work Phone: [facility] 01-20-2025 09:37-0400 Body mass index (BMI) [Ratio] 26.98 kg/m2 Salvatore Maier MD Work Phone: [facility] 01-20-2025 09:37-0400 Body weight 90.27 kg Salvatore Maier MD Work Phone: [facility] 01-20-2025 09:37-0400 Heart rate 87 /min Salvatore Maier MD Work Phone: [facility] 01-20-2025 09:37-0400 SaO2% (BldA) [Mass fraction] 100 % Salvatore Maier MD Work Phone: [facility] 01-06-2025 11:19-0400 Body height 182.9 cm Salvatore Maier MD Work Phone: [facility] 01-06-2025 11:19-0400 Body mass index (BMI) [Ratio] 26.98 kg/m2 Salvatore Maier MD Work Phone: [facility] 01-06-2025 11:19-0400 Body weight 90.27 kg Salvatore Maier MD Work Phone: [facility] 01-06-2025 11:19-0400 Heart rate 82 /min Salvatore Maier MD Work Phone: [facility] 01-06-2025 11:19-0400 SaO2% (BldA) [Mass fraction] 96 % Salvatore Maier MD Work Phone: [facility] 12-23-2024 09:33-0400 Body height 182.9 cm Salvatore Maier MD Work Phone: [facility] 12-23-2024 09:33-0400 Body mass index (BMI) [Ratio] 26.98 kg/m2 Salvatore Maier MD Work Phone: [facility] 12-23-2024 09:33-0400 Body weight 90.27 kg Salvatore Maier MD Work Phone: [facility] 12-23-2024 09:33-0400 Heart rate 88 /min Salvatore Maier MD Work Phone: [facility] 12-23-2024 09:33-0400 SaO2% (BldA) [Mass fraction] 97 % Salvatore Maier MD Work Phone: [facility] Encounters Encounter Date Encounter Type Care Provider Facility Start: 02-10-2025 ambulatory [facility] Ph[facility] ty:[facility] Start: 02-07-2025 End: 02-07-2025 Patient encounter procedure Zhanna Christy WESLEY Work Phone: [facility] Comment on above: Status post surgery (Primary Dx); Pain in left elbow; Wound infection after surgery; Status post open reduction and internal fixation (ORIF) of fracture; Olecranon fracture, left, closed, initial encounter Start: 02-07-2025 End: 02-07-2025 ambulatory ZHANNA CHRISTY Facility:[id number] Start: 02-03-2025 End: 02-03-[address] Rio Means MD -Medical Out Work Phone: Start: 02-03-2025 End: 02-03-[address] Andrei Chisholm MD Work Phone: [facility] Work Phone: Start: 01-24-2025 End: 01-28-2025 Evaluation and management of inpatient SALVATORE MAIER Facility:[id number] Start: 01-23-2025 Patient encounter status Tenisha Maier MD Work Phone: [facility] Work Phone: Start: 01-20-2025 End: 01-29-2025 Telephone encounter Salvatore Maier MD Work Phone: [facility] Comment on above: Preparations For [facility] Start: 01-20-2025 End: 01-20-2025 Patient encounter procedure Salvatore Maier MD Work Phone: [facility] Comment on above: Olecranon fracture, left, closed, initial encounter (Primary Dx); Wound infection after surgery Olecranon fracture, left, closed, initial encounter (Primary Dx) Start: 01-20-2025 End: 01-20-2025 ambulatory SALVATORE MAIER Facility:[id number] Start: 01-20-2025 End: 01-20-2025 Subsequent hospital visit by physician Xr [facility] [facility] Comment on above: Olecranon fracture, left, closed, initial encounter [S52.022A] Start: 01-17-2025 End: 01-17-2025 E-mail encounter from caregiver Salvatore Maier MD Work Phone: [facility] Start: 01-17-2025 End: 01-17-2025 Patient encounter procedure Salvatore Maier MD Work Phone: [facility] Comment on above: x-rays Start: 01-17-2025 End: 01-17-2025 Telephone encounter Salvatore Maier MD Work Phone: [facility] Comment on above: Appointment (Xay rem ind for 01-20-25) Start: 01-06-2025 End: 01-06-2025 ambulatory SALVATORE MAIER Facility:[id number] Start: 01-06-2025 End: 01-06-2025 Patient encounter procedure Salvatore Maier MD Work Phone: [facility] Comment on above: Olecranon fracture, left, closed, initial encounter (Primary Dx) Start: 01-06-2025 ambulatory SEDA BELLO Facility: [id number] Start: 01-06-2025 End: 01-06-2025 Subsequent hospital visit by physician Xr [facility] Comment on above: Olecranon fracture, left, closed, initial encounter [S52.022A] Start: 01-02-2025 End: 01-02-2025 Telephone encounter Salvatore Maier MD Work Phone: [facility] Comment on above: Appointment (Adalid re mind for 01-06-25) Start: 12-23-2024 End: 12-23-2024 Patient encounter procedure Salvatore Maier MD Work Phone: [facility] Comment on above: Olecranon fracture, left, closed, initial encounter (Primary Dx) Start: 12-23-2024 End: 12-23-2024 ambulatory SALVATORE MAIER Facility:[id number] Start: 12-23-2024 End: 12-23-2024 Subsequent hospital visit by physician Xr [facility] Comment on above: Olecranon fracture, left, closed, initial encounter [S52.022A] Start: 12-20-2024 End: 12-20-2024 Telephone encounter Salvatore Maier MD Work Phone: [facility] Comment on above: Appointment (Xray re mind) Start: 12-12-2024 End: 12-14-2024 Evaluation and management of inpatient DAVID CABAN Facility:[id number] Start: 10-21-2017 End: 10-21-2017 Emergency department patient visit NINA CALLAHAN [facility] Start: 07-28-2017 Ambulatory NATALIE BAKER Facility:[facility] Tawana Procedures Date Procedure Procedure Detail Performing Clinician Start: 12-12-2024 Antibody screen DAVID CABAN Comment on above: Order Comment: Speci men Type: BLOOD SPECIMEN Ordering Facility: [facility] Address: [address] [place] [address] Performed By: #### L [id number], TSCR #### [facility] CLIA [id number] [address] [place] [address] [place] H/O: surgery Status post surgery Zhanna holcomb APRN.[employer]IRCRAFT PNEUDRAULIC SYSTEMS MECHANIC Work Phone: History of Cholecyst ectomy Laparoscopic Natalie Baker DO Plan of Treatment Date Care Activity Detail Author Start: 05-17-2031 Urine microalbumin profile DTaP,Tdap,Td Vaccine (7 - Td or Tdap) [facility] Start: 04-21-2025 Influenza vaccination Influenz a Vaccine (Season Ended) [facility] Start: 02-24-2025 End: 02-24-2025 Patient encounter procedure 02/24/2025 3:00 PM EDT Office Visit [facility] [address] [place] [address] Zhanna Christy APRN.AIRCRAFT PNEUDRAULIC SYSTEMS MECHANIC [address] [place] [address] 2 WEEK FOLLOW UP LEFT ELBOW [facility] Comment on above: 2 WEEK FOLLOW UP LEF T ELBOW Start: 02-07-2025 End: 02-07-2025 Patient encounter procedure 02/07/2025 8:45 AM EDT Office Visit [facility] [address] [place] [address] Zhanna Christy APRN.AIRCRAFT PNEUDRAULIC SYSTEMS MECHANIC [address] [facility] [address] [place] [address] s/p I&D Lt elbow post op wound infection [facility] Comment on above: s/p I&D Lt elbow pos t op wound infection Start: 2025 End: 2025 ambulatory 2025 2:00 PM EDT OT/PT/Speech Visit [facility] [address] [place] [address] Tonya Javier, PT Dx: Olecranon fracture, left, closed, initial encounter [S52.022A] [facility] Comment on above: Dx: Olecranon fractu re, left, closed, initial encounter [S52.022A] Start: 2025 Lipid panel Lipid Screening [facility] Start: 01-24-2025 Subsequent hospital visit by physician 01/24/2025 Hospital Encounter [facility] [address] [facility] [place] [address] Salvatore Maier MD [address] [place] [address] Olecranon fracture, left, closed, initial encounter [S52.022A] [facility] Comment on above: Olecranon fracture, left, closed, initial encounter [S52.022A] Start: 01-20-2025 End: 01-20-2025 Patient encounter procedure 01/20/2025 10:00 AM EDT Office Visit [facility] [place] [address] Salvatore Maier MD [address] [place] [address] 2 wk follow up [facility] Comment on above: 2 wk follow up [facility] Start: 01-06-2025 End: 01-06-2025 Patient encounter procedure [facility] Comment on above: post op 2 week follo w upleft elbow need xrays [facility] post op 2 week f ollow upleft elbow need xrays Start: 12-23-2024 End: 12-23-2024 Patient encounter procedure 12/23/2024 10:00 AM EDT Office Visit [facility] [address] [place] [address] Salvatore Maier MD [address] [place] [address] POSTOP left elbow [facility] Comment on above: POSTOP left elbow Start: 04-21-2024 Covid-19 Vaccine ( season) Covid-19 Vaccine ( season) [facility] Start: 2009 Hepatitis B Vaccine (1 of 3 - 19+ 3-dose series) Hepatitis B Vaccine (1 of 3 - 19+ 3-dose series) [facility] Start: 01-28-2008 Anxiety Screening Anxiety Screening [facility] Start: 01-28-2008 [facility] Start: 01-28-2008 Hepatitis C screening Hepatitis C [facility] Incision & drainage complex po wound infection INCISION AND DRAINAGE POST OP INFECTION UPPER EXTREMITY Olecranon fracture, left, closed, initial encounter MR OR End: 01-17-2026 XR Elbow - left AP and Lateral XR ELBOW GENERAL 2V AP/LAT LEFT Radiology Routine Olecranon fracture, left, closed, initial encounter 1 Occurrences starting 12/18/2024 until 01/17/[address] [facility] Work Phone: Comment on above: 1 Occurrences starti ng 12/18/2024 until 01/17/2026 XR Elbow - left AP a nd Lateral XR ELBOW GENERAL 2V AP/LAT LEFT Radiology Routine Olecranon fracture, left, closed, initial encounter 12/23/2024 9:32 AM EDT [facility] End: 01-30-2026 XR Elbow - left AP and Lateral XR ELBOW GENERAL 2V AP/LAT LEFT Radiology Routine Olecranon fracture, left, closed, initial encounter 1 Occurrences starting 12/31/2024 until 01/30/[address] [facility] Work Phone: Comment on above: 1 Occurrences starti ng 12/31/2024 until 01/30/2026 End: 02-14-2026 XR Elbow - left AP and Lateral XR ELBOW GENERAL 2V AP/LAT LEFT Radiology Routine Olecranon fracture, left, closed, initial encounter 1 Occurrences starting 01/15/2025 until 02/14/[address] [facility] Work Phone: Comment on above: 1 Occurrences starti ng 01/15/2025 until 02/14/2026 XR Elbow - left AP a nd Lateral XR ELBOW GENERAL 2V AP/LAT LEFT Radiology Routine Olecranon fracture, left, closed, initial encounter 01/20/2025 9:28 AM EDT [facility] End: 03-09-2026 XR Elbow - left AP and Lateral XR ELBOW GENERAL 2V AP/LAT LEFT Radiology Routine Status post surgery 1 Occurrences starting 02/07/2025 until 03/09/[address] [facility] Work Phone: Comment on above: 1 Occurrences starti ng 02/07/2025 until 03/09/2026 Immunizations Immunization Date Immunization Notes Care Provider [facility] 04-12-1995 diphtheria, tetanus toxoids and acellular pertussis vaccine Salvatore Maier MD Work Phone: [facility] 04-12-1995 haemophilus influenz ae type b vaccine, HbOC conjugate Salvatore Maier MD Work Phone: [facility] 04-12-1995 trivalent poliovirus vaccine, live, oral Salvatore Maier MD Work Phone: [facility] 06-12-1993 diphtheria, tetanus toxoids and acellular pertussis vaccine Salvatore Maier MD Work Phone: [facility] 06-12-1993 haemophilus influenz ae type b vaccine, HbOC conjugate Salvatore Maier MD Work Phone: [facility] 06-12-1993 trivalent poliovirus vaccine, live, oral Salvatore Maier MD Work Phone: [facility] 05-23-1991 haemophilus influenz ae type b vaccine, HbOC conjugate Salvatore Maier MD Work Phone: [facility] 05-23-1991 measles, mumps and rubella virus vaccine Salvatore Maier MD Work Phone: [facility] 05-23-1991 tuberculin skin test ; purified protein derivative solution, intradermal Salvatore Maier MD Work Phone: [facility] 1990 diphtheria, tetanus toxoids and acellular pertussis vaccine Salvatore Maier MD Work Phone: [facility] 1990 haemophilus influenz ae type b vaccine, HbOC conjugate Salvatore Maier MD Work Phone: [facility] 1990 diphtheria, tetanus toxoids and acellular pertussis vaccine Salvatore Maier MD Work Phone: [facility] 1990 trivalent poliovirus vaccine, live, oral Salvatore Maier MD Work Phone: [facility] 1990 diphtheria, tetanus toxoids and acellular pertussis vaccine Salvatore Maier MD Work Phone: [facility] 1990 trivalent poliovirus vaccine, live, oral Salvatore Maier MD Work Phone: [facility] Payers Date Payer Category Payer Self-pay 2024 Government (not [facility] care or Medicaid) [id number] 2024 [facility] [id number] Private Health Insurance [id number] Self-pay S[employer] INSURANCE [id number] Unknown [id number] Unknown [id number] Social History Date Type Detail Facility Start: 02-26-2014 End: 01-22-2025 Tobacco smoking status NHIS Ex-smoker [facility] History of tobacco use Current smoker [facility] History of tobacco use Cigar Smoker [facility] Start: 02-26-2014 Tobacco use and exposure Smoke less tobacco non-user [facility] Start: 12-13-2024 End: 02-07-2025 Alcoholic beverage intake Current non-drinker of alcohol (finding) [facility] Start: 12-13-2024 End: 01-20-2025 History of Social function [facility] Start: 12-13-2024 End: 01-20-2025 [facility] Koogame [facility] Has the [employer], or [employer] threatened to shut off services in your home in past 12Mo No [facility] (I/We) worried [facility] (my/our) food would run out before (I/we) got money to buy more. Never true [facility] In the past 12 month s, has lack of transportation kept you from medical appointments or from getting medications? No [facility] Start: 1990 Sex assigned at Not on file C [facility] Start: 01-19-2018 [facility] smoking consumption unknown (finding) [facility] Start: 1990 Sex Assigned At Male W [facility] History of tobacco use Cigarette Smoker C [facility] Start: 01-22-2025 Tobacco use and exposure User of smokeless tobacco [facility] History of tobacco use Chews Tobacco [facility] Start: 01-22-2025 Tobacco Comment Quit smoking 2 017. Now uses the spitless nicotine pouches. [facility] NEGATED: Highlighted row - - [facility] Work Phone: Medical Equipment Procedure Code Equipment Code Equipment Origin al Text Equipment Identifier Dates Plate Lcp Stainl ess Steel 90mm Bone 2 Hole Variable Angle 2.7/3.5mm Screw - [id number] Start: 12-13-2024 Screw Lcp 2.7mm T8 Stainless Steel 50mm Bone Variable Angle Lock Self Tap - [id number] Start: 12-13-2024 Screw Lcp 2.7mm T8 Stainless Steel 22mm Bone Stardrive Self Tap Modular - [id number] Start: 12-13-2024 Screw Lcp 2.7mm T8 Stainless Steel 20mm Bone Variable Angle Lock Self Tap - [id number] Start: 12-13-2024 Screw Lcp 2.7mm T8 Stainless Steel 44mm Bone Variable Angle Lock Self Tap - [id number] Start: 12-13-[address] ar 2.7 X 20mm - [id number] Start: 12-13-2024 Screw Lcp 2.7mm T8 Stainless Steel 32mm Bone Variable Angle Lock Self Tap - [id number] Start: 12-13-2024 Screw Lcp Dcp 2. 7mm Stainless Steel 22mm Bone Self Tapping Mini/Small - [id number] Start: 12-13-2024 Screw Dcp Lc-Dcp 3.5mm Stainless Steel 28mm Bone Self Tapping Hexagonal - [id number] Start: 12-13-2024 Screw Lcp 3.5mm Stainless Steel 24mm Bone Self Tapping Small Fragment - [id number] Start: 12-13-2024 Screw Lcp T8 Stainless Steel 50mm Bone Self Tap [employer]rive Low Profile 2.7mm - [id number] Start: 12-13-2024 Screw Lcp 2.7mm T8 Stainless Steel 42mm Bone Self Tap St[employer]rive Low Profile - [id number] Start: 12-13-2024 Functional Status Date Assessment Result Facility 01-28-2025 Are you deaf, or do you have serious difficulty hearing No 01/28/2025 5:35 PM Stacia Evans RN No [facility] 01-28-2025 Are you blind, or do you have serious difficulty seeing, even when wearing glasses No 01/28/2025 5:35 PM Stacia Evans RN No [facility] 01-28-2025 Do you have serious difficulty walking or climbing stairs No 01/28/2025 5:35 PM Stacia Evans RN No [facility] 01-28-2025 Do you have difficul ty dressing or bathing No 01/28/2025 5:35 PM Stacia Evans RN No [facility] 01-28-2025 Because of a physica l, mental, or emotional condition, do you have difficulty doing errands alone such as visiting a physician's office or shopping No 01/28/2025 5:35 PM Stacia Evans RN No [facility] 12-14-2024 Are you deaf, or do you have serious difficulty hearing No 12/14/2024 9:17 AM Ced Swasnon RN No [facility] 12-14-2024 Are you blind, or do you have serious difficulty seeing, even when wearing glasses No 12/14/2024 9:17 AM Ced Swanson RN No [facility] 12-14-2024 Do you have serious difficulty walking or climbing stairs No 12/14/2024 9:17 AM Ced Swanson RN No [facility] 12-14-2024 Do you have difficul ty dressing or bathing No 12/14/2024 9:17 AM Ced Swanson RN No [facility] 12-14-2024 Because of a physica l, mental, or emotional condition, do you have difficulty doing errands alone such as visiting a physician's office or shopping No 12/14/2024 9:17 AM Ced Swanson RN [facility] NEGATED: Highlighted row Functional performance Functional status health issues are not documented Disease [facility] Work Phone: Mental Status Date Assessment Result Facility 01-28-2025 Because of a physical, mental, or emotional condition, do you have serious difficulty concentrating, remembering, or making decisions No 01/28/2025 5:35 PM Stacia Evans RN No [facility] 12-14-2024 Because of a physical, mental, or emotional condition, do you have serious difficulty concentrating, remembering, or making decisions No 12/14/2024 9:17 AM EDT Ced Levy RN No [facility] NEGATED: Highlighted row Cognitive function [Interpretation] Cognitive status health issues are not documented Disease [facility] Work Phone: Clinical Notes 12-12-2024 to 02-07-2025 Patient InstructionsZhanna Christy APRN.CNP - 02/07/2025 9:07 AM EDTTelephone Encounter - Luisa Appiah LPN - 01/20/2025 1:12 PM EDTSalvatore Maier MD - 01/20/2025 11:20 AM EDT Note Date & Type Note Facility 02-07-2025 Instructions Zhanna Christy APRN.CNP - 02/07/2025 9:55 AM EDT - Continue your IV antibiotics for the full 6-week course, finishing on 03/07, unless directed otherwise. - Your sutures have been removed; leave the incision open to air unless you notice any leaking. - Do not apply lotions, creams, or ointments to the incision site. - Use the provided island (adhesive) dressings only if you re outdoors or concerned about getting the incision dirty; discard and replace as needed. - Gently move your fingers, wrist, and elbow throughout the day; using a stress ball can help relieve numbness or tingling. - You may begin light tasks (holding a toothbrush, coffee cup) but avoid lifting more than 5 pounds and do not bear weight on your elbow for at least two more weeks. - Hold off on scheduling formal physical therapy until after your next visit; we can help you book quickly when you re ready. - If your hand or finger numbness and shaking persist, we can refer you to occupational therapy for specialized nerve and hand exercises. - Schedule a follow-up appointment in 2 weeks for a wound check and elbow X-ray; at that visit we ll reassess healing, review the X-ray, and discuss progressing to weight-bearing and starting physical therapy. documented in this encounter [facility] 02-07-2025 Note HNO ID: [id number] Author: ZHANNA CHRISTY APRN.[employer] MECH[employer]IC Service: ? Author Type: Nurse Practitioner Type: Progress Notes Filed: 02/07/2025 09:57 Note Text: SERVICE DATE: February 07, 2025 PCP: [facility] Subjective Patient ID: David Munoz is a 35-year-old male presenting for follow-up of a left elbow wound. Left Elbow Wound: - Wound is healing well, but machine tender at times. - Not weight-bearing; moving the elbow more but avoiding lifting. - Concerned about previous infection. - Noticed finger tremors post-surgery; describes difficulty keeping fingers still. - Denies wound leakage. - Using long, Island dressings, causing discomfort due to hair removal. - Girlfriend, a nurse, assists with wound care. -denies fever/chills Headaches: - Onset pre-infection; occurring every other day. Now less often, in temples. - Located above the temples and on the top of the head. - Alleviated with ibuprofen/tylenol. Chief Complaint Left Elbow - Post Op PAIN EVALUATION 02/07/2025 0831 Pain Level: 3 Pain Location: Elbow-Left Description: Tenderness Duration Amount of Time: 12 Duration Units: Days Frequency: Intermittent HPI Review of Systems ACTIVE PROBLEM LIST Chondromalacia of Patella PAIN LOW BACK Pain in Joint, Pelvic Region and Thigh Acute Cholecystitis Overweight (Bmi 25.0-29.9) Trauma Olecranon Fracture, Left, Closed, Initial Encounter Nondisplaced Fracture of Coronoid Process of Left Ulna, Initial Encounter for Closed Fracture Left Radial Head Fracture Preop Testing Closed Comminuted Fracture of Proximal End of Left Ulna, Sequela PAST MEDICAL HISTORY Diagnosis Date History of blood clotting factor deficiency grandmother and mom have factor 5 Pure hypercholesterolemia no meds PAST SURGICAL HISTORY Procedure Laterality Date LAPS SURG CHOLECYSTECTOMY W/CHOLANGIOGRAPHY 01/14/2011 Normal IOC, Acute cholecystitis TREAT ULNAR FRACTURE Left 12/13/2024 FAMILY HISTORY Problem Relation Age of Onset Cancer Other uterine Cancer Other Diabetes Maternal Grandmother other (increased chol [Other]) Other mother Social History Tobacco Use Smoking status: Former Types: Cigarettes Smokeless tobacco: Current Types: Chew Tobacco comments: Quit smoking 2017. Now uses the [employer] nicotine pouches. Vaping Use Vaping status: Former Substance Use Topics Alcohol use: No Drug use: Never ALLERGIES Allergen Reactions Amoxicillin Rash Morphine Hives MEDICATIONS: traMADol 100 mg tablet Take 100 mg by mouth every 6 hours as needed for pain. ibuprofen (MOTRIN) 800 mg tablet Take 1 tablet by mouth every 8 hours as needed for pain. ibuprofen (MOTRIN IB) 200 mg tablet Take 200 mg by mouth every 6 hours as needed for pain. Last dose 01/22/25. predniSONE (DELTASONE) 10 mg tablet Take 1 tablet by mouth once daily. TID x 3 days, BID x 3 days, Daily x 3 days. (Patient not taking: Reported on 02/07/2025) multivit-min/ferrous fumarate (MULTI VITAMIN ORAL) Take by mouth. (Patient not taking: Reported on 02/07/2025) gabapentin (NEURONTIN) 300 mg capsule Take 1 capsule by mouth once daily for 5 doses. (Patient taking differently: Take 300 mg by mouth once daily. No longer on pacc call 01/22/25) Allergies, medications, past surgical history, family history and past medical history were reviewed per this encounter. Objective Ortho Exam Musculoskeletal: (+) elbow tenderness Skin: (-) forearm rash on exam, (+) bilateral arm pruritus with antibiotic infusion, (-) wound drainage Neurological: (+) finger tremor, (-) elbow tremor, (+) headaches - Musculoskeletal: - Elbow: Wound healing well, no signs of infection, mild tenderness noted. Assessment/Plan ASSESSMENT Diagnosis (Z98.890) Status post surgery (primary encounter diagnosis) Plan: XR ELBOW GENERAL 2V AP/LAT LEFT Office Visit on 02/07/25 XR ELBOW GENERAL 2V AP/LAT LEFT Procedures PLAN Assessment AND Plan Status post surgery Pain in left elbow Wound infection after surgery Status post open reduction and internal fixation (ORIF) of fracture 1. Status post surgery (Z98.890) 2. Wound infection after surgery (T81.49XA) 3. Ulna fracture (ORIF), left, closed - Surgical site healing well; area over the elbow, typically the last to heal due to frequent movement, is progressing satisfactorily. - Sutures removed; no signs of purulent discharge or significant edema/erythema. - No need for wound dressing unless exudate is present; advised to leave the wound open to air and avoid application of lotions, creams, or ointments. - Scheduled follow-up in 2 weeks to assess wound healing and discuss progression to weight-bearing activities. - Ordered X-ray to be performed prior to the next appointment to evaluate bone healing and hardware integrity. - Continue current antibiotic regimen for a total of 6 weeks; expected completion date is 03/07. 4. Pain in left (more content not included)... [facility] 02-07-2025 History of Presen t illness Narrative SERVICE DATE: February 07, 2025 PCP: [facility] Subjective Patient ID: David Munoz is a 35-year-old male presenting for follow-up of a left elbow wound. Left Elbow Wound: - Wound is healing well, but machine tender at times. - Not weight-bearing; moving the elbow more but avoiding lifting. - Concerned about previous infection. - Noticed finger tremors post-surgery; describes difficulty keeping fingers still. - Denies wound leakage. - Using long, Island dressings, causing discomfort due to hair removal. - Girlfriend, a nurse, assists with wound care. -denies fever/chills Headaches: - Onset pre-infection; occurring every other day. Now less often, in temples. - Located above the temples and on the top of the head. - Alleviated with ibuprofen/tylenol. Chief Complaint Left Elbow - Post Op PAIN EVALUATION 02/07/2025 0831 Pain Level: 3 Pain Location: Elbow-Left Description: Tenderness Duration Amount of Time: 12 Duration Units: Days Frequency: Intermittent HPI Review of Systems ACTIVE PROBLEM LIST Chondromalacia of Patella PAIN LOW BACK Pain in Joint, Pelvic Region and Thigh Acute Cholecystitis Overweight (Bmi 25.0-29.9) Trauma Olecranon Fracture, Left, Closed, Initial Encounter Nondisplaced Fracture of Coronoid Process of Left Ulna, Initial Encounter for Closed Fracture Left Radial Head Fracture Preop Testing Closed Comminuted Fracture of Proximal End of Left Ulna, Sequela PAST MEDICAL HISTORY Diagnosis Date History of blood clotting factor deficiency grandmother and mom have factor 5 Pure hypercholesterolemia no meds PAST SURGICAL HISTORY Procedure Laterality Date LAPS SURG CHOLECYSTECTOMY W/CHOLANGIOGRAPHY 01/14/2011 Normal IOC, Acute cholecystitis TREAT ULNAR FRACTURE Left 12/13/2024 FAMILY HISTORY Problem Relation Age of Onset Cancer Other uterine Cancer Other Diabetes Maternal Grandmother other (increased chol [Other]) Other mother Social History Tobacco Use Smoking status: Former Types: Cigarettes Smokeless tobacco: Current Types: Chew Tobacco comments: Quit smoking 2017. Now uses the [employer] nicotine pouches. Vaping Use Vaping status: Former Substance Use Topics Alcohol use: No Drug use: Never ALLERGIES Allergen Reactions Amoxicillin Rash Morphine Hives MEDICATIONS: traMADol 100 mg tablet Take 100 mg by mouth every 6 hours as needed for pain. ibuprofen (MOTRIN) 800 mg tablet Take 1 tablet by mouth every 8 hours as needed for pain. ibuprofen (MOTRIN IB) 200 mg tablet Take 200 mg by mouth every 6 hours as needed for pain. Last dose 01/22/25. predniSONE (DELTASONE) 10 mg tablet Take 1 tablet by mouth once daily. TID x 3 days, BID x 3 days, Daily x 3 days. (Patient not taking: Reported on 02/07/2025) multivit-min/ferrous fumarate (MULTI VITAMIN ORAL) Take by mouth. (Patient not taking: Reported on 02/07/2025) gabapentin (NEURONTIN) 300 mg capsule Take 1 capsule by mouth once daily for 5 doses. (Patient taking differently: Take 300 mg by mouth once daily. No longer on pacc call 01/22/25) Allergies, medications, past surgical history, family history and past medical history were reviewed per this encounter. Objective Ortho Exam Musculoskeletal: (+) elbow tenderness Skin: (-) forearm rash on exam, (+) bilateral arm pruritus with antibiotic infusion, (-) wound drainage Neurological: (+) finger tremor, (-) elbow tremor, (+) headaches - Musculoskeletal: - Elbow: Wound healing well, no signs of infection, mild tenderness noted. Assessment/Plan ASSESSMENT Diagnosis (Z98.890) Status post surgery (primary encounter diagnosis) Plan: XR ELBOW GENERAL 2V AP/LAT LEFT Office Visit on 02/07/25 XR ELBOW GENERAL 2V AP/LAT LEFT Procedures PLAN Assessment & Plan Status post surgery Pain in left elbow Wound infection after surgery Status post open reduction and internal fixation (ORIF) of fracture 1. Status post surgery (Z98.890) 2. Wound infection after surgery (T81.49XA) 3. Ulna fracture (ORIF), left, closed - Surgical site healing well; area over the elbow, typically the last to heal due to frequent movement, is progressing satisfactorily. - Sutures removed; no signs of purulent discharge or significant edema/erythema. - No need for wound dressing unless exudate is present; advised to leave the wound open to air and avoid application of lotions, creams, or ointments. - Scheduled follow-up in 2 weeks to assess wound healing and discuss progression to weight-bearing activities. - Ordered X-ray to be performed prior to the next appointment to evaluate bone healing and hardware integrity. - Continue current antibiotic regimen for a total of 6 weeks; expected completion date is 03/07. 4. Pain in left elbow (M25.522) - Intermittent tenderness noted; advised to avoid weight-bearing activities for at least 2 more weeks to ensure complete healing of the skin and underlying structures. - Permitted to perform light activities such as holding a toothbrush or coffee cup, but avoid lifting objects heavier than 5 pounds. - Postponed initiation of physical therapy until the next follow-up to prevent premature stress on the healing site. - Experiencing mild tremors in fingers, likely due to residual swelling and nerve compression; recommended regular movement of wrist and fingers to alleviate symptoms. - Consider referral to occupational therapy if tremors persist. - Advised use of a stress ball to improve circulation and reduce nerve compression symptoms. - Continue use of acetaminophen for pain management as needed, continue with tramadol for moderate pain. -Declined refill. FOLLOW-UP: No follow-ups on file. Recording using [employer] software for draft documentation of the visit was discussed with the patient/authorized customer support representative; all questions welcomed and answered. Patient/authorized customer support representative agreed to proceed. SIGNATURE: Zhanna Christy APRN.CNP PATIENT NAME: David Munoz DATE: February 07, 2025 TIME: 9:07 AM documented in this encounter [facility] 01-28-2025 Note HNO ID: [id number] Author: MELISSA STEVENSON RN Service: Care Management Author Type: Registered Nurse Type: Care Mgt Progress Note Filed: 01/28/2025 12:28 Note Text: CARE MANAGEMENT DISCHARGE NOTE SERVICE DATE: January 28, 2025 SERVICE TIME: 12:23 PM Admission Date: 01/24/2025 LOS: 4 days Discharge Arrangement Discharge Arrangement: Home with Self Care (girlfriend and children) Services Arranged Provider Name: Dr. Salvatore Maier Caregiver Assessment Caregiver is ready, willing and able to meet the patient's needs as recommended by the inter-professional team: Yes Name of Caregiver: Girlfriend is nurse, willing and able to provide help as needed Transportation Arrangements Transportation Arrangements: Car Destination: home, [address] [place] [address] Handoff Communication: Handoff to: Primary Care Physician Primary Care Physician Name/Phone: [facility] Additional Information: Patient medically ready for discharge as per ID and ortho team. Patient has PICC in place (2025). IVAB script written (2025 by ID). Patient received bedside teach by [facility]. Signed and approved C9 received from Betito Ken P: [phone] F: [phone]. Sent approved C9 to [facility] as well as to [facility] infusion center p: [phone] F: [phone]. Patient to receive his next dose of IVAB in hospital and then can d.c home, will have IVAB delivered by EOD as per [facility]. Patient asked about what do with vac, explained should remain in place for 7-10 days, notified nursing of patient questions as well so that education can be provided to patient and his girlfriend. Will have transport to home. No further needs from Cm. To return home with girlfriend and family. To do IVAB independently at home, supplied from [facility] home infusion, will go to [facility] for lab work and picc care weekly, starting 02/03/2025. Case closed. Discharge Information Row Name Admission (Current) from 01/24/2025 in MR 5B MED/SURG Medical Follow-Up Appointment Specialty Primary Care Provider Additional Instructions If you desire to set up a new primary care physician appointment this number can assist with making appointment with insurance. Medical Follow-Up Appointment Specialty Outpatient Infusion Center Provider Name [facility] Address [address] [place] [address], [place], [place] [address] Phone Number [phone] Appointment Date 02/03/25 Appointment Time 1:30pm Additional Instructions Enter behind [employer], at outpatient [place] on ground level and turn left. Please bring insurance and photo ID. At this appointment your subsequent appointments will be scheduled for lab work and PICC care weekly until end of treatment 03/07/2025. Home [facility]fusion [facility] Phone/ Start of Care 01/28/25 Will deliver all supplies needed for antibiotics at home by end of day today 01/28/2025. SIGNATURE: Melissa Stevenson RN PATIENT NAME: David Munoz DATE: January 28, 2025 TIME: 12:22 PM [facility] 01-28-2025 Note HNO ID: [id number] Author: MELISSA STEVENSON RN Service: Care Management Author Type: Registered Nurse Type: Care Mgt Progress Note Filed: 01/28/2025 12:10 Note Text: CARE MANAGEMENT PROGRESS NOTE SERVICE DATE: 01/28/2025 SERVICE TIME: 8:45 AM LOS: 4 days Called Suellen from [facility] to confirm that C9 is being worked on, she states she never received the C9. Refaxed at this time, confirmed fax number to be [phone] confirmed C9 received, Suellen will review and send to provided fax [phone]. She is aware of plans to d/c from hospital today Ortho placed discharge order pending home teach and C9 approval from [facility]. Per ruel doan, Ambrocio, patient to have bedside teach this date at 11am. 1115- [facility] in [facility] referral for [facility] to review. Also faxed to [facility] infusion center services at [phone]. 1130- bedside teach completed, patient will receive deliver of supplies by EOD this date 01/28/2025. Received ancef this morning at 0930, gets it every 8 hours, can d.c after this afternoon dose. SIGNATURE: Melissa Stevenson RN PATIENT NAME: David Munoz DATE: January 28, 2025 TIME: 8:45 AM [facility] 01-28-2025 Note HNO ID: [id number] Author: ZHANNA CHRISTY APRN.CNP Service: Orthopaedic Surgery Author Type: Nurse Practitioner Type: Progress Notes Filed: 01/28/2025 08:36 Note Text: ORTHOPEDIC SURGERY DAILY PROGRESS NOTE Patient Name: David Munoz Date of Evaluation: 01/28/2025 Admission Date: 01/24/2025 Time of Evaluation: 8:33 AM ASSESSMENT: 34 year old male POD#3 L elbow I and D PLAN: - Infectious disease consult for antibiotic recommendations: PICC antibiotics for 6 weeks - Follow-up cultures - gram stain gram positive cocci - Nonweightbearing left upper extremity - Wound VAC for 7 days-no output noted-aneudy in the room - Discharge home todayafter [facility] approval INTERVAL HPI: Patient monitored, no new events overnight. Still endorses stiffness in left elbow. Pt states he is unaware of the time for his PICC insertion. Discussed home going instructions for the aneudy home wound vac. Patient states his girlfriend works as a nurse at [employer] and he is confident that she is able to help care for the woundvac when the battery dies in 7 days. Well Controlled pain. Denies nausea/vomitting. OBJECTIVE: BP 101/57 Pulse (!) 56 Temp 36.7 ?C (98 ?F) (Oral) Resp 18 Ht 182.9 cm (6') Wt 90.2 kg (198 lb 13.7 oz) SpO2 98% BMI 26.97 kg/m? Intake/Output Summary (Last 24 hours) No intake/output data recorded. Exam: General: NAD, AAOx3 Extremities: Left elbow: Inspection: NELIDA wrap and wound vac intact with no drainage. Palpation: Tenderness to palpation, pulses intact. Sensation: Sensation intact Motor:Diminished ROM of elbow due to soreness and wound vac. Able to wiggle fingers, flex and extend wrist. Labs: BMP: Sodium 136 12/13/2024 Potassium 4.2 12/13/2024 Chloride 105 12/13/2024 CO2 26 12/13/2024 BUN 18 12/13/2024 Creatinine 0.97 12/13/2024 Glucose 103 12/13/2024 CBC: WBC 7.40 12/13/2024 Hemoglobin 14.6 12/13/2024 Hematocrit 41.3 12/13/2024 Platelet Count 210 12/13/2024 COAGS: APTT 26.1 12/12/2024 INR 1.2 12/12/2024 SED RATE/CRP: Sed Rate, Westergren 16 01/26/2025 Imaging: none myrna Christy APRN.[facility] Orthopedic Surgery [phone] 01/28/2025 8:33 AM [facility] 2025 Note HNO ID: [id number] Author: MELISSA STEVENSON RN Service: Care Management Author Type: Registered Nurse Type: Care Mgt Progress Note Filed: 2025 15:48 Note Text: CARE MANAGEMENT PROGRESS NOTE SERVICE DATE: 2025 SERVICE TIME: 12:08 PM LOS: 3 days [place] of Choice Given: Yes Level of Care Discussed: Other: See Comment (home infusion pharmcy and wound care) Provider list within the patient's requested geographic area shared with the patient/family: No Patient does not have preference to home infusion pharmacy and would like to go to [facility] for lab work and picc care. Patient is from home with his girlfriend, he is independent of ADL, drive. Does not have PCP, declined assistance at this time. Placed PCP assistance number into d/c papers. Patient has DME at baseline. His girlfriend and mother are listed as legal next of kin. Will have transport at discharge. Patient admitted with dx of proximal end of left ulna, had infection, had planned IANDD with Dr. Maier on 01/24/2025. Infectious disease is following, recommending PICC and IVAB at d/c. PICC has been placed and IVAB ordered. CM spoke with patient, he has no preference for home infusion pharmacy, CM sent referral to [facility]. Patient wishes to go to [facility] for lab work and picc care weekly. Cm called [facility], . Spoke with intake provider, they are able to provide picc care and lab work weekly, appointment made for 02/03/2025 at 130pm. They will schedule subsequent appointments at this time. Requested that IVAB script be sent via fax ([phone]). Provided return phone number if further information needed from [facility]. Sent referral to [facility], they can accept patient, they accept [facility]. They state that approval usually takes 1-2 days. MICHAEL called assigned Suellen Lockett, . Suellen states she didn't know that patient was admitted to the hospital. She states she has to see if [facility] can accept [facility] as home infusion pharmacy. She also states that patient will need home care as going home on IVAB is indicating home bound status. MICHAEL explained that patient would not be home bound, that patient and girlfriend are teachable caregivers and that patient would have supplies delivered, he would receive a bedside teach prior to discharge. Michael notified Suellen that patient plans to go to [facility] once a week for lab work and picc care. Suellen states she has never heard of this type of plan in her 10 years of working with [facility] and she will have to take this to her water softener service supervisor. I personal notified my water softener service supervisor, Aliza Lee, of the same to ensure that proper channels are being taken by CM to avoid prolonged stay in hospital. C9 completed by Michael, asked Zhanna Christy, if she is able to complete [facility] forms, she is, she will signed form and then CM to fax to [facility] @ [phone]. MICHAEL has already sent all clinicals to [facility] including IVAB script and picc insertion note. SIGNATURE: Melissa Stevenson RN PATIENT NAME: David Munoz DATE: 2025 TIME: 12:08 PM [facility] 2025 Note HNO ID: [id number] Author: TIRSO JARAMILLO RN Service: ? Author Type: Registered Nurse Type: Procedures Filed: 2025 10:39 Note Text: PICC NURSE INSERTION NOTE DATE OF PROCEDURE: 2025 TIME OF PROCEDURE: 946 ORDERING PHYSICIAN: Dr. Means INFORMED CONSENT: Obtained per hospital policy. INDICATION FOR LINE PLACEMENT: COPAT CONDITION OF LINE PLACEMENT: Sterile PRIMARY PROCEDURALIST: TANVIR PRESTON RN BOWL TURNER: Tirso Jaramillo RN PRE-PROCEDURE REVIEW ALLERGIES Allergen Reactions Amoxicillin Rash Morphine Hives Known History of Upper Venous Thrombosis: No Known History of Permanent Pacemaker or Automated Implanted Cardiac Device: No Previous Breast Surgery of Lymph Node Dissection: No Estimated Glomerular Filtration Rate Date Value Ref Range Status 12/13/2024 105 >=60 mL/min/1.73m? Final Comment: Estimated Glomerular Filtration Rate (eGFR) is calculated using the 2020 CKD-EPI creatinine equation. This equation utilizes serum creatinine, sex, and age as parameters. The creatinine assay has traceable calibration to isotope dilution-mass spectrometry. Refer to KDIGO guidelines for clinical interpretation. In patients with unstable renal function, e.g. those with acute kidney injury, the eGFR may not accurately reflect actual GFR. eGFR- Date Value Ref Range Status 10/21/2017 >60 Final History of Renal Disease: No Ultrasound Assessment Complete: Yes PROCEDURE NARRATIVE SAFE PRACTICE Hand Hygiene per Hospital Policy: Yes Skin Preparation Unit Dose Applicator Used: Chloraprep (CHG + alcohol), allowed to dry. Procedure Surface Cleansed with Antimicrobial Wipes: Yes Barriers Used by Proceduralist and all Assisting Personnel: Yes UNIVERSAL PROTOCOL / SAFETY CHECKLIST Procedure to be Performed: PICC Sign In: A Moment of CARE was completed. Appropriate PPE (Personal Protective Equipment) worn by all providers involved with the procedure. Special equipment not required. Patient/Surrogate Stated/Verified: Patient name, Date of , Relevant allergies, and The intended procedure Time Out: Relevant labs, photos, and/or imaging studies have been reviewed. Intended patient and procedure match the source document(s) (e.g. consent, HANDP, associated studies [imaging, pathology]) match the intended patient and procedure. Consent obtained and matches the intended procedure. Yes. Correct side/site is not applicable. Medications required for this procedure are verified. Fire risk assessed and is not applicable. Implants: are not applicable. Sign Out: Specimens not collected. All instruments, equipment, possible retained foreign bodies are accounted for. Yes. The post-procedure plan of care has been communicated to patient's multidisciplinary team (including bedside nurse for hospitalized patients). CATHETER PLACEMENT Brand: Nexus eWater Lot: [id number] Number of Lumens: 1 Type of PICC: Power Injectable PICC Lumen Size: 4 [place] PLACEMENT TECHNIQUE Lidocaine: Yes, Lidocaine 1% Volume 2 mL Subcutaneous Modified Seldinger Technique Used to Place Line via the Right Basilic Ultrasound Guidance: Yes Number of Attempts at Insertion: 1 Ensured control of guidewire during all aspects of the procedure: Yes Accounted for entire guidewire upon removal: Yes Internal Length: 41 cm External Length: 0 cm Trim Length: 41 cm Mid-Arm Circumference: 38 centimeters Post Insertion Pain Level Related to Procedure: 0 Action Taken to Address Pain: None needed Verified Placement: Blood return and flushes with ease and Tip location system or device indicates the tip is located in the SVC/CAJ. Line was Flushed with 10 mL normal saline Line Secured with: Securement device Sterile Dressing Applied and Dated: Yes Sterile Caps on all Ports Prior to Leaving Procedure Area: Yes, Disinfection caps applied SPECIMENS: None COMPLICATIONS: None Patient Education Materials: Placed in chart The [facility] Line Insertion checklist was utilized during this procedure. QUESTIONS or PROBLEMS: vocera SIGNATURE: Tirso Jaramillo RN PATIENT NAME: David Muonz DATE: 2025 TIME: 10:35 AM PAGER/CONTACT PHONE: [facility] 2025 Note HNO ID: [id number] Author: JADA MEANS MD Service: Infectious Disease Author Type: Physician Type: Progress Notes Filed: 2025 09:12 Note Text: INFECTIOUS DISEASE CONSULT PROGRESS NOTE SERVICE DATE: 2025 SERVICE TIME: 9:10 AM Subjective INTERVAL HISTORY: Patient is alert overall clinically stable. Operative cultures growing Staphylococcus aureus, MSSA. No fevers. Wound VAC in left arm. Current Facility-Administered Medications Medication Dose Route Frequency ceFAZolin iv piggyback 2 g in D5W (iso-osmotic) 100 mL (ANCEF) 2 g INTRAVENOUS q 8 HR NaCl 0.9% iv flush bag 20 mL INTRAVENOUS PRN melatonin 6 mg tab(s) 6 mg ORAL AT BEDTIME PRN gabapentin 300 mg cap(s) (NEURONTIN) 300 mg ORAL DAILY ihmhadx-baetynyhn-qpawfga D3 500 mg-5 mcg (200 unit) 2 tablet 2 tablet ORAL BID lactated ringers iv infusion 75 mL/hr INTRAVENOUS CONTINUOUS traMADol 50 mg tab(s) (ULTRAM) 50 mg ORAL q 6 H PRN ondansetron (PF) 4 mg injection (ZOFRAN) 4 mg INTRAVENOUS q 6 H PRN ibuprofen 800 mg tab(s) (MOTRIN) 800 mg ORAL q 8 H PRN HYDROmorphone (PF) 0.5 mg injection (DILAUDID) 0.5 mg INTRAVENOUS q 4 H PRN Active Antimicrobials (From admission, onward) Start Stop 01/27/25 0930 ceFAZolin iv piggyback 2 g in D5W (iso-osmotic) 100 mL (ANCEF) 2 g, INTRAVENOUS, EVERY 8 HOURS -- Objective PHYSICAL EXAM: BP 101/54 Pulse 52 Temp (Src) 97.6 (Oral) Resp 16 Ht 6' 0 (1.83m) Wt 198 lb 13.7 oz (90.2kg) SpO2 97% BMI 26.96 kg/(m2). O2 Therapy: Room Air Temp last 24 hours: Temp (24hrs), Av.7 ?C (98 ?F), Min:36.4 ?C (97.6 ?F), Max:36.8 ?C (98.3 ?F) Alert responsive does not appear toxic. Left arm dressings are in place as well as a wound VAC. Lines, Drains, and Airways Line Duration Peripheral 01/26/25 1840 Right Forearm 20 Gauge <1 day DATA: Diagnostic Tests Reviewed for Today's Visit: CBC, Coags, BMP, Mg, Phos Liver Function, Amylase, AND Lipase Impression/Recommendations Postop orthopedic infection of the left elbow with MSSA. Based on the sensitivity data we will switch from vancomycin to cefazolin 2 g IV every 8 hours. PICC line was ordered yesterday for IV access. I did write a prescription for cefazolin 2 g IV every 8 hours with a stop date of March 07, along with weekly blood work of a CMP and a CBC. SIGNATURE: Jada Means MD PATIENT NAME: David Munoz DATE: 2025 TIME: 9:10 AM . [facility] 2025 Note HNO ID: [id number] Author: ZHANNA CHRISTY APRN.CNP Service: Orthopaedic Surgery Author Type: Nurse Practitioner Type: Progress Notes Filed: 2025 08:47 Note Text: ORTHOPEDIC SURGERY DAILY PROGRESS NOTE Patient Name: David Munoz Date of Evaluation: 2025 Admission Date: 01/24/2025 Time of Evaluation: 8:43 AM ASSESSMENT: 34 year old male POD#2 L elbow I and D PLAN: - Infectious disease consult for antibiotic recommendations: PICC antibiotics for 6 weeks - Follow-up cultures - gram stain gram positive cocci - Nonweightbearing left upper extremity - Wound VAC for 7 days-no output noted-aneudy in the room - Discharge home todayafter PICC insertion. INTERVAL HPI: Patient monitored, no new events overnight. Still endorses stiffness in left elbow. Pt states he is unaware of the time for his PICC insertion. Discussed home going instructions for the aenudy home wound vac. Patient states his girlfriend works as a nurse at [employer] and he is confident that she is able to help care for the woundvac when the battery dies in 7 days. Well Controlled pain. Denies nausea/vomitting. OBJECTIVE: BP 101/54 Pulse (!) 52 Temp 36.4 ?C (97.6 ?F) (Oral) Resp 16 Ht 182.9 cm (6') Wt 90.2 kg (198 lb 13.7 oz) SpO2 97% BMI 26.97 kg/m? Intake/Output Summary (Last 24 hours) No intake/output data recorded. Exam: General: NAD, AAOx3 Extremities: Left elbow: Inspection: NELIDA wrap and wound vac intact with no drainage. Palpation: Tenderness to palpation, pulses intact. Sensation: Sensation intact Motor:Diminished ROM of elbow due to soreness and wound vac. Able to wiggle fingers, flex and extend wrist. Labs: BMP: Sodium 136 12/13/2024 Potassium 4.2 12/13/2024 Chloride 105 12/13/2024 CO2 26 12/13/2024 BUN 18 12/13/2024 Creatinine 0.97 12/13/2024 Glucose 103 12/13/2024 CBC: WBC 7.40 12/13/2024 Hemoglobin 14.6 12/13/2024 Hematocrit 41.3 12/13/2024 Platelet Count 210 12/13/2024 COAGS: APTT 26.1 12/12/2024 INR 1.2 12/12/2024 SED RATE/CRP: Sed Rate, Westergren 16 01/26/2025 Imaging: none new Zhanna Christy APRN.CNP Orthopedic Surgery [phone] 2025 8:43 AM [facility] 01-26-2025 Note HNO ID: [id number] Author: ZHANNA CHRISTY APRN.CNP Service: Orthopaedic Surgery Author Type: Nurse Practitioner Type: Progress Notes Filed: 01/26/2025 10:12 Note Text: ORTHOPEDIC SURGERY DAILY PROGRESS NOTE Patient Name: David Munoz Date of Evaluation: 01/26/2025 Admission Date: 01/24/2025 Time of Evaluation: 10:07 AM ASSESSMENT: 34 year old male POD1 L elbow I and D PLAN: - Infectious disease consult for antibiotic recommendations: PICC antibiotics for 6 weeks - Follow-up cultures - gram stain gram positive cocci - Nonweightbearing left upper extremity - Wound VAC for 7 days-no output noted - Discharge home tomorrow after PICC insertion. INTERVAL HPI: Patient monitored, no new events overnight. ID states PICC line Monday for IV ABX treatment for 6 weeks. Patient states minimal pain, endorses stiffness, denies numbness and tingling. Able to flex and extend elbow, decreased ROM due to wound vac and stiffness. Well Controlled pain. Denies nausea/vomitting. OBJECTIVE: BP 105/51 Pulse (!) 47 Temp 36.5 ?C (97.7 ?F) (Oral) Resp 16 Ht 182.9 cm (6') Wt 90.2 kg (198 lb 13.7 oz) SpO2 96% BMI 26.97 kg/m? Intake/Output Summary (Last 24 hours) No intake/output data recorded. Exam: General: NAD, AAOx3 Extremities: Left elbow: Inspection: NELIDA wrap and wound vac intact with no drainage. Palpation: Tenderness to palpation, pulses intact. Sensation: Sensation intact Motor:Diminished ROM of elbow due to soreness and wound vac. Able to wiggle fingers, flex and extend wrist. Labs: BMP: Sodium 136 12/13/2024 Potassium 4.2 12/13/2024 Chloride 105 12/13/2024 CO2 26 12/13/2024 BUN 18 12/13/2024 Creatinine 0.97 12/13/2024 Glucose 103 12/13/2024 CBC: WBC 7.40 12/13/2024 Hemoglobin 14.6 12/13/2024 Hematocrit 41.3 12/13/2024 Platelet Count 210 12/13/2024 COAGS: APTT 26.1 12/12/2024 INR 1.2 12/12/2024 SED RATE/CRP: Sed Rate, Westergren 16 01/26/2025 Imaging: none myrna Christy APRN.[facility] Orthopedic Surgery [phone] 01/26/2025 10:07 AM [facility] 01-26-2025 Note HNO ID: [id number] Author: JADA MEANS MD Service: Infectious Disease Author Type: Physician Type: Progress Notes Filed: 01/26/2025 08:11 Note Text: INFECTIOUS DISEASE CONSULT PROGRESS NOTE SERVICE DATE: 01/26/2025 SERVICE TIME: 8:10 AM Subjective INTERVAL HISTORY: Patient is alert overall clinically stable. Tolerating parenteral vancomycin well. Intraoperative culture of the left elbow pending. No fevers. Current Facility-Administered Medications Medication Dose Route Frequency vancomycin iv piggyback 1 g in D5W 200 mL (VANCOCIN) 1 g INTRAVENOUS q 12 HR melatonin 6 mg tab(s) 6 mg ORAL AT BEDTIME PRN gabapentin 300 mg cap(s) (NEURONTIN) 300 mg ORAL DAILY jjyjumf-zawjrkldc-ebrdanv D3 500 mg-5 mcg (200 unit) 2 tablet 2 tablet ORAL BID lactated ringers iv infusion 75 mL/hr INTRAVENOUS CONTINUOUS traMADol 50 mg tab(s) (ULTRAM) 50 mg ORAL q 6 H PRN ondansetron (PF) 4 mg injection (ZOFRAN) 4 mg INTRAVENOUS q 6 H PRN ibuprofen 800 mg tab(s) (MOTRIN) 800 mg ORAL q 8 H PRN HYDROmorphone (PF) 0.5 mg injection (DILAUDID) 0.5 mg INTRAVENOUS q 4 H PRN Active Antimicrobials (From admission, onward) Start Stop 01/25/25 0830 vancomycin iv piggyback 1 g in D5W 200 mL (VANCOCIN) 1 g, INTRAVENOUS, EVERY 12 HOURS -- Objective PHYSICAL EXAM: BP 105/51 Pulse 47 Temp (Src) 97.7 (Oral) Resp 16 Ht 6' 0 (1.83m) Wt 198 lb 13.7 oz (90.2kg) SpO2 96% BMI 26.96 kg/(m2). O2 Therapy: Room Air Temp last 24 hours: Temp (24hrs), Av.8 ?C (98.2 ?F), Min:36.5 ?C (97.7 ?F), Max:36.9 ?C (98.5 ?F) Alert responsive does not appear toxic left elbow postop dressings are in place heart exam S1-S2 Lines, Drains, and Airways Line Duration Peripheral 01/24/25 1452 Right Antecubital 20 Gauge 1 day DATA: Diagnostic Tests Reviewed for Today's Visit: CBC, Coags, BMP, Mg, Phos Liver Function, Amylase, AND Lipase Impression/Recommendations Postop left olecranon fracture repair infection. Status post surgical IANDD, intraoperative cultures data pending. Will continue empiric parenteral vancomycin and closely follow the intraoperative culture data. Will arrange for PICC line for IV access. SIGNATURE: Jada Means MD PATIENT NAME: David Munoz DATE: January 26, 2025 TIME: 8:10 AM . [facility] 01-25-2025 Note HNO ID: [id number] Author: SALVATORE MAIER MD Service: Orthopaedic Surgery Author Type: Physician Type: Progress Notes Filed: 01/25/2025 07:57 Note Text: ORTHOPAEDIC SURGERY DAILY PROGRESS NOTE Patient Name: Dvaid Munoz Date of Evaluation: January 25, 2025 Admission Date: 01/24/2025 Time of Evaluation: 7:55 AM ASSESSMENT: 34 year old male POD1 L elbow I and D PLAN: - Infectious disease consult for antibiotic recommendations: Likely antibiotics for 6 weeks - Follow-up cultures - gram stain gram positive cocci - Nonweightbearing left upper extremity - Wound VAC for 7 days - Discharge home hopefully today pending ID recs. INTERVAL HPI: Patient monitored, no new events overnight. Some left elbow soreness. Denies nausea/vomitting. OBJECTIVE: BP 101/54 Pulse (!) 56 Temp 36.8 ?C (98.3 ?F) (Oral) Resp 16 Ht 182.9 cm (6') Wt 90.2 kg (198 lb 13.7 oz) SpO2 97% BMI 26.97 kg/m? Intake/Output Summary (Last 24 hours) No intake/output data recorded. Exam: General: NAD, AAOx3 Extremities: LUE: Dressing intact. Wound vac in place with no drainage. NVI distally. Labs: BMP: Sodium 136 12/13/2024 Potassium 4.2 12/13/2024 Chloride 105 12/13/2024 CO2 26 12/13/2024 BUN 18 12/13/2024 Creatinine 0.97 12/13/2024 Glucose 103 12/13/2024 CBC: WBC 7.40 12/13/2024 Hemoglobin 14.6 12/13/2024 Hematocrit 41.3 12/13/2024 Platelet Count 210 12/13/2024 COAGS: APTT 26.1 12/12/2024 INR 1.2 12/12/2024 SED RATE/CRP: No results found for this basename: wsr:*,crp:* Imaging: None Salvatore Maier MD Orthopaedic Surgery [phone] 01/25/2025 7:55 AM [facility] 01-24-2025 Note HNO ID: [id number] Author: SALVATORE VALLADARES AA Service: ? Author Type: Machinist Set Up Type: Anesthesia Procedure Notes Filed: 01/24/2025 16:27 Note Text: ANESTHESIOLOGY PROCEDURE NOTE Airway General Information Procedure Start Time/Medication Administration: 01/24/2025 4:23 PM Procedure End Time: 01/24/2025 4:26 PM Patient location during procedure: OR Timeout Performed Pre-procedure: timeout performed Consent Obtained: Yes Patient identity confirmed: arm band Staffing Anesthesiologist: Laurie Holly DO CAA: Salvatore Valladares AA Performed by: CAA and anesthesiologist Indications and Patient Condition Indications for airway management: anesthesia Preoxygenated: yes anesthesia circuit Patient position: sniffing Difficult Mask: No Final Airway Details Final airway type: supraglottic airway Number of attempts at approach: 1 Final Supraglottic Airway: i-gel Size 5 Seal Adequate: yes Failed airway: no Unrecognized esophageal intubation: no Airway not difficult SIGNATURE: CAROL Lerma PATIENT NAME: David Munoz DATE: January 24, 2025 TIME: 4:26 PM CSN: [id number] [facility] 01-23-2025 Note HNO ID: [id number] Author: JAY OSULLIVAN RN Service: Nursing Author Type: Registered Nurse Type: Progress Notes Filed: 01/23/2025 16:18 Note Text: MEDICATION INSTRUCTIONS PRIOR TO SURGERY Please read below carefully for your personalized instructions. Medications: If you are on blood thinner or anticoagulants including aspirin, please confirm with your surgical team on when to stop these medications. Unless instructed differently by your surgical team, stay on all of your medications until your surgery. Pre Surgery Med Instructions Medication instructions doxycycline (VIBRA-TABS) 100 mg tablet DO NOT TAKE THE MORNING OF SURGERY. ibuprofen (MOTRIN IB) 200 mg tablet Follow surgeon's instructions. multivit-min/ferrous fumarate (MULTI VITAMIN ORAL) DO NOT TAKE THE MORNING OF SURGERY. predniSONE (DELTASONE) 10 mg tablet Follow prescriber's instructions. If you take any medications for erectile dysfunction-Cialis (Tadalafil), Levitra, Staxyn (Vardenafil) Viagra (Sildenenafil please do not take these for 48 hours before surgery. If you have any medication changes between receiving these instructions and your surgery date, please provide this updated information with the nurse who calls you the week day prior to your surgical procedure so we can update your list and provide you with updated instructions for the morning of your procedure. PRE-PROCEDURE INSTRUCTIONS TO PREPARE FOR YOUR PROCEDURE: Your arrival time for your procedure is 1400. Do NOT eat any solid foods after MIDNIGHT the night prior to your procedure - this includes gum or mints. You can drink clear liquids* up until 1200, which is 2 hours before your arrival time. *Clear liquids = water, carbohydrate drink (sports drink that is clear or yellow in color), Ensure Pre-Surgery (given by CLAIRE or your ), fruit juice without pulp (apple/cranberry), clear tea, black coffee (no cream). NO CARBONATED BEVERAGES AND NO ALCOHOL. Shower the morning of the procedure, put on clean clothes, and have clean sheets for your bed to help prevent infection after your procedure. Leave all valuables such as jewelry including rings, piercings, wallets, and purses at home. Wear comfortable, loose-fitting clothing. If you wear glasses or contacts, please bring a case. SPECIAL INSTRUCTIONS: If instructed, bring your first voided urine specimen with you. If you were provided skin preparation to use prior to your procedure, complete this as directed. If a bowel preparation has been ordered by your physician, it is very important to follow the bowel prep instructions or your procedure may need to be rescheduled. If you use crutches or a walker, bring them with you. If you have a home CPAP/BIPAP machine, bring it with you. If you were instructed to complete a fleets enema or bowel prep, complete as directed. Bring copy of Living Will/Power of [employer]. Do not smoke or chew. If you use tobacco, quit or at least cut down before surgery. Do not smoke or chew after midnight the day before your surgery. This effects bleeding, infection, healing, and so much more. Do not take any Diet or Herbal Supplements 2 weeks prior to your surgery date. Please notify your physician if there is any change in your physical condition such as a cold, cough, fever, sore throat, or skin irritation near the surgical site. Visitors under the age of 14 are restricted in the Surgery Center. UPON ARRIVAL: Access to [facility] is located on [address] [place] [address]. [employer] parking is available for your convenience from 5am-5pm- there is a $5.00 charge for this service. Take the elevators directly inside the entrance to the 1st Floor Surgery Lobby. Sign in at the podium located to the left when you get off the elevators. A payment may be expected at the time of service. One visitor may come back to the preoperative area with you. The preoperative staff will be reviewing your medical history, please let them know if you prefer not to have a visitor with you during this time. Once you are ready for your procedure, two visitors at a time are permitted in your preprocedure room. [facility] 01-23-2025 Note HNO ID: [id number] Author: HERMANN TAYLOR APRN.CNP Service: Anesthesiology Author Type: Nurse Practitioner Type: Progress Notes Filed: 01/23/2025 08:00 Note Text: Summary: dos meds MEDICATION INSTRUCTIONS PRIOR TO SURGERY Please read below carefully for your personalized instructions. Medications: If you are on blood thinner or anticoagulants including aspirin, please confirm with your surgical team on when to stop these medications. Unless instructed differently by your surgical team, stay on all of your medications until your surgery. Pre Surgery Med Instructions Medication instructions doxycycline (VIBRA-TABS) 100 mg tablet DO NOT TAKE THE MORNING OF SURGERY. ibuprofen (MOTRIN IB) 200 mg tablet Follow surgeon's instructions. multivit-min/ferrous fumarate (MULTI VITAMIN ORAL) DO NOT TAKE THE MORNING OF SURGERY. predniSONE (DELTASONE) 10 mg tablet Follow prescriber's instructions. If you take any medications for erectile dysfunction-Cialis (Tadalafil), Levitra, Staxyn (Vardenafil) Viagra (Sildenenafil please do not take these for 48 hours before surgery. If you have any medication changes between receiving these instructions and your surgery date, please provide this updated information with the nurse who calls you the week day prior to your surgical procedure so we can update your list and provide you with updated instructions for the morning of your procedure. [facility] 01-23-2025 Note HNO ID: [id number] Author: HERMANN TAYLOR APRN.[employer] MECHANIC Service: Anesthesiology Author Type: Nurse Practitioner Type: Progress Notes Filed: 01/23/2025 07:59 Note Text: Summary: PAT REVIEW 34yo male, exsmoker, chews tobacco. PMH: last OR 11/2024, HLD (no meds) [facility] 01-20-2025 Telephone encounter Note Scheduled I&D Lt elbow postoperative wound infection on 01/24/25 @ [facility]. POV is scheduled on 02/07/25 @ 8:45 am with Mitch Chao. Instructions and surgery guide were given to patient at today's office visit. All questions were answered at that time. Luisa Appiah LPN [facility] 01-20-2025 Miscellaneous Notes Scheduled I&D Lt elbow postoperative wound infection on 01/24/25 @ [facility]. POV is scheduled on 02/07/25 @ 8:45 am with Mitch Chao. Instructions and surgery guide were given to patient at today's office visit. All questions were answered at that time. Luisa Appiah LPN documented in this encounter [facility] 01-20-2025 Note HNO ID: [id number] Author: SALVATORE MAIER MD Service: ? Author Type: Physician Type: Progress Notes Filed: 01/20/2025 11:23 Note Text: Reason for Visit/Chief Complaint: Routine Post-Op Visit Date of Surgery: 12/13/24 Surgery Performed: ORIF ulnar fracture proximal end History of Present Illness: Patient presents for evaluation status post the above procedure. He is now 5 weeks out from surgery. He started to notice drainage from the posterior aspect of his incision last week. He states that it begins with purulent drainage and then becomes more serous. Over the past few days, he has started to notice some fevers and chills and a headache. I did speak with him on the phone yesterday and placed him on oral doxycycline. He states that his drainage has slowly began to improve since starting the antibiotics. His range of motion is improved from prior visit. Physical Exam Left elbow: Incision with multiple areas of purulent drainage. There is surrounding erythema and fluctuance extending down into the mid forearm. I am able to express purulent drainage from the incision. The patient has range of motion from 20 degrees short of full extension to 110 degrees of flexion. Imagin views left elbow personally reviewed demonstrating stable appearance of hardware with no acute abnormalities. There is interval callus formation Assessment: S/p above stated procedure, with postoperative wound infection Plan: 1) Pain control-Tylenol/ibuprofen 2) continue with oral doxycycline 3) I discussed treatment options with the patient. Appears he has a postoperative infection. Did discuss open incision and drainage with culture and postoperative admission for infectious disease consult. I will plan on retaining the hardware as his fracture is not fully healed yet. I discussed the risk including bleeding, recurrent infection, and he elected to proceed. Consent was obtained in office today. We will plan on surgery this week 4) Vtfchk-blulgvm-flglxzvm with nonweightbearing. Salvatore Maier MD 01/20/2025 11:22 AM [facility] 01-20-2025 History of Presen t illness Narrative Reason for Visit/Chief Complaint: Routine Post-Op Visit Date of Surgery: 12/13/24 Surgery Performed: ORIF ulnar fracture proximal end History of Present Illness: Patient presents for evaluation status post the above procedure. He is now 5 weeks out from surgery. He started to notice drainage from the posterior aspect of his incision last week. He states that it begins with purulent drainage and then becomes more serous. Over the past few days, he has started to notice some fevers and chills and a headache. I did speak with him on the phone yesterday and placed him on oral doxycycline. He states that his drainage has slowly began to improve since starting the antibiotics. His range of motion is improved from prior visit. Physical Exam Left elbow: Incision with multiple areas of purulent drainage. There is surrounding erythema and fluctuance extending down into the mid forearm. I am able to express purulent drainage from the incision. The patient has range of motion from 20 degrees short of full extension to 110 degrees of flexion. Imagin views left elbow personally reviewed demonstrating stable appearance of hardware with no acute abnormalities. There is interval callus formation Assessment: S/p above stated procedure, with postoperative wound infection Plan: 1) Pain control-Tylenol/ibuprofen 2) continue with oral doxycycline 3) I discussed treatment options with the patient. Appears he has a postoperative infection. Did discuss open incision and drainage with culture and postoperative admission for infectious disease consult. I will plan on retaining the hardware as his fracture is not fully healed yet. I discussed the risk including bleeding, recurrent infection, and he elected to proceed. Consent was obtained in office today. We will plan on surgery this week 4) Ydurrb-ctyojen-ujbhttij with nonweightbearing. Salvatore Maier MD 01/20/2025 11:22 AM [facility] Scheduling Details Diagnosis: (S52.022A) Olecranon fracture, left, closed, initial encounter (primary encounter diagnosis) Procedure: Incision and drainage left elbow postoperative wound infection OR Time Needed: 1 hours Location: [x] [facility] [] [facility] Equipment Request: Culture swabs, cystoscopy tubing, basic Ortho set [] Mini-C-arm [] Large C-arm Anesthesia: General Post op appointment: 2 weeks Inpatient stay: [facility] Pre Testing Needed: No Physical Therapy: No Time Frame for scheduling: Specific date: 01/24/25 to follow elective cases documented in this encounter [facility] 01-20-2025 Note HNO ID: [id number] Author: SALVATORE MAIER MD Service: ? Author Type: Physician Type: Progress Notes Filed: 01/20/2025 11:23 Note Text: [facility] Scheduling Details Diagnosis: (S52.022A) Olecranon fracture, left, closed, initial encounter (primary encounter diagnosis) Procedure: Incision and drainage left elbow postoperative wound infection OR Time Needed: 1 hours Location: [x] [facility] [] [facility] Equipment Request: Culture swabs, cystoscopy tubing, basic Ortho set [] Mini-C-arm [] Large C-arm Anesthesia: General Post op appointment: 2 weeks Inpatient stay: [facility] Pre Testing Needed: No Physical Therapy: No Time Frame for scheduling: Specific date: 01/24/25 to follow elective cases [facility] 01-20-2025 History of Presen t illness Narrative Summary: LEFT ELBOW XRAY Radiology Service Progress Note PATIENT NAME: David Munoz DATE OF SERVICE: January 20, 2025 TIME: 9:28 AM PATIENT IDENTITY VERIFICATION COMPLETED USING TWO (2) IDENTIFIERS: Name and Date of confirmed by patient verbally. FALL SCREENING: Has the patient had 2 falls in the last year or 1 fall with injury or currently using an Ambulatory Assistive Device (Walker, Cane, Wheelchair, Crutches, etc.)? No PATIENT GENDER DATA: Assigned male at PATIENT RELEVANT IMPLANT DATA REVIEWED: Not Applicable PATIENT PRESENTS WITH AN IMPLANTABLE OR ATTACHED WAREHOUSE ASSOCIATE: No RADIOLOGY DEPARTMENT: General X-ray: Exam(s) Completed: Upper Extremity X-Ray(s): Elbow, left PERIPHERAL IV DATA: Not applicable SIGNED BY: Danuta Lopez January 20, 2025 9:28 AM documented in this encounter [facility] 01-20-2025 Note HNO ID: [id number] Author: BARRINGTON GREENBERG Tech Service: Radiology Author Type: Technologist Type: Progress Notes Filed: 01/20/2025 09:28 Note Text: Summary: LEFT ELBOW XRAY Radiology Service Progress Note PATIENT NAME: David Munoz DATE OF SERVICE: January 20, 2025 TIME: 9:28 AM PATIENT IDENTITY VERIFICATION COMPLETED USING TWO (2) IDENTIFIERS: Name and Date of confirmed by patient verbally. FALL SCREENING: Has the patient had 2 falls in the last year or 1 fall with injury or currently using an Ambulatory Assistive Device (Walker, Cane, Wheelchair, Crutches, etc.)? No PATIENT GENDER DATA: Assigned male at PATIENT RELEVANT IMPLANT DATA REVIEWED: Not Applicable PATIENT PRESENTS WITH AN IMPLANTABLE OR ATTACHED WAREHOUSE ASSOCIATE: No RADIOLOGY DEPARTMENT: General X-ray: Exam(s) Completed: Upper Extremity X-Ray(s): Elbow, left PERIPHERAL IV DATA: Not applicable SIGNED BY: Danuta Lopez January 20, 2025 9:28 AM [facility] 01-17-2025 Telephone encounter Note Pt reminded of appointment on 01/20/25 and to have xrays completed prior to the day of his appointment. Pt was given hours and locations to have this completed. Pt verbalized understanding of instructions. Dona Fairbanks MA January 17, 2025 10:13 AM [facility] 01-17-2025 Miscellaneous Notes Pt reminded of appointment on 01/20/25 and to have xrays completed prior to the day of his appointment. Pt was given hours and locations to have this completed. Pt verbalized understanding of instructions. Dona Fairbanks MA January 17, 2025 10:13 AM documented in this encounter [facility] 01-06-2025 Note HNO ID: [id number] Author: SALVATORE MAIER MD Service: ? Author Type: Physician Type: Progress Notes Filed: 01/06/2025 12:04 Note Text: Reason for Visit/Chief Complaint: Routine Post-Op Visit Date of Surgery: 12/13/24 Surgery Performed: ORIF ulnar fracture proximal end History of Present Illness: Patient presents 3 weeks status post the above procedure. He states that he felt a pop a few days ago and had some increased pain over his triceps region. He has been wearing his hinged elbow brace and been compliant with nonweightbearing. He has been trying to do range of motion exercises on his own. Physical Exam Left elbow: Incision healing well with no signs of erythema or drainage. Range of motion 30 degrees short of full extension to 80 degrees of flexion. His triceps appears intact and he does have strength with resisted elbow extension Imagin views left elbow personally reviewed demonstrating stable appearance of hardware with no acute abnormalities. Assessment: S/p above stated procedure, doing well Plan: 1) Pain control- Continue pain medications as prescribed. Risks of medications discussed 2) PT-okay to start physical therapy. Order placed today. 3) Immobilization-hinged elbow brace. Range of motion unlimited. 4) Weight-bearing- NWB 5) Follow-up- Patient to follow up in 2 weeks. Salvatore Maier MD 01/06/2025 12:03 PM [facility] 01-06-2025 History of Presen t illness Narrative Reason for Visit/Chief Complaint: Routine Post-Op Visit Date of Surgery: 12/13/24 Surgery Performed: ORIF ulnar fracture proximal end History of Present Illness: Patient presents 3 weeks status post the above procedure. He states that he felt a pop a few days ago and had some increased pain over his triceps region. He has been wearing his hinged elbow brace and been compliant with nonweightbearing. He has been trying to do range of motion exercises on his own. Physical Exam Left elbow: Incision healing well with no signs of erythema or drainage. Range of motion 30 degrees short of full extension to 80 degrees of flexion. His triceps appears intact and he does have strength with resisted elbow extension Imagin views left elbow personally reviewed demonstrating stable appearance of hardware with no acute abnormalities. Assessment: S/p above stated procedure, doing well Plan: 1) Pain control- Continue pain medications as prescribed. Risks of medications discussed 2) PT-okay to start physical therapy. Order placed today. 3) Immobilization-hinged elbow brace. Range of motion unlimited. 4) Weight-bearing- NWB 5) Follow-up- Patient to follow up in 2 weeks. Salvatore Maier MD 01/06/2025 12:03 PM documented in this encounter [facility] 01-02-2025 Telephone encounter Note Pt reminded of appointment on 01/06/25 and to have xrays completed prior to the day of his appointment. Pt was given hours and locations to have this completed. Pt verbalized understanding of instructions. Dona Fairbanks MA January 02, 2025 2:33 PM [facility] 01-02-2025 Miscellaneous Notes Pt reminded of appointment on 01/06/25 and to have xrays completed prior to the day of his appointment. Pt was given hours and locations to have this completed. Pt verbalized understanding of instructions. Dona Fairbanks MA January 02, 2025 2:33 PM documented in this encounter [facility] 12-23-2024 Note HNO ID: [id number] Author: DONA FAIRBANKS MA Service: ? Author Type: Fugitive Detective Type: Progress Notes Filed: 12/23/2024 13:03 Note Text: ACT ROM left arm brace applied to arm/elbow after gauze and coban were applied per instruction by provider. Pt tolerated well. Care instruction and education were given at this time with verbal understanding from the patient. Pt had no further questions at this time. Dona Fairbanks MA [facility] 12-23-2024 History of Presen t illness Narrative ACT ROM left arm brace applied to arm/elbow after gauze and coban were applied per instruction by provider. Pt tolerated well. Care instruction and education were given at this time with verbal understanding from the patient. Pt had no further questions at this time. Dona Fairbanks MA Reason for Visit/Chief Complaint: Routine Post-Op Visit Date of Surgery: 12/13/24 Surgery Performed: ORIF ulnar fracture proximal end History of Present Illness: Patient is status post above-stated procedure. Overall doing well. Denies any sensorimotor changes or wound issues. Pain controlled. Patient is compliant with sling. No other complaints at this time Physical Exam Left elbow: Splint removed. Александр removed. Painless range of motion 20 to 90 degrees. No erythema or drainage. Sensation intact to light touch over the radial, median, ulnar nerve distribution. 2+ radial pulse. Imagin views left elbow personally reviewed demonstrating stable appearance of hardware with no acute abnormalities. Assessment: S/p above stated procedure, doing well Plan: 1) Pain control- Continue pain medications as prescribed. Risks of medications discussed 2) PT- None at this time per our instruction. 3) Immobilization-hinged elbow brace applied. Range of motion from 30 to 90 degrees. 4) Weight-bearing- NWB 5) Follow-up- Patient to follow up in 2 weeks. Salvatore Maier MD 12/23/2024 1:03 PM documented in this encounter [facility] 12-23-2024 Note HNO ID: [id number] Author: SALVATORE MAIER MD Service: ? Author Type: Physician Type: Progress Notes Filed: 12/23/2024 13:03 Note Text: Reason for Visit/Chief Complaint: Routine Post-Op Visit Date of Surgery: 12/13/24 Surgery Performed: ORIF ulnar fracture proximal end History of Present Illness: Patient is status post above-stated procedure. Overall doing well. Denies any sensorimotor changes or wound issues. Pain controlled. Patient is compliant with sling. No other complaints at this time Physical Exam Left elbow: Splint removed. [place] removed. Painless range of motion 20 to 90 degrees. No erythema or drainage. Sensation intact to light touch over the radial, median, ulnar nerve distribution. 2+ radial pulse. Imagin views left elbow personally reviewed demonstrating stable appearance of hardware with no acute abnormalities. Assessment: S/p above stated procedure, doing well Plan: 1) Pain control- Continue pain medications as prescribed. Risks of medications discussed 2) PT- None at this time per our instruction. 3) Immobilization-hinged elbow brace applied. Range of motion from 30 to 90 degrees. 4) Weight-bearing- NWB 5) Follow-up- Patient to follow up in 2 weeks. Salvatore Maier MD 12/23/2024 1:03 PM [facility] 12-23-2024 History of Presen t illness Narrative Summary: xray Radiology Service Progress Note PATIENT NAME: David Munoz DATE OF SERVICE: December 23, 2024 TIME: 9:32 AM PATIENT IDENTITY VERIFICATION COMPLETED USING TWO (2) IDENTIFIERS: Name and Date of confirmed by patient verbally. FALL SCREENING: Has the patient had 2 falls in the last year or 1 fall with injury or currently using an Ambulatory Assistive Device (Walker, Cane, Wheelchair, Crutches, etc.)? No PATIENT GENDER DATA: Assigned male at PATIENT RELEVANT IMPLANT DATA REVIEWED: Not Applicable PATIENT PRESENTS WITH AN IMPLANTABLE OR ATTACHED WAREHOUSE ASSOCIATE: No RADIOLOGY DEPARTMENT: General X-ray: Exam(s) Completed: Upper Extremity X-Ray(s): Elbow, left PERIPHERAL IV DATA: Not applicable SIGNED BY: RT Reyna(Migue) December 23, 2024 9:32 AM documented in this encounter [facility] 12-23-2024 Note HNO ID: [id number] Author: JIGNA MCGHEE RT(R) Service: Radiology Author Type: Technologist Type: Progress Notes Filed: 12/23/2024 09:33 Note Text: Summary: xray Radiology Service Progress Note PATIENT NAME: David Munoz DATE OF SERVICE: December 23, 2024 TIME: 9:32 AM PATIENT IDENTITY VERIFICATION COMPLETED USING TWO (2) IDENTIFIERS: Name and Date of confirmed by patient verbally. FALL SCREENING: Has the patient had 2 falls in the last year or 1 fall with injury or currently using an Ambulatory Assistive Device (Walker, Cane, Wheelchair, Crutches, etc.)? No PATIENT GENDER DATA: Assigned male at PATIENT RELEVANT IMPLANT DATA REVIEWED: Not Applicable PATIENT PRESENTS WITH AN IMPLANTABLE OR ATTACHED WAREHOUSE ASSOCIATE: No RADIOLOGY DEPARTMENT: General X-ray: Exam(s) Completed: Upper Extremity X-Ray(s): Elbow, left PERIPHERAL IV DATA: Not applicable SIGNED BY: RT Reyna(R) December 23, 2024 9:32 AM [facility] 12-20-2024 Telephone encounter Note Pt reminded of appointment on 12/23/24 and to have xrays completed prior to the day of his appointment. Pt was given hours and locations to have this completed. Pt verbalized understanding of instructions. Dona Fairbanks MA December 20, 2024 12:27 PM [facility] 12-20-2024 Miscellaneous Notes Pt reminded of appointment on +12/23/24 and to have xrays completed prior to the day of his appointment. Pt was given hours and locations to have this completed. Pt verbalized understanding of instructions. Dona Fairbanks MA December 20, 2024 12:27 PM documented in this encounter [facility] 12-14-2024 Note HNO ID: [id number] Author: DAVID CABAN MD Service: General Surgery Author Type: Physician Type: Progress Notes Filed: 12/17/2024 15:34 Note Text: Documentation Query Please clarify status of Acute Cholecystitis for this admission: Diagnosis Ruled Out This document will become part of the patient's medical record. [facility] 12-14-2024 Note HNO ID: [id number] Author: SEDA BELLO APRN.CNP Service: Orthopaedic Surgery Author Type: Nurse Practitioner Type: Progress Notes Filed: 12/14/2024 10:40 Note Text: ORTHOPAEDIC SURGERY DAILY PROGRESS NOTE Patient Name: David Munoz Date of Evaluation: December 14, 2024 Admission Date: 12/12/2024 Time of Evaluation: 9:30 AM ASSESSMENT: 34 year old male POD #1 Open reduction internal fixation left olecranon fracture PLAN: -Pain Control -PT/OT: Non Weight Bearing on Left upper extremity -DVT Prophylaxis: per primary -Ice/elevate extremity -D/C planning: anticipate home with self care. F/u with orthopedics 7-10 for staple, splint removal, and updated x-ray INTERVAL HPI: Patient monitored, no new events overnight. Found resting in bed. Well Controlled pain. Denies nausea/vomitting. Denies any numbness. Ready to go home OBJECTIVE: BP 102/60 Pulse 72 Temp 36.9 ?C (98.4 ?F) (Oral) Resp 18 Ht 182.9 cm (6') Wt 90.7 kg (199 lb 15.3 oz) SpO2 100% BMI 27.12 kg/m? Intake/Output Summary (Last 24 hours) No intake/output data recorded. Exam: General: NAD, AAOx3 Extremities: Left upper extremity: compression dressing and posterior long arm OCL splint intact and dry with arm in sling. NVI. Sensation intact. AROM of all digits. Normal PIN and radial nerve testing. Labs: BMP: Sodium 136 12/13/2024 Potassium 4.2 12/13/2024 Chloride 105 12/13/2024 CO2 26 12/13/2024 BUN 18 12/13/2024 Creatinine 0.97 12/13/2024 Glucose 103 12/13/2024 CBC: WBC 7.40 12/13/2024 Hemoglobin 14.6 12/13/2024 Hematocrit 41.3 12/13/2024 Platelet Count 210 12/13/2024 COAGS: APTT 26.1 12/12/2024 INR 1.2 12/12/2024 SED RATE/CRP: No results found for this basename: wsr:*,crp:* Imaging: none updated Seda Bello NP, CONING MACHINE OPERATOR.AIRCRAFT PNEUDRAULIC SYSTEMS MECHANIC Orthopaedic Surgery [phone] 12/14/2024 9:30 AM [facility] 12-13-2024 Note HNO ID: [id number] Author: ALFREDO DUNN APRN.GRID CASTING MACHINE OPERATOR HELPER Service: Anesthesiology Author Type: Nurse Gasser Machine Operator Type: Anesthesia Procedure Notes Filed: 12/13/2024 12:14 Note Text: ANESTHESIOLOGY PROCEDURE NOTE PIV General Information Procedure Start Time/Medication Administration: 12/13/2024 11:57 AM Procedure End Time: 12/13/2024 11:59 AM Patient Location: OR Staffing SRNA: Jaspreet Petit SRNA Performed by: DANIELE Preparation Sterility Preparation: hand hygiene performed prior to procedure, surgical cap used, mask used, skin prep agent completely dried prior to procedure Sterility Technique Not Completely Performed Due to Extreme Emergency: No Site Prep: alcohol Procedure Details Indication: need for IV access Needle Size/Type: 18 gauge angiocath Orientation: Right Location: Hand Imaging Guidance Used: No SIGNATURE: Alfredo Dunn APRN.CRNA PATIENT NAME: David Munoz DATE: December 13, 2024 TIME: 12:14 PM CSN: [id number] [facility] 12-13-2024 Note HNO ID: [id number] Author: ALFREDO DUNN APRN.CRNA Service: Anesthesiology Author Type: Nurse Gasser Machine Operator Type: Anesthesia Procedure Notes Filed: 12/13/2024 12:10 Note Text: ANESTHESIOLOGY PROCEDURE NOTE Airway General Information Procedure Start Time/Medication Administration: 12/13/2024 11:49 AM Procedure End Time: 12/13/2024 11:50 AM Patient location during procedure: OR Timeout Performed Pre-procedure: timeout performed Consent Obtained: Yes Patient identity confirmed: arm band, care steam tunnel feeder and patient sedated or unresponsive Staffing Anesthesiologist: Michael Lewis DO GRID CASTING MACHINE OPERATOR HELPER: Alfredo Dunn APRN.CRNA SRNA: Jaspreet Petit SRNA Performed by: DANIELE, GRID CASTING MACHINE OPERATOR HELPER and anesthesiologist Indications and Patient Condition Indications for airway management: anesthesia Preoxygenated: yes anesthesia circuit Patient position: sniffing Method: asleep Cricoid Pressure: No Manual In-Line Stabilization: No Difficult Mask: No Final Airway Details Final airway type: endotracheal airway Final Endotracheal Airway: ETT Cuffed: yes Successful intubation technique: direct laryngoscopy Devices used: intubating stylet Endotracheal tube insertion site: oral Blade: Rayna Blade size: #3 ETT size (mm): 8.0 Measured from: lips Measurement (cm): 24 Placement verified by: chest auscultation and capnometry Cormack-Lehane Classification: grade I - full view of glottis Number of attempts at approach: 1 SIGNATURE: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
== END 2025-02-10 23:59 | disposition home or self-care (01) ==
LOC: MEDOUTP 10:18
PROVIDERS: PCP Internal Medicine; Referring Provider Internal Medicine Infectious Disease; Visit Provider Internal Medicine Infectious Disease
DX: T81.40XA Infection following a procedure, unspecified, initial encounter (principal); B95.62 Methicillin resistant Staphylococcus aureus infection as the cause of diseases classified elsewhere; X58.XXXA Exposure to other specified factors, initial encounter
CPT/HCPCS: 36592; 80053; 85025; A4216

== ENCOUNTER 2025-02-17 08:55 | Outpatient (CLI) | payer OTHER, SELFPAY ==
[2025-02-17 09:29] LABS: Absolute Lymphocyte Count 1.67 X10^3/uL (0.83-4.51); Basophil# 0.04 X10^3/uL; Basophil% 0.9 % (0-1); Eosinophil# 0.21 X10^3/uL; Eosinophils% 4.7 % (0-5); Hematocrit 39.8 % (40-54); Hemoglobin 13.5 g/dL (13.0-16.5); Lymphocyte # 1.67 X10^3/ul (0.83-4.51); Lymphocyte % 37.6 % (19-41); Mean Corp Hgb Conc 33.9 g/dL (32-36); Mean Corpuscular Hgb 30.5 pg (27.0-32.0); Mean Platelet Vol. 12.4 fl (6.2-12.0); Monocyte# 0.47 X10^3/uL; Monocyte% 10.6 % (0-10); NRBC Flagged by Analyzer 0 % (0-5); Neutrophil # 2.04 X10^3/uL (2.7-7.7); Platelet Count 222 K/mm3 (150-450); RBC Distribution Width CV 12.1 % (11.6-14.6); Red Blood Count 4.42 M/mm3 (4.6-6.2); White Blood Count 4.4 K/mm3 (4.4-11.0)
[2025-02-17 09:59] LABS: ALB/GLOB Ratio 1.9 RATIO (0.9-2.4); AST(SGOT) 19 U/L (<=37); Alanine Aminotransfer ALT/SGPT < 5 U/L (<=46); Albumin, Serum 4.5 g/dL (3.5-5.0); Alkaline Phosphatase 51 U/L (40-129); Anion Gap 10 (5-15); BUN 17 mg/dL (4-19); Calcium,Total 9.7 mg/dL (7.6-11.0); Carbon Dioxide 26.1 mmol/L (21.0-32.0); Chloride 103 mmol/L (98-108); Creatinine, Serum 1.05 mg/dL (0.70-1.20); EST Glomerular Filtration Rate 95 (>60); Globulin 2.3 g/dL (2.2-4.2); Glucose 86 mg/dL (70-99); Potassium 4.1 mmol/L (3.3-5.1); Protein, Total 6.9 g/dL (5.9-8.4); Sodium Level 139 mmol/L (133-145)
[2025-02-17 17:24] LABS: Xtra Tube EP Lab EXTRA TUBE
== END 2025-02-17 23:59 | disposition home or self-care (01) ==
LOC: MEDOUTP 08:55
PROVIDERS: PCP Internal Medicine; Referring Provider Internal Medicine Infectious Disease; Visit Provider Internal Medicine Infectious Disease
DX: T81.40XA Infection following a procedure, unspecified, initial encounter (principal); B95.62 Methicillin resistant Staphylococcus aureus infection as the cause of diseases classified elsewhere; X58.XXXA Exposure to other specified factors, initial encounter
CPT/HCPCS: 36592; 80053; 85025; A4216

== ENCOUNTER 2025-02-24 09:26 | Outpatient (CLI) | payer OTHER, SELFPAY ==
[2025-02-24 10:12] LABS: Hematocrit 40.5 % (40-54); Hemoglobin 14.0 g/dL (13.0-16.5); Immature Granulocytes Count 0.010 X10^3/uL (0.0-0.0); Mean Corp Hgb Conc 34.6 g/dL (32-36); Mean Corpuscular Volume 90.6 fL (80-94); Mean Platelet Vol. 12.1 fl (6.2-12.0); NRBC Flagged by Analyzer 0 % (0-5); Platelet Count 202 K/mm3 (150-450); RBC Distribution Width CV 12.2 % (11.6-14.6); RBC Distribution Width SD 40.7 fl (35.1-43.9); Red Blood Count 4.47 M/mm3 (4.6-6.2); White Blood Count 4.5 K/mm3 (4.4-11.0)
[2025-02-24 10:50] LABS: AST(SGOT) 20 U/L (<=37); Alanine Aminotransfer ALT/SGPT 6 U/L (<=46); Albumin, Serum 4.5 g/dL (3.5-5.0); Alkaline Phosphatase 56 U/L (40-129); Anion Gap 11 (5-15); BUN 12 mg/dL (4-19); BUN/Creat Ratio 11.5 RATIO (10-20); Calcium,Total 9.6 mg/dL (7.6-11.0); Carbon Dioxide 24.8 mmol/L (21.0-32.0); Chloride 104 mmol/L (98-108); Globulin 2.4 g/dL (2.2-4.2); Glucose 83 mg/dL (70-99); Potassium 4.2 mmol/L (3.3-5.1)
[2025-02-24 18:06] LABS: Xtra Tube EP Lab EXTRA TUBE
== END 2025-02-24 23:59 | disposition home or self-care (01) ==
LOC: MEDOUTP 09:26
PROVIDERS: PCP Internal Medicine; Referring Provider Internal Medicine Infectious Disease; Visit Provider Internal Medicine Infectious Disease
DX: T81.40XA Infection following a procedure, unspecified, initial encounter (principal); B95.62 Methicillin resistant Staphylococcus aureus infection as the cause of diseases classified elsewhere; X58.XXXA Exposure to other specified factors, initial encounter
CPT/HCPCS: 36592; 80053; 85025; A4216

== ENCOUNTER 2025-03-03 14:26 | Outpatient (CLI) | payer OTHER, SELFPAY ==
[2025-03-03 15:15] LABS: Hematocrit 40.7 % (40-54); Hemoglobin 14.0 g/dL (13.0-16.5); Immature Granulocytes Count 0.020 X10^3/uL (0.0-0.0); Mean Corp Hgb Conc 34.4 g/dL (32-36); Mean Corpuscular Volume 89.8 fL (80-94); Mean Platelet Vol. 11.9 fl (6.2-12.0); NRBC Flagged by Analyzer 0 % (0-5); Platelet Count 230 K/mm3 (150-450); RBC Distribution Width CV 12.1 % (11.6-14.6); RBC Distribution Width SD 39.7 fl (35.1-43.9); Red Blood Count 4.53 M/mm3 (4.6-6.2); White Blood Count 7.1 K/mm3 (4.4-11.0)
[2025-03-03 16:18] LABS: AST(SGOT) 20 U/L (<=37); Alanine Aminotransfer ALT/SGPT < 5 U/L (<=46); Albumin, Serum 4.5 g/dL (3.5-5.0); Alkaline Phosphatase 53 U/L (40-129); Anion Gap 11 (5-15); BUN 16 mg/dL (4-19); BUN/Creat Ratio 16.3 RATIO (10-20); Calcium,Total 9.7 mg/dL (7.6-11.0); Carbon Dioxide 26.2 mmol/L (21.0-32.0); Chloride 102 mmol/L (98-108); Globulin 2.6 g/dL (2.2-4.2); Glucose 87 mg/dL (70-99); Potassium 4.2 mmol/L (3.3-5.1)
== END 2025-03-03 23:59 | disposition home or self-care (01) ==
LOC: MEDOUTP 14:26
PROVIDERS: PCP Internal Medicine; Referring Provider Internal Medicine Infectious Disease; Visit Provider Internal Medicine Infectious Disease
DX: T81.40XA Infection following a procedure, unspecified, initial encounter (principal); B95.62 Methicillin resistant Staphylococcus aureus infection as the cause of diseases classified elsewhere; X58.XXXA Exposure to other specified factors, initial encounter
CPT/HCPCS: 36592; 80053; 85025; A4216

== ENCOUNTER 2025-03-10 15:27 | Outpatient (CLI) | payer OTHER, SELFPAY | END 2025-03-10 23:59 | disposition home or self-care (01) | LOC: MEDOUTP 15:27 | PROVIDERS: PCP Internal Medicine; Referring Provider Internal Medicine Infectious Disease; Visit Provider Internal Medicine Infectious Disease | DX: Z45.2 Encounter for adjustment and management of vascular access device (principal) ==